=== PATIENT | female | born 1925 | race Asian ===

== ENCOUNTER 2016-08-01 09:33 | Inpatient (IN) | payer MEDICARE, MEDICAID ==
[~2016-08-01] VITALS: Ht 152.4 cm; Wt 54.4 kg
[~2016-08-01 09:33] MED LIST: ACETAMINOPHEN325 M1 ORAL; ASPIRIN-LOW81 MG ORAL; ATORVASTATIN CA10 MG ORAL; DITROPAN10 MG ORAL; DOXYCYCLINE HY100 M2 ORAL; KEFLEX500 M1 ORAL; MULTIVITAMINS1 EA13 ORAL; NAMENDA10 MG ORAL; NORVASC2.5 MG ORAL; SYNTHROID100 MCG ORAL; VASOTEC10 MG ORAL
[2016-08-01 09:35] VITALS: BP 146/75
[2016-08-01] MEDS ORDERED: DOCUSATE SODIU100 MG ORAL (09:42)
[2016-08-01] MEDS ORDERED: DITROPAN XL5 MG ORAL (09:43)
[2016-08-01] MEDS ORDERED: MILK OF MA2400 MG/10 ORAL (09:51)
--- NOTE | 2016-08-01 10:06 | Emergency Room Report ---
History of Present Illness General Chief Complaint: Generalized Weakness Source: Patient, Medical Record, EMS Present Illness HPI Patient is an 89-year-old female brought in by BLS for increased generalized weakness. Patient had prior history of dementia. History is markedly limited by patient's mental status. The patient denies any current pain. The patient appears to be markedly confused. Allergies: Coded Allergies: No Known Allergies (Unverified , 08/20/15) Patient History Past Medical History: see triage record Reviewed Nursing Documentation: PMH: Agreed, PSxH: Agreed Nursing Documentation-PMH Hx Hypertension: Yes Hx Diabetes: No - hypothyroidism Hx Cancer: No Hx Gastrointestinal Problems: Yes - Dysphagia History Of Psychiatric Problem: Yes - Demential with behavioral disturbance; Encephalopathy Hx Neurological Problems: Yes Hx Alzheimer's Disease: Yes Hx Seizures: Yes Review of Systems All Other Systems: limited - by mental status Physical Exam Vital Signs Date Time Temp Pulse Resp B/P Pulse Ox O2 Delivery O2 Flow Rate FiO2 08/01/16 09:26 97.5 110 18 154/105 99 Room Air General Appearance: no apparent distress, alert Eyes: bilateral eye other - right side facial droop ENT: normal pharynx Neck: full range of motion, supple Respiratory: lungs clear, normal breath sounds, no rhonchi Cardiovascular #1: normal peripheral pulses, regular rate, rhythm, no edema Gastrointestinal: normal bowel sounds, non tender, soft, no mass Musculoskeletal: normal inspection, other - right side foot plantar contraction Neurologic: alert, oriented x3, responsive, sensory intact Psychiatric: normal inspection Skin: no rash Medical Decision Making Diagnostic Impression: Primary Impression: UTI (urinary tract infection) Additional Impression: Altered level of consciousness ER Course Patient presented for altered level of consciousness and generalized weakness.Patient presented for generalized weakness. Differential diagnosis included was not limited to anemia, urinary tract infection, electrolyte abnormality, hypothyroidism, myocardial infarction, myasthenia gravis, dehydration, subdural hematoma , CVA among others. Because of complexity of patient's case laboratory testing and imaging studies were ordered.Laboratory testing was notable for elevated white blood count. The patient was noted to be moderately confused. A urinalysis showed evidence of urinary tract infection. Patient started on IV antibiotics. The patient will be admitted to the hospital for further management and treatment of urinary tract infection altered level consciousness. Labs Test 08/01/16 09:40 08/01/16 10:00 White Blood Count 13.1 K/UL (4.8-10.8) Red Blood Count 4.48 M/UL (4.20-5.40) Hemoglobin 13.4 G/DL (12.0-16.0) Hematocrit 42.6 % (37.0-47.0) Mean Corpuscular Volume 95 FL (80-99) Mean Corpuscular Hemoglobin 29.9 PG (27.0-31.0) Mean Corpuscular Hemoglobin Concent 31.4 G/DL (32.0-36.0) Red Cell Distribution Width 12.8 % (11.6-14.8) Platelet Count 371 K/UL (150-450) Mean Platelet Volume 5.8 FL (6.5-10.1) Neutrophils (%) (Auto) 81.9 % (45.0-75.0) Lymphocytes (%) (Auto) 13.4 % (20.0-45.0) Monocytes (%) (Auto) 3.8 % (1.0-10.0) Eosinophils (%) (Auto) 0.5 % (0.0-3.0) Basophils (%) (Auto) 0.5 % (0.0-2.0) Sodium Level 141 mEQ/L (135-145) Potassium Level 3.9 mEQ/L (3.4-4.9) Chloride Level 100 mEQ/L (98-107) Carbon Dioxide Level 23 mEQ/L (20-30) Anion Gap 18 (5-15) Blood Urea Nitrogen 20 mg/dL (7-23) Creatinine 1.3 mg/dL (0.5-0.9) Estimat Glomerular Filtration Rate mL/min (>60) Glucose Level 107 mg/dL (74-106) Lactic Acid Level 1.90 mmol/L (0.66-2.22) Calcium Level 9.2 mg/dL (8.6-10.2) Total Bilirubin 0.5 mg/dL (0.0-1.2) Aspartate Amino Transf (AST/SGOT) 20 U/L (5-40) Alanine Aminotransferase (ALT/SGPT) 20 U/L (3-33) Alkaline Phosphatase 66 U/L (35-104) Total Creatine Kinase 49 U/L (26-140) Creatine Kinase MB 2.8 ng/mL (< 3.8) Creatine Kinase MB Relative Index 5.7 Troponin I < 0.30 ng/mL (<=0.30) Pro-B-Type Natriuretic Peptide 1197 pg/mL (0-450) Total Protein 7.6 g/dL (6.6-8.7) Albumin 3.6 g/dL (3.5-5.2) Globulin 4.0 g/dL Albumin/Globulin Ratio 0.9 (1.0-2.7) Lipase 136 U/L (< 60) Urine Color Pale yellow Urine Appearance Turbid Urine pH 8 (4.5-8.0) Urine Specific [place] 1.015 (1.005-1.035) Urine Protein 3+ (NEGATIVE) Urine Glucose (UA) Negative (NEGATIVE) Urine Ketones 1+ (NEGATIVE) Urine Occult Blood 5+ (NEGATIVE) Urine Nitrite Positive (NEGATIVE) Urine Bilirubin Negative (NEGATIVE) Urine Urobilinogen Normal MG/DL (0.0-1.0) Urine Leukocyte Esterase 3+ (NEGATIVE) Urine RBC 10-15 /HPF (0 - 2) Urine WBC Tntc /HPF (0 - 2) Urine Squamous Epithelial Cells Few /LPF (NONE/OCC) Urine Bacteria Moderate /HPF (NONE) EKG Diagnostic Results Rate: normal - 97 Rhythm: NSR ST Segments: no acute changes Rhythm Strip Diag. Results EP Interpretation: yes Rhythm: NSR, no PVC's, no ectopy Last Vital Signs Date Time Temp Pulse Resp B/P Pulse Ox O2 Delivery O2 Flow Rate FiO2 08/01/16 09:26 97.5 110 18 154/105 99 Room Air Status: unchanged Disposition: ADMITTED INPATIENT Condition: Serious Terence Allison Aug 01, 2016 10:06
[2016-08-01 10:14] LABS: BASOPHILS % (AUTO) 0.5 % (0.0-2.0); EOSINOPHILS % (AUTO) 0.5 % (0.0-3.0); LYMPHOCYTES % (AUTO) 13.4 % (20.0-45.0); MEAN CORPUSCULAR HEMOGLOBIN 29.9 PG (27.0-31.0); MEAN CORPUSCULAR HGB CONC 31.4 G/DL (32.0-36.0); MEAN CORPUSCULAR VOLUME 95 FL (80-99); MEAN PLATELET VOLUME 5.8 FL (6.5-10.1); MONOCYTES % (AUTO) 3.8 % (1.0-10.0); NEUTROPHILS % (AUTO) 81.9 % (45.0-75.0); PLATELET COUNT 371 K/UL (150-450); RED BLOOD COUNT 4.48 M/UL (4.20-5.40); RED CELL DISTRIBUTION WIDTH 12.8 % (11.6-14.8); WHITE BLOOD COUNT 13.1 K/UL (4.8-10.8)
[2016-08-01 10:21] LABS: APPEARANCE,URINE TURBID; KETONES,URINE 1+ (NEGATIVE); LEUKOCYTE ESTERASE ,URINE 3+ (NEGATIVE); NITRITE,URINE POSITIVE (NEGATIVE); PH,URINE 8 (4.5-8.0); PROTEIN,URINE 3+ (NEGATIVE); UROBILINOGEN,URINE NORMAL MG/DL (0.0-1.0)
[2016-08-01 10:25] LABS: SQUAMOUS EPITHELIAL CELL,UR FEW /LPF (NONE/OCC); WBC,URINE TNTC /HPF (0 - 2)
[2016-08-01 10:26] LABS: BACTERIA,URINE MODERATE /HPF
[2016-08-01 10:28] LABS: ALANINE AMINOTRANSFERASE 20 U/L (3-33); ALBUMIN/GLOBULIN RATIO 0.9 (1.0-2.7); ANION GAP 18 (5-15); ASPARTATE AMINO TRANSFERASE 20 U/L (5-40); CALCIUM 9.2 mg/dL (8.6-10.2); CARBON DIOXIDE 23 mEQ/L (20-30); CHLORIDE 100 mEQ/L (98-107); CREATININE 1.3 mg/dL (0.5-0.9); HEMOLYSIS 7; LIPASE 136 U/L (< 60); POTASSIUM 3.9 mEQ/L (3.4-4.9); SODIUM 141 mEQ/L (135-145); TOTAL PROTEIN 7.6 g/dL (6.6-8.7); TROPONIN I < 0.30 ng/mL (<=0.30)
[2016-08-01] MEDS ORDERED: Tubing IV Cassette IV ONE (10:35)
[2016-08-01] MEDS ORDERED: NS 50 ML IV ONE (10:35)
[2016-08-01 10:38] LABS: CKMB 2.8 ng/mL (< 3.8)
--- NOTE | 2016-08-01 10:47 | Diagnostic Imaging Report ---
Indications: Altered mental status, right-sided weakness Technique: Continuous helical CT imaging of the brain was performed with nonionic exposure control on a Siemens sensation [address] scanner. Axial and coronal images were reconstructed at 5 mm slice thickness and interval. CTDI volume(s): 70 mGy Total DLP: 1425 mGy-cm Findings: Comparison: None Confluent low attenuation is present in the bilateral periventricular and deep cerebral white matter. Circumscribed foci of low attenuation/parenchymal loss in bilateral dowell radiata. Ventricles, cisterns, and sulci are diffusely prominent. No evidence of mass or hemorrhage, mass effect, midline shift, hydrocephalus, or increased intracranial pressure. Bone window images are unremarkable. Visualized paranasal sinuses and mastoid air cells are clear. IMPRESSION: No evidence of acute intracranial pathology . Early/subtle acute abnormalities may be missed, however. If clinically indicated, MRI of the brain without and with gadolinium may be of benefit in further evaluation. 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 Atrophy The CT scanner at [facility] is accredited by the [employer] and the scans are performed using protocols designed to limit radiation exposure to as low as reasonably achievable to attain images of sufficient resolution adequate for diagnostic evaluation.
[2016-08-01 12:00] VITALS: BP 139/71
[2016-08-01 13:17] VITALS: BP 153/103
--- NOTE | 2016-08-01 13:48 | Infectious Diseases Prog Note ---
Assessment/Plan Problems: (1) UTI (urinary tract infection) Assessment & Plan: will send urine culture and start cefepime (2) Altered level of consciousness Assessment & Plan: head CT is negative, recommend neurology consult (3) Weakness Assessment & Plan: multifactorial, consult PT/OT Subjective Allergies: Coded Allergies: No Known Allergies (Unverified , 08/20/15) Objective Vital Signs Last 24 Hour Vital Signs Date Time Temp Pulse Resp B/P Pulse Ox O2 Delivery O2 Flow Rate FiO2 08/01/16 13:09 96 16 139/90 98 Room Air 08/01/16 12:00 99 18 139/71 96 Room Air 08/01/16 09:35 109 18 146/75 99 Room Air 08/01/16 09:26 97.5 110 18 154/105 99 Room Air Height (Feet): 5 Weight (Pounds): 120 Laboratory Tests Test 08/01/16 09:40 08/01/16 10:00 White Blood Count 13.1 K/UL (4.8-10.8) H Red Blood Count 4.48 M/UL (4.20-5.40) Hemoglobin 13.4 G/DL (12.0-16.0) Hematocrit 42.6 % (37.0-47.0) Mean Corpuscular Volume 95 FL (80-99) Mean Corpuscular Hemoglobin 29.9 PG (27.0-31.0) Mean Corpuscular Hemoglobin Concent 31.4 G/DL (32.0-36.0) L Red Cell Distribution Width 12.8 % (11.6-14.8) Platelet Count 371 K/UL (150-450) Mean Platelet Volume 5.8 FL (6.5-10.1) L Neutrophils (%) (Auto) 81.9 % (45.0-75.0) H Lymphocytes (%) (Auto) 13.4 % (20.0-45.0) L Monocytes (%) (Auto) 3.8 % (1.0-10.0) Eosinophils (%) (Auto) 0.5 % (0.0-3.0) Basophils (%) (Auto) 0.5 % (0.0-2.0) Sodium Level 141 mEQ/L (135-145) Potassium Level 3.9 mEQ/L (3.4-4.9) Chloride Level 100 mEQ/L (98-107) Carbon Dioxide Level 23 mEQ/L (20-30) Anion Gap 18 (5-15) H Blood Urea Nitrogen 20 mg/dL (7-23) Creatinine 1.3 mg/dL (0.5-0.9) H Estimat Glomerular Filtration Rate mL/min (>60) Glucose Level 107 mg/dL (74-106) H Lactic Acid Level 1.90 mmol/L (0.66-2.22) Calcium Level 9.2 mg/dL (8.6-10.2) Total Bilirubin 0.5 mg/dL (0.0-1.2) Aspartate Amino Transf (AST/SGOT) 20 U/L (5-40) Alanine Aminotransferase (ALT/SGPT) 20 U/L (3-33) Alkaline Phosphatase 66 U/L (35-104) Total Creatine Kinase 49 U/L (26-140) Creatine Kinase MB 2.8 ng/mL (< 3.8) Creatine Kinase MB Relative Index 5.7 Troponin I < 0.30 ng/mL (<=0.30) Pro-B-Type Natriuretic Peptide 1197 pg/mL (0-450) H Total Protein 7.6 g/dL (6.6-8.7) Albumin 3.6 g/dL (3.5-5.2) Globulin 4.0 g/dL Albumin/Globulin Ratio 0.9 (1.0-2.7) L Lipase 136 U/L (< 60) H Urine Color Pale yellow Urine Appearance Turbid Urine pH 8 (4.5-8.0) Urine Specific [place] 1.015 (1.005-1.035) Urine Protein 3+ (NEGATIVE) H Urine Glucose (UA) Negative (NEGATIVE) Urine Ketones 1+ (NEGATIVE) H Urine Occult Blood 5+ (NEGATIVE) H Urine Nitrite Positive (NEGATIVE) H Urine Bilirubin Negative (NEGATIVE) Urine Urobilinogen Normal MG/DL (0.0-1.0) Urine Leukocyte Esterase 3+ (NEGATIVE) H Urine RBC 10-15 /HPF (0 - 2) H Urine WBC Tntc /HPF (0 - 2) H Urine Squamous Epithelial Cells Few /LPF (NONE/OCC) Urine Bacteria Moderate /HPF (NONE) H Chai Monte M.D. Aug 01, 2016 13:48
--- NOTE | 2016-08-01 14:57 | Consultation ---
History of Present Illness General Date patient seen: Aug 01, 2016 Chief Complaint: Generalized Weakness Referring physician: dr Ponce Reason for Consultation: + PPD Present Illness HPI 89-year-old female with hx of dementia brought in by BLS for increased generalized weakness. The patient appeared to be markedly confused. She was diagnosed to have sepsis and UTI, and admitted for further work up. She had positive ppd, and i was asked to evaluate her. she is confused and can't give any history. Allergies: Coded Allergies: No Known Allergies (Unverified , 08/20/15) Medication History Scheduled Acetaminophen* (Acetaminophen*), 650 MG ORAL Q4H, (Reported) Aspirin (Aspirin EC), 81 MG ORAL DAILY, (Reported) Atorvastatin Calcium* (Lipitor*), 5 MG ORAL BEDTIME, (Reported) Cephalexin (Cephalexin), 500 MG ORAL FOUR TIMES A DAY Docusate Sodium* (Docusate Sodium*), 100 MG ORAL TWICE A DAY, (Reported) Doxycycline Hyclate (Doxycycline Hyclate), 100 MG ORAL EVERY 12 HOURS Enalapril Maleate* (Vasotec*), 10 MG ORAL DAILY, (Reported) Levothyroxine Sodium* (Synthroid*), 100 MCG ORAL DAILY, (Reported) Memantine Hcl* (Namenda*), 28 MG ORAL DAILY, (Reported) Multivitamin with Minerals (Multivitamins with Minerals), 1 TAB ORAL DAILY, ( Reported) Oxybutynin Chloride (Oxybutynin Chloride), 5 MG ORAL DAILY, (Reported) Oxybutynin Chloride (Ditropan Xl), 5 MG ORAL DAILY, (Reported) Scheduled PRN Magnesium Hydroxide* (Milk Of Magnesia*), 30 ML ORAL DAILY PRN for Constipation, (Reported) Patient History Limited by: medical condition Healthcare decision maker Resuscitation status Advanced Directive on File Past Medical/Surgical History Past Medical/Surgical History: (1) Alzheimer's dementia (2) Encephalopathy Review of Systems All Other Systems: negative except mentioned in HPI Physical Exam General Appearance: WD/WN Lines, tubes and drains: peripheral, central line HEENT: normocephalic Neck: non-tender, normal alignment Respiratory/Chest: chest wall non-tender, lungs clear Cardiovascular/Chest: normal peripheral pulses, normal rate Abdomen: normal bowel sounds Genitourinary/Rectal: normal genital exam Extremities: normal range of motion Last 24 Hour Vital Signs Date Time Temp Pulse Resp B/P Pulse Ox O2 Delivery O2 Flow Rate FiO2 08/01/16 13:17 97.6 125 18 153/103 99 Nasal Cannula 2.0 126 08/01/16 13:09 96 16 139/90 98 Room Air 08/01/16 12:00 99 18 139/71 96 Room Air 08/01/16 09:35 109 18 146/75 99 Room Air 08/01/16 09:26 97.5 110 18 154/105 99 Room Air Laboratory Tests Test 08/01/16 09:40 08/01/16 10:00 White Blood Count 13.1 K/UL (4.8-10.8) H Red Blood Count 4.48 M/UL (4.20-5.40) Hemoglobin 13.4 G/DL (12.0-16.0) Hematocrit 42.6 % (37.0-47.0) Mean Corpuscular Volume 95 FL (80-99) Mean Corpuscular Hemoglobin 29.9 PG (27.0-31.0) Mean Corpuscular Hemoglobin Concent 31.4 G/DL (32.0-36.0) L Red Cell Distribution Width 12.8 % (11.6-14.8) Platelet Count 371 K/UL (150-450) Mean Platelet Volume 5.8 FL (6.5-10.1) L Neutrophils (%) (Auto) 81.9 % (45.0-75.0) H Lymphocytes (%) (Auto) 13.4 % (20.0-45.0) L Monocytes (%) (Auto) 3.8 % (1.0-10.0) Eosinophils (%) (Auto) 0.5 % (0.0-3.0) Basophils (%) (Auto) 0.5 % (0.0-2.0) Sodium Level 141 mEQ/L (135-145) Potassium Level 3.9 mEQ/L (3.4-4.9) Chloride Level 100 mEQ/L (98-107) Carbon Dioxide Level 23 mEQ/L (20-30) Anion Gap 18 (5-15) H Blood Urea Nitrogen 20 mg/dL (7-23) Creatinine 1.3 mg/dL (0.5-0.9) H Estimat Glomerular Filtration Rate mL/min (>60) Glucose Level 107 mg/dL (74-106) H Lactic Acid Level 1.90 mmol/L (0.66-2.22) Calcium Level 9.2 mg/dL (8.6-10.2) Total Bilirubin 0.5 mg/dL (0.0-1.2) Aspartate Amino Transf (AST/SGOT) 20 U/L (5-40) Alanine Aminotransferase (ALT/SGPT) 20 U/L (3-33) Alkaline Phosphatase 66 U/L (35-104) Total Creatine Kinase 49 U/L (26-140) Creatine Kinase MB 2.8 ng/mL (< 3.8) Creatine Kinase MB Relative Index 5.7 Troponin I < 0.30 ng/mL (<=0.30) Pro-B-Type Natriuretic Peptide 1197 pg/mL (0-450) H Total Protein 7.6 g/dL (6.6-8.7) Albumin 3.6 g/dL (3.5-5.2) Globulin 4.0 g/dL Albumin/Globulin Ratio 0.9 (1.0-2.7) L Lipase 136 U/L (< 60) H Urine Color Pale yellow Urine Appearance Turbid Urine pH 8 (4.5-8.0) Urine Specific [place] 1.015 (1.005-1.035) Urine Protein 3+ (NEGATIVE) H Urine Glucose (UA) Negative (NEGATIVE) Urine Ketones 1+ (NEGATIVE) H Urine Occult Blood 5+ (NEGATIVE) H Urine Nitrite Positive (NEGATIVE) H Urine Bilirubin Negative (NEGATIVE) Urine Urobilinogen Normal MG/DL (0.0-1.0) Urine Leukocyte Esterase 3+ (NEGATIVE) H Urine RBC 10-15 /HPF (0 - 2) H Urine WBC Tntc /HPF (0 - 2) H Urine Squamous Epithelial Cells Few /LPF (NONE/OCC) Urine Bacteria Moderate /HPF (NONE) H Height (Feet): 5 Weight (Pounds): 120 Medications Current Medications Medications (Trade) Dose Ordered Sig/Odalis Route PRN Reason Start Time Stop Time Status Last Admin Dose Admin Cefepime HCl/ Dextrose (Maxipime/D5W 50ml) 50 ml @ 100 mls/hr Q12H IVPB 08/01/16 15:00 08/08/16 14:59 Assessment/Plan Problem List: (1) UTI (urinary tract infection) ICD Codes: N39.0 - Urinary tract infection, site not specified SNOMED: 47334572 (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 SNOMED: 124591554 (3) Encephalopathy ICD Codes: G93.40 - Encephalopathy, unspecified SNOMED: 96582720, 411926321 (4) Weakness ICD Codes: R53.1 - Weakness SNOMED: 80911785 (5) Altered level of consciousness ICD Codes: R40.4 - Transient alteration of awareness SNOMED: 6883200 (6) Dementia ICD Codes: F03.90 - Unspecified dementia without behavioral disturbance SNOMED: 54318196 (7) Alzheimer's dementia ICD Codes: G30.9 - Alzheimer's disease, unspecified SNOMED: 07448416 Assessment/Plan IV antibiotics check cultures CT chest to rule out active TB check electrolytes OCTAVIA GORMAN Aug 01, 2016 14:57
[2016-08-01] MEDS ORDERED: Morphine Sulfate 2mg/ml Inj IVP PRN (15:00)
[2016-08-01] MEDS ORDERED: Zolpidem 5mg tab ORAL PRN (15:00)
[2016-08-01] MEDS ORDERED: LORazepam Inj 2mg/ml 1ml IV PRN (15:00)
[2016-08-01] MEDS ORDERED: Mylanta II UD 30ml ORAL PRN (15:00)
[2016-08-01] MEDS ORDERED: Miralax 17gm pkt ORAL PRN (15:00)
[2016-08-01 16:00] VITALS: BP 154/90
[2016-08-01 19:00] VITALS: BP 147/88
[2016-08-01] MEDS: NovoLOG Insulin Flexpen SUBQ SCH (20:28)
--- NOTE | 2016-08-01 20:58 | History and Physical Report ---
DATE OF ADMISSION: 08/01/2016 TIME SEEN: At 2 p.m. CONSULTANTS: 1. Chai Monte M.D. 2. Cira Dorado M.D. 3. Dilma Seay M.D. CHIEF COMPLAINT: Increased confusion, weakness, and UTI. HISTORY OF PRESENT ILLNESS: This is an 89-year-old female from [facility] with the above-mentioned diagnosis. Currently, confused in bed and not talking much. PAST MEDICAL HISTORY: Includes hypertension, encephalopathy, and hypercholesterolemia. PAST SURGICAL HISTORY: Unknown. MEDICATIONS: Includes cefepime for now and IV fluids. ALLERGIES: Denies. SOCIAL HISTORY: No smoking, no alcohol, and no intravenous drug abuse. FAMILY HISTORY: Noncontributory. REVIEW OF SYSTEMS: Not available. PHYSICAL EXAMINATION: GENERAL: Calm in bed, oriented x1, and in no acute distress. VITAL SIGNS: Show temperature 97 degrees, pulse 125, respirations 18, and blood pressure 153/103. CARDIOVASCULAR: No murmur. LUNGS: Distant and clear. ABDOMEN: Bowel sounds are positive. Nontender and nondistended. EXTREMITIES: No cyanosis, clubbing, or edema. NEUROLOGICAL: The patient moves all extremities. She does not want to follow commands. LABORATORY DATA: Laboratory exam show white count 30, hemoglobin and hematocrit are 13 and 42, and platelets are 371,000. BMP shows BUN 20, creatinine 1.3, and glucose 107. BNP is 1197. Lipase 136. ASSESSMENT: 1. Weakness. 2. Tachycardia. 3. Urinary tract infection. 4. Hypertension. 5. Encephalopathy. 6. Hypercholesterolemia. PLAN: Continue premedications. OT, PT, and dietary evaluation. CBC and BMP in the morning. Antibiotics per Infectious Disease. Check labs. Resume home medications. Dr. Monte, Dr. Dorado, Dr. Seay, and Dr. Trujillo to consult. Daniel Ponce D.O. DR: SHANKAR JOB#: [id number] CC:
--- NOTE | 2016-08-01 23:07 | Consultation ---
DATE OF CONSULTATION: INFECTIOUS DISEASE CONSULTATION CONSULTING PHYSICIAN: Chai Monte M.D. REQUESTING PHYSICIAN: Daniel Ponce D.O. REASON FOR CONSULTATION: Urinary tract infection and generalized weakness. Recommendation for antibiotics therapy. HISTORY OF PRESENT ILLNESS: The patient is an 89-year-old female with past medical history of dementia with behavioral disturbance and encephalopathy, who was brought in to [facility] for increased generalized weakness. The patient had history of dementia with poor cognition. Denied any current symptom, but she is a poor historian. History was mainly obtained from the medical record and the nursing staff. The patient seems to be confused and unable to provide good history. In the ED, the patient had temperature of 97.5 degrees with pulse of 110 and O2 saturation of 99% on room air. The white count was found to be elevated around 15.1 with urinalysis showed evidence of urinary tract infection. So, I was asked by the primary provider for antibiotics recommendation and management. PAST MEDICAL HISTORY: Significant for hypertension, dysphagia, dementia with behavioral disturbances, encephalopathy, Alzheimer, and seizure disorder. PAST SURGICAL HISTORY: Negative. MEDICATIONS: She is on enalapril, Namenda, Ditropan, Synthroid, Lipitor, Tylenol, morphine, MiraLAX, Zofran, Ambien, Ativan, Mylanta, and dextrose. ALLERGIES: She has no known drug allergy. SOCIAL HISTORY: She is a [facility] resident. No recent drugs, tobacco, or alcohol. FAMILY HISTORY: Unable to obtain. REVIEW OF SYSTEMS: Unable to obtain. The patient is a poor historian. PHYSICAL EXAMINATION: GENERAL: An elderly female, demented, confused, lying in bed, alert, nonverbal, and not in distress. VITAL SIGNS: Temperature 97.6 degrees, pulse 125, respirations 18, blood pressure 153/103, and pulse oximetry 99% on two liters nasal cannula. HEENT: Normocephalic and atraumatic. Pupils reactive to light. Pale sclera. Dry oral mucosa. No exudate. NECK: Supple. No lymphadenopathy. CARDIOVASCULAR: She is tachycardic. S1 and S2 positive. LUNGS: Clear bilaterally. No wheezing or rhonchi. ABDOMEN: Soft, nontender, and nondistended. Positive bowel sounds. No hepatosplenomegaly or ascites. EXTREMITIES: No edema or cyanosis. LABORATORY DATA: Labs showed white count of 13.1, hemoglobin of 13.4, and platelet count of 371,000. BUN of 20 and creatinine of 1.3. AST of 20 and ALT of 20. Lipase of 136. Urinalysis showed positive nitrates, +3 leukocyte esterase, white cell count too numerous to count, and moderate bacteria. MICROBIOLOGY: Pending. IMAGING: She had a head CT scan, showed no evidence of acute intracranial pathology. ASSESSMENT AND PLAN: 1. Urinary tract infection. The patient will be started empirically on cefepime. We will send for urine culture. Adjust antibiotics as per culture results. 2. Altered mental status, could be partially due to urinary tract infection, but recommend Neurology consultation for further evaluation and management. 3. Weakness, multifactorial. Continue PT, OT, and hydration. 4. Dementia, Alzheimer. Continue supportive care and dementia medicine. 5. Hypertension. Continue blood pressure medicine to keep systolic less than 140. 6. Seizure disorder. Continue seizure medications and neuro check. Chai Monte M.D. DR: ASHA JOB#: [id number] CC: JOSELUIS
[2016-08-02] VITALS (7 sets, daily range): BP systolic 115–168; BP diastolic 55–84
[2016-08-02] MEDS: NovoLOG Insulin Flexpen SUBQ SCH ×4 (05:51→22:25)
[2016-08-02 07:14] LABS: BASOPHILS % (AUTO) 0.5 % (0.0-2.0); EOSINOPHILS % (AUTO) 1.8 % (0.0-3.0); LYMPHOCYTES % (AUTO) 27.1 % (20.0-45.0); MEAN CORPUSCULAR HEMOGLOBIN 30.3 PG (27.0-31.0); MEAN CORPUSCULAR VOLUME 98 FL (80-99); MEAN PLATELET VOLUME 5.6 FL (6.5-10.1); MONOCYTES % (AUTO) 5.6 % (1.0-10.0); NEUTROPHILS % (AUTO) 64.9 % (45.0-75.0); PLATELET COUNT 331 K/UL (150-450); RED BLOOD COUNT 3.87 M/UL (4.20-5.40); RED CELL DISTRIBUTION WIDTH 12.4 % (11.6-14.8); WHITE BLOOD COUNT 10.7 K/UL (4.8-10.8)
[2016-08-02 08:16] LABS: ALANINE AMINOTRANSFERASE 16 U/L (3-33); ANION GAP 16 (5-15); ASPARTATE AMINO TRANSFERASE 19 U/L (5-40); CARBON DIOXIDE 22 mEQ/L (20-30); CHLORIDE 109 mEQ/L (98-107); CHOLESTEROL 129 mg/dL (< 200); CHOLESTEROL/HDL RATIO 5.9 (3.3-4.4); CREATININE 1.4 mg/dL (0.5-0.9); HEMOLYSIS 3; LDL CHOLESTEROL (CALC.) 82 mg/dL (60-99); POTASSIUM 4.4 mEQ/L (3.4-4.9); SODIUM 147 mEQ/L (135-145); TOTAL PROTEIN 6.4 g/dL (6.6-8.7)
[2016-08-02] MEDS: Memantine 10mg tab ORAL SCH ×2 (09:00→22:24)
--- NOTE | 2016-08-02 10:49 | Diagnostic Imaging Report ---
Indication: Chest pain Technique: Continuous helical transaxial imaging of the chest was obtained from the thoracic inlet to the upper abdomen after intravenous nonionic contrast administration. Coronal 2-D reformats were also obtained. Total Dose length Product (DLP): [address] Dose Index Volume (CTDIvol): 8, 33, 18 mGy Comparison: none Findings: There is a slight shift of the heart to the left side. There is mild thickening of the pleura at the left lung base. Minimal linear reticular densities are present at the left lung base likely scarring with resultant mild volume loss. There is no consolidation/airspace disease. Some breathing motion artifact noted at the lung bases. Extensive calcifications are present over the breasts bilaterally. No adenopathy seen. Aorta shows mural calcification and is mildly ectatic. The heart is enlarged. High density foci noted centrally within the kidneys, which are only partially visualized on this examination. The phase of enhancement on this exam is arterial. Therefore the high density foci probably represent stones, rather than excreted contrast. Findings may be confirmed on CT without contrast material or ultrasound. There are multiple hypodense masses bilaterally, incompletely assessed involving the kidneys. These are probably cysts. Impression: No mass identified within the chest. Pleural and parenchymal scarring at the left lung base with some volume loss noted. Arterial vascular disease Suspicion of renal calculi bilaterally, incompletely and inadequately assessed. Additional imaging suggested for confirmation. Suggestion of bilateral renal cysts, incompletely assessed.
[2016-08-02] MEDS ORDERED: Enalapril 5mg tab ONE (11:04)
[2016-08-02] MEDS: Oxybutynin 5mg tab ORAL SCH (11:12)
--- NOTE | 2016-08-02 15:18 | General Progress Note ---
Assessment/Plan Problem List: (1) UTI (urinary tract infection) ICD Codes: N39.0 - Urinary tract infection, site not specified SNOMED: 69199502 (2) Encephalopathy ICD Codes: G93.40 - Encephalopathy, unspecified SNOMED: 35509844, 295150553 (3) Altered level of consciousness ICD Codes: R40.4 - Transient alteration of awareness SNOMED: 2513291 (4) Weakness ICD Codes: R53.1 - Weakness SNOMED: 87942913 (5) Hypertensive urgency ICD Codes: I10 - Essential (primary) hypertension SNOMED: 190768358 (6) Tachycardia ICD Codes: R00.0 - Tachycardia, unspecified SNOMED: 1571321 Status: stable, progressing, tolerating diet Assessment/Plan ot pt diet abx cardio f/u cbc bmp am psyc transfer Subjective Constitutional: Reports: weakness Allergies: Coded Allergies: No Known Allergies (Unverified , 08/20/15) All Systems: reviewed and negative except above Subjective sleepy calm Objective Last 24 Hour Vital Signs Date Time Temp Pulse Resp B/P Pulse Ox O2 Delivery O2 Flow Rate FiO2 08/02/16 12:00 97.0 75 18 139/80 98 Room Air 08/02/16 09:00 140/77 08/02/16 08:00 97.5 71 20 135/55 100 Room Air 08/02/16 04:00 96.8 100 20 115/69 96 Room Air 08/02/16 02:22 89 116/71 08/02/16 00:00 97.7 115 20 168/84 95 Room Air 08/01/16 19:00 97.1 98 18 147/88 Room Air 18 08/01/16 16:00 96.6 120 20 154/90 98 Room Air Intake and Output 08/01/16 08/02/16 19:00 07:00 Intake Total 50 ml 360 ml Output Total 650 ml Balance 50 ml -290 ml Intake Oral 0 ml 360 ml IV Total 50 ml Output Urine Total 650 ml Laboratory Tests 08/02/16 05:45: White Blood Count 10.7, Red Blood Count 3.87L, Hemoglobin 11.7L, Hematocrit 37.8 , Mean Corpuscular Volume 98, Mean Corpuscular Hemoglobin 30.3, Mean Corpuscular Hemoglobin Concent 31.0L, Red Cell Distribution Width 12.4, Platelet Count 331, Mean Platelet Volume 5.6L, Neutrophils (%) (Auto) 64.9, Lymphocytes (%) (Auto) 27.1, Monocytes (%) (Auto) 5.6, Eosinophils (%) (Auto) 1.8, Basophils (%) (Auto) 0.5, Sodium Level 147H, Potassium Level 4.4, Chloride Level 109H, Carbon Dioxide Level 22, Anion Gap 16H, Blood Urea Nitrogen 23, Creatinine 1.4H, Estimat Glomerular Filtration Rate , Glucose Level 82, Calcium Level 9.0, Total Bilirubin 0.4, Aspartate Amino Transf (AST/SGOT) 19, Alanine Aminotransferase (ALT/SGPT) 16, Alkaline Phosphatase 55, Total Protein 6.4L, Albumin 3.3L, Globulin 3.1, Albumin/Globulin Ratio 1.0, Triglycerides Level 125 , Cholesterol Level 129, LDL Cholesterol 82, HDL Cholesterol 22, Cholesterol/ HDL Ratio 5.9H, Thyroid Stimulating Hormone (TSH) 2.010 Height (Feet): 5 Weight (Pounds): 120 General Appearance: lethargic EENT: normal ENT inspection Neck: normal alignment Cardiovascular: normal peripheral pulses, normal rate, regular rhythm Respiratory/Chest: chest wall non-tender, lungs clear, normal breath sounds Abdomen: normal bowel sounds, non tender, soft Extremities: normal inspection Edema: no edema noted Arm (L), no edema noted Arm (R), no edema noted Leg (L), no edema noted Leg (R), no edema noted Pedal (L), no edema noted Pedal (R), no edema noted Generalized Neurologic: motor weakness Skin: normal pigmentation, warm/dry SOURAV WEBB Aug 02, 2016 15:18
--- NOTE | 2016-08-02 18:13 | Pulmonology Progress Note ---
Assessment/Plan Problems: (1) UTI (urinary tract infection) (2) PPD positive (3) Encephalopathy (4) Weakness (5) Altered level of consciousness (6) Dementia (7) Alzheimer's dementia Assessment/Plan ct reviewed, no pulmonary finding should be treated with INh for 6 month check cultures continue antibiotic tolerating diet. Subjective ROS Limited/Unobtainable: Yes Interval Events: confused Allergies: Coded Allergies: No Known Allergies (Unverified , 08/20/15) Objective Last 24 Hour Vital Signs Date Time Temp Pulse Resp B/P Pulse Ox O2 Delivery O2 Flow Rate FiO2 08/02/16 15:55 97.0 88 20 153/74 96 Room Air 08/02/16 12:00 97.0 75 18 139/80 98 Room Air 08/02/16 09:00 140/77 08/02/16 08:00 97.5 71 20 135/55 100 Room Air 08/02/16 04:00 96.8 100 20 115/69 96 Room Air 08/02/16 02:22 89 116/71 08/02/16 00:00 97.7 115 20 168/84 95 Room Air 08/01/16 19:00 97.1 98 18 147/88 Room Air 18 Intake and Output 08/01/16 08/02/16 19:00 07:00 Intake Total 50 ml 360 ml Output Total 650 ml Balance 50 ml -290 ml Intake Oral 0 ml 360 ml IV Total 50 ml Output Urine Total 650 ml General Appearance: WD/WN HEENT: normocephalic, atraumatic Respiratory/Chest: chest wall non-tender, lungs clear Cardiovascular: normal peripheral pulses, regular rhythm Abdomen: normal bowel sounds, soft, non tender Extremities: no cyanosis Microbiology Date/Time Source Procedure Growth Status 08/01/16 10:00 Urine,Clean Catch Urine Culture - Preliminary Gram Negative Bacillus 1 Resulted Laboratory Tests 08/02/16 05:45: White Blood Count 10.7, Red Blood Count 3.87L, Hemoglobin 11.7L, Hematocrit 37.8 , Mean Corpuscular Volume 98, Mean Corpuscular Hemoglobin 30.3, Mean Corpuscular Hemoglobin Concent 31.0L, Red Cell Distribution Width 12.4, Platelet Count 331, Mean Platelet Volume 5.6L, Neutrophils (%) (Auto) 64.9, Lymphocytes (%) (Auto) 27.1, Monocytes (%) (Auto) 5.6, Eosinophils (%) (Auto) 1.8, Basophils (%) (Auto) 0.5, Sodium Level 147H, Potassium Level 4.4, Chloride Level 109H, Carbon Dioxide Level 22, Anion Gap 16H, Blood Urea Nitrogen 23, Creatinine 1.4H, Estimat Glomerular Filtration Rate , Glucose Level 82, Calcium Level 9.0, Total Bilirubin 0.4, Aspartate Amino Transf (AST/SGOT) 19, Alanine Aminotransferase (ALT/SGPT) 16, Alkaline Phosphatase 55, Total Protein 6.4L, Albumin 3.3L, Globulin 3.1, Albumin/Globulin Ratio 1.0, Triglycerides Level 125 , Cholesterol Level 129, LDL Cholesterol 82, HDL Cholesterol 22, Cholesterol/ HDL Ratio 5.9H, Thyroid Stimulating Hormone (TSH) 2.010 Current Medications Medications (Trade) Dose Ordered Sig/Odalis Route PRN Reason Start Time Stop Time Status Last Admin Dose Admin Acetaminophen (Tylenol) 650 mg Q4H PRN ORAL fever 08/01/16 15:00 08/31/16 14:59 Al Hydroxide/Mg Hydroxide (Mylanta II) 30 ml Q6H PRN ORAL dyspepsia 08/01/16 15:00 08/31/16 14:59 Atorvastatin Calcium (Lipitor) 5 mg BEDTIME ORAL 08/01/16 21:00 08/31/16 20:59 08/01/16 20:26 Cefepime HCl/ Dextrose (Maxipime/D5W 50ml) 50 ml @ 100 mls/hr Q12H IVPB 08/01/16 15:00 08/08/16 14:59 08/02/16 11:14 Dextrose (Dextrose 50%) STAT PRN IV Hypoglycemia 08/01/16 15:00 08/31/16 14:59 Enalapril Maleate (Vasotec) 10 mg DAILY ORAL 08/02/16 09:00 09/01/16 08:59 Insulin Aspart (NovoLOG) BEFORE MEALS AND HS SUBQ 08/01/16 21:00 08/31/16 20:59 08/02/16 16:30 Levothyroxine Sodium (Synthroid) 100 mcg DAILY@0630 ORAL 08/02/16 06:30 09/01/16 06:29 08/02/16 05:53 Lorazepam (Ativan 2mg/ml 1ml) 0.5 mg Q4H PRN IV For Anxiety 08/01/16 15:00 08/08/16 14:59 08/01/16 16:51 Memantine (Namenda) 10 mg Q12HR ORAL 08/02/16 09:00 09/01/16 08:59 Morphine Sulfate (Morphine Sulfate) 1 mg EVERY 4 HOURS PRN IVP For Pain 08/01/16 15:00 08/08/16 14:59 08/02/16 01:03 Ondansetron HCl (Zofran) 4 mg Q6H PRN IVP Nausea & Vomiting 08/01/16 15:00 08/31/16 14:59 Oxybutynin Chloride (Ditropan) 5 mg DAILY ORAL 08/02/16 09:00 09/01/16 08:59 08/02/16 11:12 Polyethylene Glycol (Miralax) 17 gm HSPRN PRN ORAL Constipation 08/01/16 15:00 08/31/16 14:59 Zolpidem Tartrate (Ambien) 5 mg HSPRN PRN ORAL Insomnia 08/01/16 15:00 08/31/16 14:59 OCTAVIA GORMAN Aug 02, 2016 18:13
--- NOTE | 2016-08-02 18:26 | Infectious Diseases Prog Note ---
Assessment/Plan Problems: (1) UTI (urinary tract infection) Assessment & Plan: await urine culture, continue cefepime (2) Altered level of consciousness Assessment & Plan: head CT is negative, recommend neurology consult (3) Weakness Assessment & Plan: multifactorial, consult PT/OT Subjective ROS Limited/Unobtainable: Yes Allergies: Coded Allergies: No Known Allergies (Unverified , 08/20/15) Subjective she was doing ok, up in bed, demented, not in distress. Objective Vital Signs Last 24 Hour Vital Signs Date Time Temp Pulse Resp B/P Pulse Ox O2 Delivery O2 Flow Rate FiO2 08/02/16 15:55 97.0 88 20 153/74 96 Room Air 08/02/16 12:00 97.0 75 18 139/80 98 Room Air 08/02/16 09:00 140/77 08/02/16 08:00 97.5 71 20 135/55 100 Room Air 08/02/16 04:00 96.8 100 20 115/69 96 Room Air 08/02/16 02:22 89 116/71 08/02/16 00:00 97.7 115 20 168/84 95 Room Air 08/01/16 19:00 97.1 98 18 147/88 Room Air 18 Height (Feet): 5 Weight (Pounds): 120 General Appearance: WD/WN, no acute distress HEENT: normocephalic, atraumatic, anicteric, mucous membranes moist Respiratory/Chest: chest wall non-tender, lungs clear, normal breath sounds, no respiratory distress, no accessory muscle use Cardiovascular: normal peripheral pulses, normal rate, regular rhythm, no gallop/murmur Abdomen: normal bowel sounds, soft, non tender, no organomegaly, non distended , no mass, no scars Extremities: no cyanosis, no clubbing Skin: no rash, no lesions, no ulcers Microbiology Date/Time Source Procedure Growth Status 08/01/16 10:00 Urine,Clean Catch Urine Culture - Preliminary Gram Negative Bacillus 1 Resulted Laboratory Tests Test 08/02/16 05:45 White Blood Count 10.7 K/UL (4.8-10.8) Red Blood Count 3.87 M/UL (4.20-5.40) L Hemoglobin 11.7 G/DL (12.0-16.0) L Hematocrit 37.8 % (37.0-47.0) Mean Corpuscular Volume 98 FL (80-99) Mean Corpuscular Hemoglobin 30.3 PG (27.0-31.0) Mean Corpuscular Hemoglobin Concent 31.0 G/DL (32.0-36.0) L Red Cell Distribution Width 12.4 % (11.6-14.8) Platelet Count 331 K/UL (150-450) Mean Platelet Volume 5.6 FL (6.5-10.1) L Neutrophils (%) (Auto) 64.9 % (45.0-75.0) Lymphocytes (%) (Auto) 27.1 % (20.0-45.0) Monocytes (%) (Auto) 5.6 % (1.0-10.0) Eosinophils (%) (Auto) 1.8 % (0.0-3.0) Basophils (%) (Auto) 0.5 % (0.0-2.0) Sodium Level 147 mEQ/L (135-145) H Potassium Level 4.4 mEQ/L (3.4-4.9) Chloride Level 109 mEQ/L (98-107) H Carbon Dioxide Level 22 mEQ/L (20-30) Anion Gap 16 (5-15) H Blood Urea Nitrogen 23 mg/dL (7-23) Creatinine 1.4 mg/dL (0.5-0.9) H Estimat Glomerular Filtration Rate mL/min (>60) Glucose Level 82 mg/dL (74-106) Calcium Level 9.0 mg/dL (8.6-10.2) Total Bilirubin 0.4 mg/dL (0.0-1.2) Aspartate Amino Transf (AST/SGOT) 19 U/L (5-40) Alanine Aminotransferase (ALT/SGPT) 16 U/L (3-33) Alkaline Phosphatase 55 U/L (35-104) Total Protein 6.4 g/dL (6.6-8.7) L Albumin 3.3 g/dL (3.5-5.2) L Globulin 3.1 g/dL Albumin/Globulin Ratio 1.0 (1.0-2.7) Triglycerides Level 125 mg/dL (< 150) Cholesterol Level 129 mg/dL (< 200) LDL Cholesterol 82 mg/dL (60-99) HDL Cholesterol 22 mg/dL (> 60) Cholesterol/HDL Ratio 5.9 (3.3-4.4) H Thyroid Stimulating Hormone (TSH) 2.010 uIU/mL (0.300-4.500) Current Medications Medications (Trade) Dose Ordered Sig/Odalis Route PRN Reason Start Time Stop Time Status Last Admin Dose Admin Acetaminophen (Tylenol) 650 mg Q4H PRN ORAL fever 08/01/16 15:00 08/31/16 14:59 Al Hydroxide/Mg Hydroxide (Mylanta II) 30 ml Q6H PRN ORAL dyspepsia 08/01/16 15:00 08/31/16 14:59 Atorvastatin Calcium (Lipitor) 5 mg BEDTIME ORAL 08/01/16 21:00 08/31/16 20:59 08/01/16 20:26 Cefepime HCl/ Dextrose (Maxipime/D5W 50ml) 50 ml @ 100 mls/hr Q12H IVPB 08/01/16 15:00 08/08/16 14:59 08/02/16 11:14 Dextrose (Dextrose 50%) STAT PRN IV Hypoglycemia 08/01/16 15:00 08/31/16 14:59 Enalapril Maleate (Vasotec) 10 mg DAILY ORAL 08/02/16 09:00 09/01/16 08:59 Insulin Aspart (NovoLOG) BEFORE MEALS AND HS SUBQ 08/01/16 21:00 08/31/16 20:59 08/02/16 16:30 Levothyroxine Sodium (Synthroid) 100 mcg DAILY@0630 ORAL 08/02/16 06:30 09/01/16 06:29 08/02/16 05:53 Lorazepam (Ativan 2mg/ml 1ml) 0.5 mg Q4H PRN IV For Anxiety 08/01/16 15:00 08/08/16 14:59 08/01/16 16:51 Memantine (Namenda) 10 mg Q12HR ORAL 08/02/16 09:00 09/01/16 08:59 Morphine Sulfate (Morphine Sulfate) 1 mg EVERY 4 HOURS PRN IVP For Pain 08/01/16 15:00 08/08/16 14:59 08/02/16 01:03 Ondansetron HCl (Zofran) 4 mg Q6H PRN IVP Nausea & Vomiting 08/01/16 15:00 08/31/16 14:59 Oxybutynin Chloride (Ditropan) 5 mg DAILY ORAL 08/02/16 09:00 09/01/16 08:59 08/02/16 11:12 Polyethylene Glycol (Miralax) 17 gm HSPRN PRN ORAL Constipation 08/01/16 15:00 08/31/16 14:59 Zolpidem Tartrate (Ambien) 5 mg HSPRN PRN ORAL Insomnia 08/01/16 15:00 08/31/16 14:59 Chai Monte M.D. Aug 02, 2016 18:26
[2016-08-03] VITALS: BP 128/73
[2016-08-03 04:00] VITALS: BP 122/52
[2016-08-03] MEDS: NovoLOG Insulin Flexpen SUBQ SCH ×4 (05:57→21:30)
[2016-08-03 07:31] LABS: ANION GAP 17 (5-15); CALCIUM 8.7 mg/dL (8.6-10.2); CARBON DIOXIDE 21 mEQ/L (20-30); CHLORIDE 109 mEQ/L (98-107); CREATININE 1.2 mg/dL (0.5-0.9); HEMOLYSIS 1; POTASSIUM 3.7 mEQ/L (3.4-4.9); SODIUM 147 mEQ/L (135-145)
[2016-08-03 07:36] LABS: BASOPHILS % (AUTO) 0.7 % (0.0-2.0); EOSINOPHILS % (AUTO) 2.8 % (0.0-3.0); LYMPHOCYTES % (AUTO) 27.1 % (20.0-45.0); MEAN CORPUSCULAR HEMOGLOBIN 30.6 PG (27.0-31.0); MEAN CORPUSCULAR HGB CONC 32.2 G/DL (32.0-36.0); MEAN CORPUSCULAR VOLUME 95 FL (80-99); MEAN PLATELET VOLUME 5.7 FL (6.5-10.1); MONOCYTES % (AUTO) 5.4 % (1.0-10.0); PLATELET COUNT 361 K/UL (150-450); RED BLOOD COUNT 3.99 M/UL (4.20-5.40); RED CELL DISTRIBUTION WIDTH 12.7 % (11.6-14.8); WHITE BLOOD COUNT 7.8 K/UL (4.8-10.8)
[2016-08-03 08:00] VITALS: BP 119/57
[2016-08-03] MEDS: Oxybutynin 5mg tab ORAL SCH (10:29)
[2016-08-03] MEDS: Memantine 10mg tab ORAL SCH ×2 (10:29→21:43)
[2016-08-03] MEDS ORDERED: cefTRIAXone 1 GM in D5W 55 ML IVPB SCH (12:30)
--- NOTE | 2016-08-03 14:51 | General Progress Note ---
Assessment/Plan Problem List: (1) UTI (urinary tract infection) ICD Codes: N39.0 - Urinary tract infection, site not specified SNOMED: 84537059 (2) Encephalopathy ICD Codes: G93.40 - Encephalopathy, unspecified SNOMED: 41504643, 348082026 (3) Altered level of consciousness ICD Codes: R40.4 - Transient alteration of awareness SNOMED: 8367122 (4) Weakness ICD Codes: R53.1 - Weakness SNOMED: 68633960 (5) Hypertensive urgency ICD Codes: I10 - Essential (primary) hypertension SNOMED: 886541558 (6) Tachycardia ICD Codes: R00.0 - Tachycardia, unspecified SNOMED: 0471659 Status: stable, progressing, tolerating diet Assessment/Plan ot pt diet abx cardio f/u cbc bmp am psyc transfer Subjective Constitutional: Reports: weakness Allergies: Coded Allergies: No Known Allergies (Unverified , 08/20/15) All Systems: reviewed and negative except above Subjective sleepy calm Objective Last 24 Hour Vital Signs Date Time Temp Pulse Resp B/P Pulse Ox O2 Delivery O2 Flow Rate FiO2 08/03/16 12:00 97.0 67 20 96 08/03/16 10:29 119/57 08/03/16 08:00 97.0 72 20 119/57 99 Room Air 08/03/16 04:00 96.4 67 20 122/52 98 Room Air 08/03/16 00:00 96.1 70 20 128/73 97 Room Air 08/02/16 19:00 97.3 79 20 128/82 96 Room Air 08/02/16 15:55 97.0 88 20 153/74 96 Room Air Intake and Output 08/02/16 08/03/16 18:59 06:59 Intake Total 220 ml Output Total 350 ml 550 ml Balance -350 ml -330 ml Intake Oral 170 ml IV Total 50 ml Output Urine Total 350 ml 550 ml Laboratory Tests 08/03/16 05:55: White Blood Count 7.8, Red Blood Count 3.99L, Hemoglobin 12.2, Hematocrit 38.1, Mean Corpuscular Volume 95, Mean Corpuscular Hemoglobin 30.6, Mean Corpuscular Hemoglobin Concent 32.2, Red Cell Distribution Width 12.7, Platelet Count 361, Mean Platelet Volume 5.7L, Neutrophils (%) (Auto) 64.0, Lymphocytes (%) (Auto) 27.1, Monocytes (%) (Auto) 5.4, Eosinophils (%) (Auto) 2.8, Basophils (%) (Auto ) 0.7, Sodium Level 147H, Potassium Level 3.7, Chloride Level 109H, Carbon Dioxide Level 21, Anion Gap 17H, Blood Urea Nitrogen 21, Creatinine 1.2H, Estimat Glomerular Filtration Rate , Glucose Level 103, Calcium Level 8.7 Height (Feet): 5 Weight (Pounds): 120 General Appearance: lethargic EENT: normal ENT inspection Neck: normal alignment Cardiovascular: normal peripheral pulses, normal rate, regular rhythm Respiratory/Chest: chest wall non-tender, lungs clear, normal breath sounds Abdomen: normal bowel sounds, non tender, soft Extremities: normal inspection Edema: no edema noted Arm (L), no edema noted Arm (R), no edema noted Leg (L), no edema noted Leg (R), no edema noted Pedal (L), no edema noted Pedal (R), no edema noted Generalized Neurologic: motor weakness Skin: normal pigmentation, warm/dry SOURAV WEBB Aug 03, 2016 14:50
[2016-08-03 16:15] VITALS: BP 136/74
--- NOTE | 2016-08-03 17:14 | Infectious Diseases Prog Note ---
Assessment/Plan Problems: (1) UTI (urinary tract infection) Assessment & Plan: await urine culture, continue cefepime (2) Altered level of consciousness Assessment & Plan: head CT is negative, recommend neurology consult (3) Weakness Assessment & Plan: multifactorial, consult PT/OT Subjective ROS Limited/Unobtainable: Yes Allergies: Coded Allergies: No Known Allergies (Unverified , 08/20/15) Subjective she was doing ok, up in bed, demented, not in distress. Objective Vital Signs Last 24 Hour Vital Signs Date Time Temp Pulse Resp B/P Pulse Ox O2 Delivery O2 Flow Rate FiO2 08/03/16 12:00 97.0 67 20 96 08/03/16 10:29 119/57 08/03/16 08:00 97.0 72 20 119/57 99 Room Air 08/03/16 04:00 96.4 67 20 122/52 98 Room Air 08/03/16 00:00 96.1 70 20 128/73 97 Room Air 08/02/16 19:00 97.3 79 20 128/82 96 Room Air Height (Feet): 5 Weight (Pounds): 120 General Appearance: WD/WN, no acute distress HEENT: normocephalic, atraumatic, anicteric, mucous membranes moist, PERRL Respiratory/Chest: chest wall non-tender, lungs clear, normal breath sounds, no respiratory distress Cardiovascular: normal peripheral pulses, normal rate, regular rhythm, no gallop/murmur, no JVD Abdomen: normal bowel sounds, soft, non tender, no organomegaly, non distended , no mass, no scars Extremities: no cyanosis, no clubbing Skin: no rash, no lesions, no ulcers Microbiology Date/Time Source Procedure Growth Status 08/01/16 09:50 Blood Blood Culture - Preliminary NO GROWTH AFTER 24 HOURS Resulted 08/01/16 09:40 Blood Blood Culture - Preliminary NO GROWTH AFTER 24 HOURS Resulted 08/01/16 10:00 Urine,Clean Catch Urine Culture - Final Proteus Mirabilis Complete Laboratory Tests Test 08/03/16 05:55 White Blood Count 7.8 K/UL (4.8-10.8) Red Blood Count 3.99 M/UL (4.20-5.40) L Hemoglobin 12.2 G/DL (12.0-16.0) Hematocrit 38.1 % (37.0-47.0) Mean Corpuscular Volume 95 FL (80-99) Mean Corpuscular Hemoglobin 30.6 PG (27.0-31.0) Mean Corpuscular Hemoglobin Concent 32.2 G/DL (32.0-36.0) Red Cell Distribution Width 12.7 % (11.6-14.8) Platelet Count 361 K/UL (150-450) Mean Platelet Volume 5.7 FL (6.5-10.1) L Neutrophils (%) (Auto) 64.0 % (45.0-75.0) Lymphocytes (%) (Auto) 27.1 % (20.0-45.0) Monocytes (%) (Auto) 5.4 % (1.0-10.0) Eosinophils (%) (Auto) 2.8 % (0.0-3.0) Basophils (%) (Auto) 0.7 % (0.0-2.0) Sodium Level 147 mEQ/L (135-145) H Potassium Level 3.7 mEQ/L (3.4-4.9) Chloride Level 109 mEQ/L (98-107) H Carbon Dioxide Level 21 mEQ/L (20-30) Anion Gap 17 (5-15) H Blood Urea Nitrogen 21 mg/dL (7-23) Creatinine 1.2 mg/dL (0.5-0.9) H Estimat Glomerular Filtration Rate mL/min (>60) Glucose Level 103 mg/dL (74-106) Calcium Level 8.7 mg/dL (8.6-10.2) Current Medications Medications (Trade) Dose Ordered Sig/Odalis Route PRN Reason Start Time Stop Time Status Last Admin Dose Admin Acetaminophen (Tylenol) 650 mg Q4H PRN ORAL fever 08/01/16 15:00 08/31/16 14:59 Al Hydroxide/Mg Hydroxide (Mylanta II) 30 ml Q6H PRN ORAL dyspepsia 08/01/16 15:00 08/31/16 14:59 Atorvastatin Calcium (Lipitor) 5 mg BEDTIME ORAL 08/01/16 21:00 08/31/16 20:59 08/02/16 22:24 Ceftriaxone Sodium/Dextrose (Rocephin/D5W 50ml) 55 ml @ 110 mls/hr Q24H IVPB 08/03/16 12:30 08/10/16 12:29 08/03/16 13:20 Dextrose (Dextrose 50%) STAT PRN IV Hypoglycemia 08/01/16 15:00 08/31/16 14:59 Enalapril Maleate (Vasotec) 10 mg DAILY ORAL 08/02/16 09:00 09/01/16 08:59 08/03/16 10:29 Insulin Aspart BEFORE MEALS AND HS SUBQ 08/01/16 21:00 08/31/16 20:59 08/03/16 17:10 Levothyroxine Sodium (Synthroid) 100 mcg DAILY@0630 ORAL 08/02/16 06:30 09/01/16 06:29 08/03/16 05:57 Lorazepam (Ativan 2mg/ml 1ml) 0.5 mg Q4H PRN IV For Anxiety 08/01/16 15:00 08/08/16 14:59 08/01/16 16:51 Memantine (Namenda) 10 mg Q12HR ORAL 08/02/16 09:00 09/01/16 08:59 08/03/16 10:29 Morphine Sulfate (Morphine Sulfate) 1 mg EVERY 4 HOURS PRN IVP For Pain 08/01/16 15:00 08/08/16 14:59 08/02/16 01:03 Ondansetron HCl (Zofran) 4 mg Q6H PRN IVP Nausea & Vomiting 08/01/16 15:00 08/31/16 14:59 Oxybutynin Chloride (Ditropan) 5 mg DAILY ORAL 08/02/16 09:00 09/01/16 08:59 08/03/16 10:29 Polyethylene Glycol (Miralax) 17 gm HSPRN PRN ORAL Constipation 08/01/16 15:00 08/31/16 14:59 Zolpidem Tartrate (Ambien) 5 mg HSPRN PRN ORAL Insomnia 08/01/16 15:00 08/31/16 14:59 Chai Monte M.D. Aug 03, 2016 17:14
--- NOTE | 2016-08-03 18:09 | Pulmonology Progress Note ---
Assessment/Plan Problems: (1) UTI (urinary tract infection) (2) PPD positive (3) Encephalopathy (4) Weakness (5) Altered level of consciousness (6) Dementia (7) Alzheimer's dementia Assessment/Plan ct reviewed, no pulmonary finding should be treated with INh for 6 month check cultures continue antibiotic tolerating diet. Subjective ROS Limited/Unobtainable: Yes Constitutional: Reports: fatigue Genitourinary: Reports: dysuria, hematuria Allergies: Coded Allergies: No Known Allergies (Unverified , 08/20/15) Objective Last 24 Hour Vital Signs Date Time Temp Pulse Resp B/P Pulse Ox O2 Delivery O2 Flow Rate FiO2 08/03/16 12:00 97.0 67 20 96 08/03/16 10:29 119/57 08/03/16 08:00 97.0 72 20 119/57 99 Room Air 08/03/16 04:00 96.4 67 20 122/52 98 Room Air 08/03/16 00:00 96.1 70 20 128/73 97 Room Air 08/02/16 19:00 97.3 79 20 128/82 96 Room Air Intake and Output 08/02/16 08/03/16 19:00 07:00 Intake Total 220 ml Output Total 350 ml 550 ml Balance -350 ml -330 ml Intake Oral 170 ml IV Total 50 ml Output Urine Total 350 ml 550 ml General Appearance: no acute distress HEENT: normocephalic, atraumatic, PERRL Respiratory/Chest: chest wall non-tender, lungs clear, normal breath sounds Breasts: no masses Cardiovascular: normal peripheral pulses, normal rate, regular rhythm, no JVD Abdomen: normal bowel sounds, soft, non tender, no organomegaly Genitourinary: normal external genitalia Extremities: no cyanosis Skin: no rash, no lesions Neurologic/Psychiatric: greens picker II-XII grossly normal, abnormal CN, motor weakness , disoriented, aphasia, depressed affect Microbiology Date/Time Source Procedure Growth Status 08/01/16 09:50 Blood Blood Culture - Preliminary NO GROWTH AFTER 24 HOURS Resulted 08/01/16 09:40 Blood Blood Culture - Preliminary NO GROWTH AFTER 24 HOURS Resulted 08/01/16 10:00 Urine,Clean Catch Urine Culture - Final Proteus Mirabilis Complete Laboratory Tests 08/03/16 05:55: White Blood Count 7.8, Red Blood Count 3.99L, Hemoglobin 12.2, Hematocrit 38.1, Mean Corpuscular Volume 95, Mean Corpuscular Hemoglobin 30.6, Mean Corpuscular Hemoglobin Concent 32.2, Red Cell Distribution Width 12.7, Platelet Count 361, Mean Platelet Volume 5.7L, Neutrophils (%) (Auto) 64.0, Lymphocytes (%) (Auto) 27.1, Monocytes (%) (Auto) 5.4, Eosinophils (%) (Auto) 2.8, Basophils (%) (Auto ) 0.7, Sodium Level 147H, Potassium Level 3.7, Chloride Level 109H, Carbon Dioxide Level 21, Anion Gap 17H, Blood Urea Nitrogen 21, Creatinine 1.2H, Estimat Glomerular Filtration Rate , Glucose Level 103, Calcium Level 8.7 Current Medications Medications (Trade) Dose Ordered Sig/Odalis Route PRN Reason Start Time Stop Time Status Last Admin Dose Admin Acetaminophen (Tylenol) 650 mg Q4H PRN ORAL fever 08/01/16 15:00 08/31/16 14:59 Al Hydroxide/Mg Hydroxide (Mylanta II) 30 ml Q6H PRN ORAL dyspepsia 08/01/16 15:00 08/31/16 14:59 Atorvastatin Calcium (Lipitor) 5 mg BEDTIME ORAL 08/01/16 21:00 08/31/16 20:59 08/02/16 22:24 Ceftriaxone Sodium/Dextrose (Rocephin/D5W 50ml) 55 ml @ 110 mls/hr Q24H IVPB 08/03/16 12:30 08/10/16 12:29 08/03/16 13:20 Dextrose (Dextrose 50%) STAT PRN IV Hypoglycemia 08/01/16 15:00 08/31/16 14:59 Enalapril Maleate (Vasotec) 10 mg DAILY ORAL 08/02/16 09:00 09/01/16 08:59 08/03/16 10:29 Insulin Aspart BEFORE MEALS AND HS SUBQ 08/01/16 21:00 08/31/16 20:59 08/03/16 17:10 Levothyroxine Sodium (Synthroid) 100 mcg DAILY@0630 ORAL 08/02/16 06:30 09/01/16 06:29 08/03/16 05:57 Lorazepam (Ativan 2mg/ml 1ml) 0.5 mg Q4H PRN IV For Anxiety 08/01/16 15:00 08/08/16 14:59 08/01/16 16:51 Memantine (Namenda) 10 mg Q12HR ORAL 08/02/16 09:00 09/01/16 08:59 08/03/16 10:29 Morphine Sulfate (Morphine Sulfate) 1 mg EVERY 4 HOURS PRN IVP For Pain 08/01/16 15:00 08/08/16 14:59 08/02/16 01:03 Ondansetron HCl (Zofran) 4 mg Q6H PRN IVP Nausea & Vomiting 08/01/16 15:00 08/31/16 14:59 Oxybutynin Chloride (Ditropan) 5 mg DAILY ORAL 08/02/16 09:00 09/01/16 08:59 08/03/16 10:29 Polyethylene Glycol (Miralax) 17 gm HSPRN PRN ORAL Constipation 08/01/16 15:00 08/31/16 14:59 Zolpidem Tartrate (Ambien) 5 mg HSPRN PRN ORAL Insomnia 08/01/16 15:00 08/31/16 14:59 OCTAVIA GORMAN Aug 03, 2016 18:09
[2016-08-03 20:01] VITALS: BP 129/94
--- NOTE | 2016-08-03 20:34 | Cardiology Report ---
APPROVED REPORT EKG Measurement Heart [id number] Sinus rhythm with premature atrial complexes Otherwise normal ECG
--- NOTE | 2016-08-03 21:00 | Cardiology Progress Note ---
Assessment/Plan Assessment/Plan The patient is seen and examined, full consult note will be dictated shortly. Objective Last 24 Hour Vital Signs Date Time Temp Pulse Resp B/P Pulse Ox O2 Delivery O2 Flow Rate FiO2 08/03/16 20:01 98.2 68 18 129/94 99 Room Air 08/03/16 16:15 96.4 67 20 136/74 97 Room Air 08/03/16 12:00 97.0 67 20 96 08/03/16 10:29 119/57 08/03/16 08:00 97.0 72 20 119/57 99 Room Air 08/03/16 04:00 96.4 67 20 122/52 98 Room Air 08/03/16 00:00 96.1 70 20 128/73 97 Room Air Intake and Output 08/02/16 08/03/16 19:00 07:00 Intake Total 220 ml Output Total 350 ml 550 ml Balance -350 ml -330 ml Intake Oral 170 ml IV Total 50 ml Output Urine Total 350 ml 550 ml Laboratory Tests Test 08/03/16 05:55 White Blood Count 7.8 K/UL (4.8-10.8) Red Blood Count 3.99 M/UL (4.20-5.40) L Hemoglobin 12.2 G/DL (12.0-16.0) Hematocrit 38.1 % (37.0-47.0) Mean Corpuscular Volume 95 FL (80-99) Mean Corpuscular Hemoglobin 30.6 PG (27.0-31.0) Mean Corpuscular Hemoglobin Concent 32.2 G/DL (32.0-36.0) Red Cell Distribution Width 12.7 % (11.6-14.8) Platelet Count 361 K/UL (150-450) Mean Platelet Volume 5.7 FL (6.5-10.1) L Neutrophils (%) (Auto) 64.0 % (45.0-75.0) Lymphocytes (%) (Auto) 27.1 % (20.0-45.0) Monocytes (%) (Auto) 5.4 % (1.0-10.0) Eosinophils (%) (Auto) 2.8 % (0.0-3.0) Basophils (%) (Auto) 0.7 % (0.0-2.0) Sodium Level 147 mEQ/L (135-145) H Potassium Level 3.7 mEQ/L (3.4-4.9) Chloride Level 109 mEQ/L (98-107) H Carbon Dioxide Level 21 mEQ/L (20-30) Anion Gap 17 (5-15) H Blood Urea Nitrogen 21 mg/dL (7-23) Creatinine 1.2 mg/dL (0.5-0.9) H Estimat Glomerular Filtration Rate mL/min (>60) Glucose Level 103 mg/dL (74-106) Calcium Level 8.7 mg/dL (8.6-10.2) Microbiology Date/Time Source Procedure Growth Status 08/01/16 09:50 Blood Blood Culture - Preliminary NO GROWTH AFTER 24 HOURS Resulted 08/01/16 09:40 Blood Blood Culture - Preliminary NO GROWTH AFTER 24 HOURS Resulted 08/01/16 10:00 Urine,Clean Catch Urine Culture - Final Proteus Mirabilis Complete ALON CLEVELAND Aug 03, 2016 20:59
[2016-08-04] VITALS: BP 132/61
[2016-08-04 04:00] VITALS: BP 143/85
[2016-08-04] MEDS: NovoLOG Insulin Flexpen SUBQ SCH ×2 (06:10→11:30)
[2016-08-04 08:02] VITALS: BP 133/71
[2016-08-04 08:28] LABS: BASOPHILS % (AUTO) 0.3 % (0.0-2.0); EOSINOPHILS % (AUTO) 1.3 % (0.0-3.0); LYMPHOCYTES % (AUTO) 18.6 % (20.0-45.0); MEAN CORPUSCULAR HEMOGLOBIN 29.9 PG (27.0-31.0); MEAN CORPUSCULAR VOLUME 93 FL (80-99); MEAN PLATELET VOLUME 5.8 FL (6.5-10.1); MONOCYTES % (AUTO) 4.2 % (1.0-10.0); NEUTROPHILS % (AUTO) 75.6 % (45.0-75.0); PLATELET COUNT 377 K/UL (150-450); RED BLOOD COUNT 3.97 M/UL (4.20-5.40); RED CELL DISTRIBUTION WIDTH 12.7 % (11.6-14.8); WHITE BLOOD COUNT 10.1 K/UL (4.8-10.8)
[2016-08-04 08:38] LABS: ANION GAP 15 (5-15); CALCIUM 8.5 mg/dL (8.6-10.2); CARBON DIOXIDE 23 mEQ/L (20-30); CHLORIDE 106 mEQ/L (98-107); HEMOLYSIS 1; POTASSIUM 3.9 mEQ/L (3.4-4.9); SODIUM 144 mEQ/L (135-145)
--- NOTE | 2016-08-04 08:41 | General Progress Note ---
Assessment/Plan Problem List: (1) UTI (urinary tract infection) ICD Codes: N39.0 - Urinary tract infection, site not specified SNOMED: 79110458 (2) Encephalopathy ICD Codes: G93.40 - Encephalopathy, unspecified SNOMED: 47144742, 288836721 (3) Altered level of consciousness ICD Codes: R40.4 - Transient alteration of awareness SNOMED: 6382424 (4) Weakness ICD Codes: R53.1 - Weakness SNOMED: 50293529 (5) Hypertensive urgency ICD Codes: I10 - Essential (primary) hypertension SNOMED: 495724793 (6) Tachycardia ICD Codes: R00.0 - Tachycardia, unspecified SNOMED: 4025915 Status: stable, progressing, tolerating diet Assessment/Plan ot pt diet abx cardio f/u dc to snf Subjective Constitutional: Reports: weakness Allergies: Coded Allergies: No Known Allergies (Unverified , 08/20/15) All Systems: reviewed and negative except above Subjective sleepy calm Objective Last 24 Hour Vital Signs Date Time Temp Pulse Resp B/P Pulse Ox O2 Delivery O2 Flow Rate FiO2 08/04/16 08:02 97.3 75 14 133/71 96 Room Air 08/04/16 04:00 96.4 70 20 143/85 99 Room Air 08/04/16 00:00 97.3 64 20 132/61 98 Room Air 08/03/16 20:01 98.2 68 18 129/94 99 Room Air 08/03/16 16:15 96.4 67 20 136/74 97 Room Air 08/03/16 12:00 97.0 67 20 96 08/03/16 10:29 119/57 Intake and Output 08/03/16 08/04/16 18:59 06:59 Intake Total 350 ml 240 ml Output Total 400 ml 800 ml Balance -50 ml -560 ml Intake Oral 350 ml 240 ml Output Urine Total 400 ml 800 ml # Bowel Movements 1 Laboratory Tests 08/04/16 08:05: White Blood Count 10.1, Red Blood Count 3.97L, Hemoglobin 11.9L, Hematocrit 37.0 , Mean Corpuscular Volume 93, Mean Corpuscular Hemoglobin 29.9, Mean Corpuscular Hemoglobin Concent 32.0, Red Cell Distribution Width 12.7, Platelet Count 377, Mean Platelet Volume 5.8L, Neutrophils (%) (Auto) 75.6H, Lymphocytes (%) (Auto) 18.6L, Monocytes (%) (Auto) 4.2, Eosinophils (%) (Auto) 1.3, Basophils (%) (Auto) 0.3, Sodium Level [Pending], Potassium Level [Pending], Chloride Level [Pending], Carbon Dioxide Level [Pending], Blood Urea Nitrogen [ Pending], Creatinine [Pending], Estimat Glomerular Filtration Rate [Pending], Glucose Level [Pending], Calcium Level [Pending] Height (Feet): 5 Weight (Pounds): 120 General Appearance: lethargic EENT: normal ENT inspection Neck: normal alignment Cardiovascular: normal peripheral pulses, normal rate, regular rhythm Respiratory/Chest: chest wall non-tender, lungs clear, normal breath sounds Abdomen: normal bowel sounds, non tender, soft Extremities: normal inspection Edema: no edema noted Arm (L), no edema noted Arm (R), no edema noted Leg (L), no edema noted Leg (R), no edema noted Pedal (L), no edema noted Pedal (R), no edema noted Generalized Neurologic: motor weakness Skin: normal pigmentation, warm/dry SOURAV WEBB Aug 04, 2016 08:41
[2016-08-04] MEDS: Memantine 10mg tab ORAL SCH (09:19)
[2016-08-04] MEDS: Oxybutynin 5mg tab ORAL SCH (09:19)
[2016-08-04 12:02] VITALS: BP 137/91
[2016-08-04] MEDS ORDERED: LEVAQUIN250 M1 ORAL (12:30)
[2016-08-04] MEDS ORDERED: Tubing IV Secondary IV ONE (14:27)
[2016-08-04] MEDS ORDERED: NS 275ml ONE (14:27)
--- NOTE | 2016-08-04 16:17 | Pulmonology Progress Note ---
Assessment/Plan Problems: (1) UTI (urinary tract infection) (2) PPD positive (3) Encephalopathy (4) Weakness (5) Altered level of consciousness (6) Dementia (7) Alzheimer's dementia Assessment/Plan ct reviewed, no pulmonary finding should be treated with INh for 6 month check cultures continue antibiotic tolerating diet. Subjective ROS Limited/Unobtainable: Yes Respiratory: Reports: dyspnea at rest, productive cough, shortness of breath, sputum Allergies: Coded Allergies: No Known Allergies (Unverified , 08/20/15) Objective Last 24 Hour Vital Signs Date Time Temp Pulse Resp B/P Pulse Ox O2 Delivery O2 Flow Rate FiO2 08/04/16 12:02 97.0 85 15 137/91 99 Room Air 08/04/16 09:20 133/71 08/04/16 08:02 97.3 75 14 133/71 96 Room Air 08/04/16 04:00 96.4 70 20 143/85 99 Room Air 08/04/16 00:00 97.3 64 20 132/61 98 Room Air 08/03/16 20:01 98.2 68 18 129/94 99 Room Air Intake and Output 08/03/16 08/04/16 19:00 07:00 Intake Total 350 ml 240 ml Output Total 400 ml 800 ml Balance -50 ml -560 ml Intake Oral 350 ml 240 ml Output Urine Total 400 ml 800 ml # Bowel Movements 1 General Appearance: no acute distress HEENT: normocephalic, atraumatic, PERRL Respiratory/Chest: chest wall non-tender, decreased breath sounds, accessory muscle use, rhonchi Breasts: no masses Cardiovascular: normal peripheral pulses, normal rate, regular rhythm Abdomen: normal bowel sounds, soft, non tender, no organomegaly, non distended Genitourinary: normal external genitalia Extremities: no cyanosis Skin: no rash, no lesions 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, no motor/sensory deficits Laboratory Tests 08/04/16 08:05: White Blood Count 10.1, Red Blood Count 3.97L, Hemoglobin 11.9L, Hematocrit 37.0 , Mean Corpuscular Volume 93, Mean Corpuscular Hemoglobin 29.9, Mean Corpuscular Hemoglobin Concent 32.0, Red Cell Distribution Width 12.7, Platelet Count 377, Mean Platelet Volume 5.8L, Neutrophils (%) (Auto) 75.6H, Lymphocytes (%) (Auto) 18.6L, Monocytes (%) (Auto) 4.2, Eosinophils (%) (Auto) 1.3, Basophils (%) (Auto) 0.3, Sodium Level 144, Potassium Level 3.9, Chloride Level 106, Carbon Dioxide Level 23, Anion Gap 15, Blood Urea Nitrogen 15, Creatinine 1.0H, Estimat Glomerular Filtration Rate , Glucose Level 110H, Calcium Level 8.5L OCTAVIA GORMAN Aug 04, 2016 16:17
--- NOTE | 2016-08-04 18:05 | Infectious Diseases Prog Note ---
Assessment/Plan Problems: (1) UTI (urinary tract infection) Assessment & Plan: urine culture grew pansensitive proteus mirabilis , will switch cefepime to levofloxacin for 5 more days (2) Altered level of consciousness Assessment & Plan: improved, head CT is negative for acute pathology (3) Weakness Assessment & Plan: multifactorial, improved , continue PT/OT Subjective ROS Limited/Unobtainable: Yes Allergies: Coded Allergies: No Known Allergies (Unverified , 08/20/15) Subjective she was doing ok, up in bed, demented, not in distress. Objective Vital Signs Last 24 Hour Vital Signs Date Time Temp Pulse Resp B/P Pulse Ox O2 Delivery O2 Flow Rate FiO2 08/04/16 12:02 97.0 85 15 137/91 99 Room Air 08/04/16 09:20 133/71 08/04/16 08:02 97.3 75 14 133/71 96 Room Air 08/04/16 04:00 96.4 70 20 143/85 99 Room Air 08/04/16 00:00 97.3 64 20 132/61 98 Room Air 08/03/16 20:01 98.2 68 18 129/94 99 Room Air Height (Feet): 5 Weight (Pounds): 120 General Appearance: WD/WN, no acute distress HEENT: normocephalic, atraumatic, anicteric, mucous membranes moist, PERRL Respiratory/Chest: chest wall non-tender, lungs clear, normal breath sounds, no respiratory distress, no accessory muscle use Cardiovascular: normal peripheral pulses, normal rate, regular rhythm, no gallop/murmur, no JVD Abdomen: normal bowel sounds, soft, non tender, no organomegaly, non distended , no mass, no scars Extremities: no cyanosis, no clubbing Skin: no rash, no lesions Laboratory Tests Test 08/04/16 08:05 White Blood Count 10.1 K/UL (4.8-10.8) Red Blood Count 3.97 M/UL (4.20-5.40) L Hemoglobin 11.9 G/DL (12.0-16.0) L Hematocrit 37.0 % (37.0-47.0) Mean Corpuscular Volume 93 FL (80-99) Mean Corpuscular Hemoglobin 29.9 PG (27.0-31.0) Mean Corpuscular Hemoglobin Concent 32.0 G/DL (32.0-36.0) Red Cell Distribution Width 12.7 % (11.6-14.8) Platelet Count 377 K/UL (150-450) Mean Platelet Volume 5.8 FL (6.5-10.1) L Neutrophils (%) (Auto) 75.6 % (45.0-75.0) H Lymphocytes (%) (Auto) 18.6 % (20.0-45.0) L Monocytes (%) (Auto) 4.2 % (1.0-10.0) Eosinophils (%) (Auto) 1.3 % (0.0-3.0) Basophils (%) (Auto) 0.3 % (0.0-2.0) Sodium Level 144 mEQ/L (135-145) Potassium Level 3.9 mEQ/L (3.4-4.9) Chloride Level 106 mEQ/L (98-107) Carbon Dioxide Level 23 mEQ/L (20-30) Anion Gap 15 (5-15) Blood Urea Nitrogen 15 mg/dL (7-23) Creatinine 1.0 mg/dL (0.5-0.9) H Estimat Glomerular Filtration Rate mL/min (>60) Glucose Level 110 mg/dL (74-106) H Calcium Level 8.5 mg/dL (8.6-10.2) L Chai Monte M.D. Aug 04, 2016 18:05
--- NOTE | 2016-08-04 20:40 | Discharge Summary ---
Discharge Summary Hospital Course Date of Admission Aug 01, 2016 at 10:51 Date of Discharge Aug 04, 2016 at 14:28 Admitting Diagnosis generalized weakness, urinary tract infection HPI Ayleen Em is a 89 year old female who was admitted on Aug 01, 2016 at 10: 51 for Generalized Weakness, Urinary Tract Infection Hospital Course [id number] Discharge Discharge Disposition Patient was discharged to SNF/Subacute Facility(03) Discharge Diagnoses: Haley Wright NP Aug 04, 2016 20:40
--- NOTE | 2016-08-05 11:07 | Discharge Summary 2 SIG ---
DATE OF ADMISSION: 08/01/2016 DATE OF DISCHARGE: 08/04/2016 CONSULTANTS: 1. Dilma Seay M.D. 2. Chai Monte M.D. BRIEF HOSPITAL COURSE: The patient is an 89-year-old female, brought to ED for increased weakness. On evaluation, was found to have urinary tract infection, urine WBC too many to count with 3+ leukocyte esterase. Urine culture grew pansensitive Proteus mirabilis. Initially, was given cefepime and was switched to levofloxacin. Altered level of consciousness improved. CT of the head was negative for acute pathology. She was given physical therapy and occupational therapy. Dr. Seay was consulted. The patient had a positive PPD. CT of the chest showed no mass and should be treated with isoniazid for six months. She had a swallow evaluation and was recommended to continue with moist pureed with nectar thick liquids and strict aspiration precaution one-to-one feed. The patient was eventually discharged to [facility]. FINAL DIAGNOSES: 1. Urinary tract infection. 2. Acute metabolic encephalopathy secondary to infection. 3. Hypertensive urgency. 4. Tachycardia. 5. Alzheimer dementia. 6. PPD positive. Recommended treatment with INH. 7. Superficial skin tear on the finger, present on admission. Daniel Ponce D.O. I have been assigned to dictate discharge summary on this account and I was not involved in the patient's management. Haley Wright N.P. DR: RALPH JOB#: [id number] CC:
--- NOTE | 2016-08-06 08:08 | Consultation ---
DATE OF CONSULTATION: 08/03/2016 CARDIOLOGY CONSULTATION: REFERRING PHYSICIAN: Daniel Ponce D.O. REASON FOR CONSULTATION: Management of tachycardia in the patient with altered level of consciousness. HISTORY OF PRESENT ILLNESS: The patient is a very unfortunate 89-year-old female, who was brought in by BLS for increased generalized weakness and altered level of consciousness. It is not quite clear whether the patient has underlying dementia and is not quite clear whether this is worsening of altered level of consciousness. The patient is a very poor historian and this report is prepared by using medical records requesting from the nursing staff. The patient seem to be very confused does not provide any history. In the emergency department, the patient was evaluated and showed tachyarrhythmias. Her blood pressure was also elevated at 154/105 mmHg. Cardiology consultation at request Dr. Daniel Ponce for management of tachycardia. PAST MEDICAL HISTORY: Includes history of hypertension, history of dysphagia, history of dementia and behavioral disturbance, history of encephalopathy, history of seizures, and history of hypothyroidism. MEDICATIONS: List of medication in nursing facility, acetaminophen 650 mg p.o. q.4 hours, aspirin 81 mg oral daily, Lipitor 5 mg oral at nightly, cephalexin 500 mg oral four times a day, Colace 100 mg oral twice daily, Doxycycline 100 mg oral q.12 hours, Vasotec 10 mg oral daily, levaquin 250 mg oral for five days, Synthroid 100 mg oral daily, magnesium hydroxide 30 mL oral p.r.n. for constipation, Namenda 28 mg oral daily, multivitamin one tablet oral daily, and oxybutynin 5 mg oral daily. ALLERGIES: No known drug allergies. SOCIAL HISTORY: Resident of nursing facility. There is no current use of tobacco, alcohol, or illicit drug use. FAMILY HISTORY: No report of premature coronary artery disease in first-degree relatives in the chart. REVIEW OF SYSTEMS: I cannot obtain the 12-system review due to advanced dementia. PHYSICAL EXAMINATION: VITAL SIGNS: Blood pressure on arrival to the emergency department was 164/105, respiration 18, pulse of 110, temperature 97.5 degrees Fahrenheit, and O2 saturation 99% on room air. GENERAL: The patient is a very unfortunate 89-year-old female. HEENT: Atraumatic and normocephalic. Anicteric. Pupils are equal, round, and reactive to light and accommodation. Extraocular muscles intact. NECK: JVP less than 5 cm. No carotid bruits. Carotid upstrokes 2+ bilaterally. CVS: Normal S1, S2. Regular rate and rhythm. No murmurs, gallops, or rubs. Tachycardic. PMI is at fourth intercostal space in the midclavicular line. LUNGS: Clear to auscultation bilaterally. ABDOMEN: Soft, nontender, and nondistended. No hepatosplenomegaly. Positive bowel sounds. EXTREMITIES: There is a right foot plantar contraction. No edema, clubbing, or cyanosis. LABORATORY FINDINGS: WBC 13.1, hemoglobin of 13.4, hematocrit of 40.6, and platelet count 371,000. Sodium was 141, potassium 3.9, chloride 100, bicarbonate 23, BUN 20, creatinine 1.3, and glucose is 107. Calcium is 9.2. Troponin I was less than 0.3. ProBNP was 1197. Lipase 136. Triglyceride 125. Total cholesterol 129, LDL 82, HDL 22, and TSH . CT of chest showed no mass chest pleural parenchymal scarring in the left base of the lungs and some volume loss. Arterial vascular disease in association of renal calculi bilaterally . The 12-lead electrocardiogram shows sinus rhythm at a rate of 97, premature atrial complexes, otherwise no acute cardiopulmonary disease. ASSESSMENT AND PLAN: The patient is a very unfortunate 89-year-old female, seen in Cardiology consultation at request of Dr. Ponce. 1. Sinus tachycardia most likely from urinary tract infection. She is on antibiotic cefepime recommended by Infectious Disease. Continue recommendation of Infectious Disease specialist. I would consider hydration in this patient. altered level of consciousness also due to this condition. 2. Hypertension. on it in view of this acute event. Once the patient's infection is stable, we can resume blood pressure medications in the facility as the patient was on Vasotec. 3. Dementia. 4. Hypothyroidism. Continue with thyroid medication. I would like to thank, Dr. Ponce for allowing me to participate in care of this patient. Ubaldo Trujillo M.D. DR: Dottie JOB#: [id number] CC:
--- NOTE | 2016-08-08 14:56 | Diagnostic Imaging Report ---
Indications: Chest pain Technique: Portable AP chest Findings: Comparison: 08/20 16 Left lung volume loss and basal parenchymal versus pleural opacity persist unchanged. Cardiac silhouette remains partially obscured. Vasculature remains within normal limits. Right lung and pleura remain clear. Aortic arch calcification again noted. IMPRESSION: No evidence of acute disease, unchanged Stable chronic changes as described
--- NOTE | 2016-08-10 21:17 | Progress Note ---
DATE: 08/04/2016 SUBJECTIVE: This is an 89-year-old female patient. She is confused and disorganized. Poor cognition secondary to the progression of medical illness. PLAN: Continue treatment with Namenda 10 mg daily to prevent any further decline in her cognition. Chart reviewed and discussed with staff. Seen and assessed at bedside. Cira Dorado M.D. DR: JESSE JOB#: [id number] CC:
--- NOTE | 2016-08-10 22:18 | Consultation ---
DATE OF CONSULTATION: 08/03/2016 INITIAL PSYCHIATRIC CONSULTATION HISTORY OF PRESENT ILLNESS: The patient is a female patient, who is admitted to [facility]. She had a urinary tract infection, but admitting that her cognition has declined below baseline and she had some altered mental status and confusion, so there was a psychiatric consultation. The staff worked with this patient to improve her cognition closer to her baseline or at least to prevent any further decline in her cognition. MEDICAL HISTORY: She has urinary tract infection, hypertensive urgency, generalized weakness, and tachycardia. She also is PPD positive. She also has hypothyroidism. PAST PSYCHIATRIC HISTORY: Paranoid schizophrenia, rule out dementia with psychosis. SOCIAL HISTORY: She lives in a long term. Financially supported by [employer] and [employer]. ALLERGIES: No known drug allergies. SUBSTANCE ABUSE HISTORY: Denies drug or alcohol use. MENTAL STATUS EXAMINATION: This is an 89-year-old female with psychomotor retardation. Mood is depressed. Affect guarded and restricted. Thought process is disorganized and illogical. No signs of any suicidal or homicidal thoughts. Insight and judgment is poor. PLAN: I am going to continue to treat this patient with a psychiatric medication regimen consisting of Namenda 20 mg daily to prevent any further decline in her cognition. Chart was reviewed and discussed with staff. She was seen and assessed in the room. I would like to thank, Dr. Daniel Ponce, for this interesting consultation. Cira Dorado M.D. DR: TL JOB#: [id number] CC:
--- NOTE | 2016-08-12 17:28 | Diagnostic Imaging Report ---
APPROVED REPORT CPT Code: 34468 Present Symptoms Comments: HTN Pain BILATERAL: Imaging reveals a patent deep venous system bilaterally. There is no evidence of thrombus within the femoral, popliteal or tibial segments. The greater saphenous veins are also within normal limits. Doppler indicates normal spontaneous flow within these segments.
== END 2016-08-04 14:28 | DRG 689 ==
LOC: EDBD 09:33 → EMR 10:23 → EDBEDREQ 10:48 → 4E 10:51 → EDBEDREQ 12:37 → 4E 14:58
DX: N39.0 Urinary tract infection, site not specified (principal); G93.41 Metabolic encephalopathy; B96.4 Proteus (mirabilis) (morganii) as the cause of diseases classified elsewhere; G30.9 Alzheimer's disease, unspecified; F02.80 Dementia in other diseases classified elsewhere, unspecified severity, without behavioral disturbance, psychotic disturbance, mood disturbance, and anxiety; G40.909 Epilepsy, unspecified, not intractable, without status epilepticus; E78.00 Pure hypercholesterolemia, unspecified; I16.0 Hypertensive urgency; R00.0 Tachycardia, unspecified; R76.11 Nonspecific reaction to tuberculin skin test without active tuberculosis; E03.9 Hypothyroidism, unspecified; R13.10 Dysphagia, unspecified
CPT/HCPCS: 36415; 70450; 71010; 71260; 80048; 80053; 80061; 81003; 82550; 82553; 82962; 83605; 83690; 83880; 84443; 84484; 85025; 87040; 87081; 87086; 87181; 93005; 93970; 97803; J1815

== ENCOUNTER 2016-11-29 22:02 | Emergency (ER) | payer MEDICARE, MEDICAID ==
[~2016-11-29] VITALS: Ht 160 cm; Wt 49.9 kg
[~2016-11-29 22:02] MED LIST changes: +DITROPAN XL5 MG ORAL; +DOCUSATE SODIU100 MG ORAL; +LEVAQUIN250 M1 ORAL; +MILK OF MA2400 MG/10 ORAL
--- NOTE | 2016-11-30 00:06 | Emergency Room Report ---
History of Present Illness General Chief Complaint: Multiple Trauma/Fall Source: Patient, Medical Record Present Illness HPI 89 YO F sent from SNF for alleged fall "on pad" accidentally at SNF. Patient's "face was all red" initially. Patient on ASA per review of EMR from [facility]. SNF deny any other injuries. Patient states "I'm fine!" Has no complaints of pain. Allergies: Coded Allergies: No Known Allergies (Unverified , 08/20/15) Patient History Past Medical History: see triage record, old chart reviewed Past Surgical History: none Pertinent Family History: none Social History: Denies: alcohol use, drug use, smoking Last Menstrual Period: n/a Now: No Immunizations: UTD Reviewed Nursing Documentation: PMH: Agreed, PSxH: Agreed Nursing Documentation-PMH Past Medical History: No History, Except For Hx Cardiac Problems: Yes Hx Hypertension: Yes Hx Diabetes: Yes Hx Cancer: No History Of Psychiatric Problem: Yes - Dementia, Schizophrenia Hx Neurological Problems: Yes Hx Dementia: Yes Hx Alzheimer's Disease: Yes Hx Seizures: Yes Hx Dysphasia: Yes Hx Weakness: Yes Review of Systems All Other Systems: negative except mentioned in HPI Physical Exam Vital Signs Date Time Temp Pulse Resp B/P Pulse Ox O2 Delivery O2 Flow Rate FiO2 11/29/16 21:56 97.7 63 16 139/58 99 Sp02 EP Interpretation: reviewed, normal General Appearance: normal inspection, well appearing, no apparent distress, alert, GCS 15, non-toxic Head: normocephalic, atraumatic Eyes: bilateral eye EOMI, bilateral eye PERRL ENT: normal ENT inspection, hearing grossly normal, normal voice Neck: normal inspection, full range of motion, supple, no bony tend Respiratory: normal inspection, lungs clear, normal breath sounds, no respiratory distress, no retraction, no wheezing Cardiovascular #1: regular rate, rhythm, no edema Gastrointestinal: normal inspection, normal bowel sounds, non tender, soft, no guarding, no hernia Genitourinary: no CVA tenderness Musculoskeletal: normal inspection, back normal, normal range of motion, Erica' s Sign negative Neurologic: normal inspection, alert, oriented x3, responsive, a auxiliary III-XII nml as tested, speech normal Psychiatric: normal inspection, judgement/insight normal, mood/affect normal Skin: normal inspection, normal color, no rash Lymphatic: normal inspection Medical Decision Making Diagnostic Impression: Primary Impression: Fall Qualified Codes: W19.XXXA - Unspecified fall, initial encounter ER Course Accidental fall at SNF. ?Alleged head injury. No obvious signs of trauma here No focal neuro deficits No distracting injury CT head negative for acute trauma Patient reamins asymptomatic in ED DC back to [facility] Last Vital Signs Date Time Temp Pulse Resp B/P Pulse Ox O2 Delivery O2 Flow Rate FiO2 11/29/16 21:56 97.7 63 16 139/58 99 Status: improved Disposition: [facility] JIGNA BRUNSON M.D. November 30, 2016 00:05
[2016-11-30 00:47] VITALS: BP 119/89
[2016-11-30 02:00] VITALS: BP 106/69
--- NOTE | 2016-11-30 12:18 | Diagnostic Imaging Report ---
Indication: Headache Technique: Contiguous 5 mm thick transaxial imaging of the head obtained in a Siemens Sensation [address] scanner. Soft tissue and bone windows generated. Total Dose length Product (DLP): [address] Dose Index Volume (CTDIvol): 70.38 mGy Comparison: 08/01/16 Findings: There is moderate prominence of the ventricles, basal cisterns, and cerebral sulci consistent with atrophy. Moderate, nonspecific, white matter hypoattenuation is noted throughout the brain consistent with chronic small vessel disease. There is no midline shift, edema, acute hemorrhage, mass effect, or abnormal extra-axial fluid collections. Bones and extra osseous soft tissues are unremarkable. Impression: No acute intracranial bleed, mass effect or edema. Moderate atrophy of the brain. Evidence of chronic small vessel disease involving white matter tracts. The CT scanner at [facility] is accredited by the [employer] and the scans are performed using dose optimization techniques as appropriate to a performed exam including Automatic Exposure control.
== END 2016-11-30 02:30 ==
LOC: EDBD 22:02 → EMR 22:18
DX: S09.93XA Unspecified injury of face, initial encounter (principal); W19.XXXA Unspecified fall, initial encounter; Y93.9 Activity, unspecified; Y92.129 Unspecified place in nursing home as the place of occurrence of the external cause; Y99.9 Unspecified external cause status; Z79.01 Long term (current) use of anticoagulants; Z86.79 Personal history of other diseases of the circulatory system; I10 Essential (primary) hypertension; E11.9 Type 2 diabetes mellitus without complications; F20.9 Schizophrenia, unspecified; G30.9 Alzheimer's disease, unspecified; F02.80 Dementia in other diseases classified elsewhere, unspecified severity, without behavioral disturbance, psychotic disturbance, mood disturbance, and anxiety; R47.02 Dysphasia; R53.1 Weakness; Z86.69 Personal history of other diseases of the nervous system and sense organs
CPT/HCPCS: 70450; 99284

== ENCOUNTER 2017-01-26 12:49 | Inpatient (IN) | payer MEDICARE, MEDICAID ==
[~2017-01-26] VITALS: Ht 162.6 cm; Wt 63.5 kg
[2017-01-26 13:22] LABS: ABG PCO2 27.9 mmHg (35.0-45.0)
[2017-01-26 13:23] LABS: ABG ALLEN TEST POSITIVE; ABG BASE EXCESS -4.2
[2017-01-26] MEDS ORDERED: Acetaminophen 650 MG SUPP RECTAL ONE ×2 (13:32→13:45)
[2017-01-26 13:35] LABS: MEAN CORPUSCULAR HEMOGLOBIN 30.4 PG (27.0-31.0); MEAN CORPUSCULAR HGB CONC 31.3 G/DL (32.0-36.0); MEAN CORPUSCULAR VOLUME 97 FL (80-99); PLATELET COUNT 255 K/UL (150-450); RED BLOOD COUNT 4.13 M/UL (4.20-5.40); RED CELL DISTRIBUTION WIDTH 12.5 % (11.6-14.8); WHITE BLOOD COUNT 10.2 K/UL (4.8-10.8)
[2017-01-26 13:36] LABS: MEAN PLATELET VOLUME 5.7 FL (6.5-10.1)
[2017-01-26 13:48] LABS: TROPONIN I < 0.30 ng/mL (<=0.30)
[2017-01-26 13:51] LABS: REFLEX LACTIC ACID YES OR NO YES
[2017-01-26 13:52] LABS: ALANINE AMINOTRANSFERASE 25 U/L (3-33); ALBUMIN/GLOBULIN RATIO 0.7 (1.0-2.7); ANION GAP 18 (5-15); ASPARTATE AMINO TRANSFERASE 30 U/L (5-40); BAND NEUTROPHILS % (MANUAL) 2 % (0-8); BASOPHILS % (MANUAL) 0 % (0-2); CALCIUM 8.9 mg/dL (8.6-10.2); CARBON DIOXIDE 19 mEQ/L (20-30); CHLORIDE 98 mEQ/L (98-107); CREATININE 2.2 mg/dL (0.5-0.9); EOSINOPHILS % (MANUAL) 0 % (0-3); HEMOLYSIS 75; HYPOCHROMASIA 1+; LYMPHOCYTES % (MANUAL) 4 % (20-45); NEUTROPHILS % (MANUAL) 90 % (45-75); PLATELET ESTIMATE ADEQUATE; PLATELET MORPHOLOGY NORMAL; SODIUM 135 mEQ/L (135-145); TOTAL CELLS COUNTED 100; TOTAL PROTEIN 7.3 g/dL (6.6-8.7)
[2017-01-26 14:03] LABS: CKMB < 1.5 ng/mL (< 3.8)
[2017-01-26 14:05] LABS: APPEARANCE,URINE CLOUDY; KETONES,URINE NEGATIVE (NEGATIVE); LEUKOCYTE ESTERASE ,URINE 3+ (NEGATIVE); NITRITE,URINE NEGATIVE (NEGATIVE); PH,URINE 8 (4.5-8.0); PROTEIN,URINE 4+ (NEGATIVE); UROBILINOGEN,URINE NORMAL MG/DL (0.0-1.0)
[2017-01-26 14:06] LABS: RBC,URINE 15-20 /HPF (0 - 2); SQUAMOUS EPITHELIAL CELL,UR FEW /LPF (NONE/OCC); WBC,URINE 60-80 /HPF (0 - 2)
[2017-01-26 14:07] LABS: BACTERIA,URINE MODERATE /HPF
[2017-01-26] MEDS ORDERED: NS 1000ml 1,900 ML IVLG ONE (14:15)
[2017-01-26] MEDS ORDERED: LORazepam Inj 2mg/ml 1ml IM ONE (14:30)
[2017-01-26] MEDS ORDERED: Promethazine/Codeine 5ml UD ORAL PRN (14:45)
[2017-01-26] MEDS ORDERED: DuoNeb 0.5-3(2.5)mg/3ml neb HHN PRN (14:45)
[2017-01-26] MEDS ORDERED: Miralax 17gm pkt ORAL PRN (14:45)
[2017-01-26] MEDS ORDERED: Nitroglycerin Subl 0.4mg tab (Bottle Of 25) SL PRN (14:45)
[2017-01-26] MEDS ORDERED: Mylanta II UD 30ml ORAL PRN (14:45)
[2017-01-26 15:04] VITALS: BP 100/53
[2017-01-26] MEDS ORDERED: NAMENDA10 MG ORAL (15:05)
[2017-01-26] MEDS ORDERED: ATORVASTATIN CA20 MG ORAL (15:05)
--- NOTE | 2017-01-26 15:08 | Emergency Room Report ---
History of Present Illness General Chief Complaint: Generalized Weakness Source: Medical Record, EMS Present Illness HPI 89-year-old female presents to ED for evaluation. Per EMS patient is here for evaluation of shortness of breath. Started today at the longterm. O2 saturations were low. Upon arrival patient O2 saturations are improved. Patient showing no signs of distress. Patient has dementia and is unable to provide any history at this time. No chest pain. No other aggravating or relieving factors. Denies any other associated symptoms Allergies: Coded Allergies: No Known Allergies (Unverified , 08/20/15) Patient History Past Medical History: DM, HTN, dementia Pertinent Family History: none Social History: Denies: alcohol use, drug use, smoking Now: No Immunizations: UTD Reviewed Nursing Documentation: PMH: Agreed, PSxH: Agreed Nursing Documentation-PMH Hx Cardiac Problems: Yes Hx Hypertension: Yes Hx Diabetes: Yes Hx Cancer: No Hx Neurological Problems: Yes Hx Dementia: Yes Hx Alzheimer's Disease: Yes Hx Seizures: Yes Hx Dysphasia: Yes Hx Weakness: Yes Review of Systems All Other Systems: negative except mentioned in HPI Physical Exam Vital Signs Date Time Temp Pulse Resp B/P Pulse Ox O2 Delivery O2 Flow Rate FiO2 01/26/17 12:47 98.2 62 16 129/90 93 Room Air Sp02 EP Interpretation: reviewed, normal General Appearance: no apparent distress, alert, GCS 15, non-toxic Head: normocephalic, atraumatic Eyes: bilateral eye PERRL, bilateral eye normal inspection ENT: hearing grossly normal, normal pharynx, no angioedema, normal voice Neck: full range of motion, supple/symm/no masses Respiratory: chest non-tender, lungs clear, normal breath sounds, speaking full sentences Cardiovascular #1: regular rate, rhythm, no edema Cardiovascular #2: 2+ carotid (R), 2+ carotid (L), 2+ radial (R), 2+ radial (L) , 2+ dorsalis pedis (R), 2+ dorsalis pedis (L) Gastrointestinal: normal bowel sounds, non tender, soft, non-distended, no guarding, no rebound Rectal: deferred Genitourinary: normal inspection, no CVA tenderness Musculoskeletal: back normal, gait/station normal, normal range of motion, non- tender Neurologic: alert, motor strength/tone normal, sensory intact, other - dementia Psychiatric: other - dementia Reflexes: 3+ bicep (R), 3+ bicep (L), 3+ tricep (R), 3+ tricep (L), 3+ knee (R) , 3+ knee (L) Skin: normal color, no rash, warm/dry, well hydrated Lymphatic: no adenopathy Medical Decision Making Diagnostic Impression: Primary Impression: UTI (urinary tract infection) Qualified Codes: N39.0 - Urinary tract infection, site not specified Additional Impressions: Hypoxia Severe sepsis Renal insufficiency ER Course Hospital Course 89-year-old female presenting to ED with SOB, hypoxia Differential diagnoses include: Pneumonia, UTI, sepsis, dehydration, TN/ unstable angina Clinical course Patient placed on stretcher. On manager monitoring. After initial history and physical, I ordered labs, IV fluids, EKG, chest x-ray, blood cultures, UA. Labs - BUN/Cr elevated, noted leukocytosis, troponins negative, lactate elevated , UA grossly positive for UTI ABG shows no significant hypoxia EKG - sinus tachycardia, no ischemic changes interpreted by me CXR - no acute process Given rectal Tylenol for fever Abx given. Given 30 mL per KG fluid bolus. Case discussed with Dr Webb and they agreed to admit patient to their service for further care and support I feel this is a highly complex case requiring extensive working including EKG/ Rhythm strip, Xray/CT/US, Blood/urine lab work, repeat exams while in ED, and administration of strong opiates/narcotics for pain control, admission to hospital or close patient follow up. Diagnosis - UTI, hypoxia, severe sepsis, renal insufficency Patient admitted to telemetry in serious condition Labs Test 01/26/17 13:15 01/26/17 13:20 01/26/17 13:40 01/26/17 14:25 Arterial Blood pH 7.440 (7.350-7.450) Arterial Blood Partial Pressure CO2 27.9 mmHg (35.0-45.0) Arterial Blood Partial Pressure O2 78.3 mmHg (75.0-100.0) Arterial Blood HCO3 18.6 mmol/L (22.0-26.0) Arterial Blood Oxygen Saturation 96.0 % (92.0-98.0) Arterial Blood Base Excess -4.2 Trell Test Positive White Blood Count 10.2 K/UL (4.8-10.8) Red Blood Count 4.13 M/UL (4.20-5.40) Hemoglobin 12.6 G/DL (12.0-16.0) Hematocrit 40.1 % (37.0-47.0) Mean Corpuscular Volume 97 FL (80-99) Mean Corpuscular Hemoglobin 30.4 PG (27.0-31.0) Mean Corpuscular Hemoglobin Concent 31.3 G/DL (32.0-36.0) Red Cell Distribution Width 12.5 % (11.6-14.8) Platelet Count 255 K/UL (150-450) Mean Platelet Volume 5.7 FL (6.5-10.1) Neutrophils (%) (Auto) % (45.0-75.0) Lymphocytes (%) (Auto) % (20.0-45.0) Monocytes (%) (Auto) % (1.0-10.0) Eosinophils (%) (Auto) % (0.0-3.0) Basophils (%) (Auto) % (0.0-2.0) Differential Total Cells Counted 100 Neutrophils % (Manual) 90 % (45-75) Lymphocytes % (Manual) 4 % (20-45) Monocytes % (Manual) 4 % (1-10) Eosinophils % (Manual) 0 % (0-3) Basophils % (Manual) 0 % (0-2) Band Neutrophils 2 % (0-8) Platelet Estimate Adequate Platelet Morphology Normal Hypochromasia 1+ Sodium Level 135 mEQ/L (135-145) Potassium Level 5.0 mEQ/L (3.4-4.9) Chloride Level 98 mEQ/L (98-107) Carbon Dioxide Level 19 mEQ/L (20-30) Anion Gap 18 (5-15) Blood Urea Nitrogen 42 mg/dL (7-23) Creatinine 2.2 mg/dL (0.5-0.9) Estimat Glomerular Filtration Rate mL/min (>60) Glucose Level 202 mg/dL (74-106) Lactic Acid Level 4.10 mmol/L (0.66-2.22) Calcium Level 8.9 mg/dL (8.6-10.2) Total Bilirubin 0.4 mg/dL (0.0-1.2) Aspartate Amino Transf (AST/SGOT) 30 U/L (5-40) Alanine Aminotransferase (ALT/SGPT) 25 U/L (3-33) Alkaline Phosphatase 66 U/L (35-104) Total Creatine Kinase 73 U/L (26-140) Creatine Kinase MB < 1.5 ng/mL (< 3.8) Creatine Kinase MB Relative Index Troponin I < 0.30 ng/mL (<=0.30) Pro-B-Type Natriuretic Peptide 608 pg/mL (0-450) Total Protein 7.3 g/dL (6.6-8.7) Albumin 3.2 g/dL (3.5-5.2) Globulin 4.1 g/dL Albumin/Globulin Ratio 0.7 (1.0-2.7) Urine Color Pale yellow Urine Appearance Cloudy Urine pH 8 (4.5-8.0) Urine Specific [place] 1.010 (1.005-1.035) Urine Protein 4+ (NEGATIVE) Urine Glucose (UA) Negative (NEGATIVE) Urine Ketones Negative (NEGATIVE) Urine Occult Blood 5+ (NEGATIVE) Urine Nitrite Negative (NEGATIVE) Urine Bilirubin Negative (NEGATIVE) Urine Urobilinogen Normal MG/DL (0.0-1.0) Urine Leukocyte Esterase 3+ (NEGATIVE) Urine RBC 15-20 /HPF (0 - 2) Urine WBC 60-80 /HPF (0 - 2) Urine Squamous Epithelial Cells Few /LPF (NONE/OCC) Urine Bacteria Moderate /HPF (NONE) EKG Diagnostic Results Rate: tachycardiac Rhythm: NSR ST Segments: other - PVCs ASA given to the pt in ED: No Rhythm Strip Diag. Results EP Interpretation: yes Rhythm: NSR, no ectopy Chest X-Ray Diagnostic Results Chest X-Ray Diagnostic Results : Chest X-Ray Ordered: Yes # of Views/Limited/Complete: 1 View Indication: Shortness of Breath EP Interpretation: Yes Interpretation: no consolidation, no effusion, no pneumothorax, no acute cardiopulmonary disease Impression: No acute disease Interpreting ER Provider: Waylon Larson MD Last Vital Signs Date Time Temp Pulse Resp B/P Pulse Ox O2 Delivery O2 Flow Rate FiO2 01/26/17 12:47 98.2 62 16 129/90 93 Room Air Status: improved Disposition: ADMITTED INPATIENT Condition: Serious Referrals: SOURAV WEBB (PCP) WAYLON LARSON M.D. Jan 26, 2017 15:08
--- NOTE | 2017-01-26 15:09 | Diagnostic Imaging Report ---
Indication: Dyspnea Comparison: 08/01/16 A single view chest radiograph was obtained. Findings: Aorta is moderately calcified. Heart size is normal. The bones are osteopenic. The lungs are clear. Impression: No acute disease
--- NOTE | 2017-01-26 15:30 | Consultation ---
Consult Note Consult Note asked to evaluate for renal failure- 89-year-old female presents to ED for evaluation. Per EMS patient is here for evaluation of shortness of breath. Started today at the retirement. O2 saturations were low. Upon arrival patient O2 saturations are improved. Patient showing no signs of distress. Patient has dementia and is unable to provide any history at this time. No chest pain. No other aggravating or relieving factors. Denies any other associated symptoms Past Medical History: DM, HTN, dementia Hx Cardiac Problems: Yes Hx Hypertension: Yes Hx Diabetes: Yes Hx Neurological Problems: Yes Hx Dementia: Yes Hx Alzheimer's Disease: Yes Hx Seizures: Yes Hx Dysphasia: Yes Hx Weakness: Yes patient examined in Er room 1 non historian data reviewed Assessment/Plan Renal failure- Appears pre renal and dehydration - UTI (urinary tract infection) - h/o PPD positive - Encephalopathy - Weakness -Dementia -HypoThyroidism -HTN and DM Plan: Hydrate- Cortés- Antibiotics- Monitor renal parameters BS and BP Avoid Nephrotoxics KODI CAMARA Jan 26, 2017 15:30
[2017-01-26 16:09] VITALS: BP 100/60
--- NOTE | 2017-01-26 16:10 | Infectious Diseases Prog Note ---
Assessment/Plan Problems: (1) Sepsis Assessment & Plan: suspect due to UTI, will start cefepime empirically , pending urine culture (2) UTI (urinary tract infection) Assessment & Plan: on cefepime, will send urine culture (3) SOB (shortness of breath) Assessment & Plan: rule out PE, recommend V/Q scan, and venous doppler (4) Renal insufficiency Assessment & Plan: suspect dehydration, continue IVF, avoid nephrotoxic meds, renal is consulted (5) Hypoxia Assessment & Plan: continue oxygen, recommend CT angio of the lungs (6) Diabetes mellitus Assessment & Plan: recommend tight glycemic control to keep blood glucose between 80-120 Subjective Allergies: Coded Allergies: No Known Allergies (Unverified , 08/20/15) Objective Vital Signs Last 24 Hour Vital Signs Date Time Temp Pulse Resp B/P Pulse Ox O2 Delivery O2 Flow Rate FiO2 01/26/17 15:04 99.2 100 19 100/53 98 Room Air 01/26/17 12:47 98.2 62 16 129/90 93 Room Air Height (Feet): 5 Height (Inches): 4.00 Weight (Pounds): 140 Laboratory Tests Test 01/26/17 13:15 01/26/17 13:20 01/26/17 13:40 01/26/17 14:25 Arterial Blood pH 7.440 (7.350-7.450) Arterial Blood Partial Pressure CO2 27.9 mmHg (35.0-45.0) L Arterial Blood Partial Pressure O2 78.3 mmHg (75.0-100.0) Arterial Blood HCO3 18.6 mmol/L (22.0-26.0) L Arterial Blood Oxygen Saturation 96.0 % (92.0-98.0) Arterial Blood Base Excess -4.2 Trell Test Positive White Blood Count 10.2 K/UL (4.8-10.8) Red Blood Count 4.13 M/UL (4.20-5.40) L Hemoglobin 12.6 G/DL (12.0-16.0) Hematocrit 40.1 % (37.0-47.0) Mean Corpuscular Volume 97 FL (80-99) Mean Corpuscular Hemoglobin 30.4 PG (27.0-31.0) Mean Corpuscular Hemoglobin Concent 31.3 G/DL (32.0-36.0) L Red Cell Distribution Width 12.5 % (11.6-14.8) Platelet Count 255 K/UL (150-450) Mean Platelet Volume 5.7 FL (6.5-10.1) L Neutrophils (%) (Auto) % (45.0-75.0) Lymphocytes (%) (Auto) % (20.0-45.0) Monocytes (%) (Auto) % (1.0-10.0) Eosinophils (%) (Auto) % (0.0-3.0) Basophils (%) (Auto) % (0.0-2.0) Differential Total Cells Counted 100 Neutrophils % (Manual) 90 % (45-75) H Lymphocytes % (Manual) 4 % (20-45) L Monocytes % (Manual) 4 % (1-10) Eosinophils % (Manual) 0 % (0-3) Basophils % (Manual) 0 % (0-2) Band Neutrophils 2 % (0-8) Platelet Estimate Adequate Platelet Morphology Normal Hypochromasia 1+ Sodium Level 135 mEQ/L (135-145) Potassium Level 5.0 mEQ/L (3.4-4.9) H Chloride Level 98 mEQ/L (98-107) Carbon Dioxide Level 19 mEQ/L (20-30) L Anion Gap 18 (5-15) H Blood Urea Nitrogen 42 mg/dL (7-23) H Creatinine 2.2 mg/dL (0.5-0.9) H Estimat Glomerular Filtration Rate mL/min (>60) Glucose Level 202 mg/dL (74-106) H Lactic Acid Level 4.10 mmol/L (0.66-2.22) H 3.10 mmol/L (0.66-2.22) H Calcium Level 8.9 mg/dL (8.6-10.2) Total Bilirubin 0.4 mg/dL (0.0-1.2) Aspartate Amino Transf (AST/SGOT) 30 U/L (5-40) Alanine Aminotransferase (ALT/SGPT) 25 U/L (3-33) Alkaline Phosphatase 66 U/L (35-104) Total Creatine Kinase 73 U/L (26-140) Creatine Kinase MB < 1.5 ng/mL (< 3.8) Creatine Kinase MB Relative Index Troponin I < 0.30 ng/mL (<=0.30) Pro-B-Type Natriuretic Peptide 608 pg/mL (0-450) H Total Protein 7.3 g/dL (6.6-8.7) Albumin 3.2 g/dL (3.5-5.2) L Globulin 4.1 g/dL Albumin/Globulin Ratio 0.7 (1.0-2.7) L Urine Color Pale yellow Urine Appearance Cloudy Urine pH 8 (4.5-8.0) Urine Specific [place] 1.010 (1.005-1.035) Urine Protein 4+ (NEGATIVE) H Urine Glucose (UA) Negative (NEGATIVE) Urine Ketones Negative (NEGATIVE) Urine Occult Blood 5+ (NEGATIVE) H Urine Nitrite Negative (NEGATIVE) Urine Bilirubin Negative (NEGATIVE) Urine Urobilinogen Normal MG/DL (0.0-1.0) Urine Leukocyte Esterase 3+ (NEGATIVE) H Urine RBC 15-20 /HPF (0 - 2) H Urine WBC 60-80 /HPF (0 - 2) H Urine Squamous Epithelial Cells Few /LPF (NONE/OCC) Urine Bacteria Moderate /HPF (NONE) H Current Medications Medications (Trade) Dose Ordered Sig/Odalis Route PRN Reason Start Time Stop Time Status Last Admin Dose Admin Acetaminophen (Tylenol) 650 mg Q4H PRN ORAL T>100.5 01/26/17 14:45 02/25/17 14:44 Albuterol/ Ipratropium 3 ml 3 ml Q4H PRN HHN Shortness of Breath 01/26/17 14:45 01/31/17 14:44 Cefepime HCl/ Dextrose (Maxipime/D5W) 55 ml @ 110 mls/hr EVERY 12 HOURS IV 01/26/17 21:00 02/02/17 20:59 UNV Heparin Sodium (Porcine) (Heparin 5000 units/ml) 5,000 units EVERY 12 HOURS SUBQ 01/26/17 21:00 02/25/17 20:59 Levothyroxine Sodium (Synthroid) 100 mcg ACBREAKFAST ORAL 01/27/17 06:30 02/26/17 06:29 Memantine (Namenda) 10 mg Q12HR ORAL 01/27/17 09:00 02/26/17 08:59 Nitroglycerin (Ntg) 0.4 mg Q5M PRN SL Prn Chest Pain 01/26/17 14:45 02/25/17 14:44 Ondansetron HCl (Zofran) 4 mg Q6H PRN IVP Nausea & Vomiting 01/26/17 14:45 02/25/17 14:44 Polyethylene Glycol (Miralax) 17 gm DAILYPRN PRN ORAL Constipation 01/26/17 14:45 02/25/17 14:44 Promethazine HCl/ Codeine (Phenergan with Codeine) 5 ml Q4H PRN ORAL For Cough 01/26/17 14:45 02/25/17 14:44 Sodium Chloride (Sodium Chloride 1000ml bag) 1,000 ml @ 75 mls/hr [id number] IV 01/26/17 16:00 02/25/17 15:59 Temazepam (Restoril) 15 mg HSPRN PRN ORAL Insomnia 01/26/17 21:00 02/02/17 20:59 Vancomycin HCl 1 ea 1 ea DAILY PRN MISC Per rx protocol 01/26/17 14:45 02/25/17 14:44 Chai Matos M.D. Jan 26, 2017 16:10
[2017-01-26 16:20] VITALS: BP 112/46
[2017-01-26 17:11] VITALS: BP 95/56
[2017-01-26] MEDS ORDERED: Cefepime HCl 1 GM in D5W 55 ML IV ONE (18:30)
--- NOTE | 2017-01-26 18:44 | Consultation ---
History of Present Illness General Date patient seen: Jan 26, 2017 Chief Complaint: Generalized Weakness Referring physician: Kris Beard Reason for Consultation: Dyspnea Present Illness HPI 89-year-old female with hx of dementia, HTN, correction resident presents to ED for evaluation of shortness of breath. Started today at the correction. O2 saturations were low. Upon arrival patient O2 saturations are improved. Patient showing no signs of distress. She was diagnosed to have sepsis and ATN and admitted for further evaluation. Allergies: Coded Allergies: No Known Allergies (Unverified , 08/20/15) Medication History Scheduled Acetaminophen* (Acetaminophen 325MG Tablet*), 650 MG ORAL Q4H, (Reported) Aspirin (Aspirin EC), 81 MG ORAL DAILY, (Reported) Atorvastatin Calcium* (Lipitor*), 5 MG ORAL BEDTIME, (Reported) Enalapril Maleate* (Vasotec*), 10 MG ORAL DAILY, (Reported) Levothyroxine Sodium* (Synthroid*), 100 MCG ORAL DAILY, (Reported) Memantine Hcl* (Namenda*), 10 MG ORAL DAILY, (Reported) Multivitamin with Minerals (Multivitamins with Minerals), 1 TAB ORAL DAILY, ( Reported) Oxybutynin Chloride (Ditropan Xl), 5 MG ORAL DAILY, (Reported) Scheduled PRN Magnesium Hydroxide* (Milk Of Magnesia*), 30 ML ORAL DAILY PRN for Constipation, (Reported) Discontinued Medications Cephalexin (Cephalexin), 500 MG ORAL FOUR TIMES A DAY Discontinued Reason: Therapy completed Docusate Sodium* (Docusate Sodium*), 100 MG ORAL TWICE A DAY, (Reported) Discontinued Reason: Medication dose changed Doxycycline Hyclate (Doxycycline Hyclate), 100 MG ORAL EVERY 12 HOURS Discontinued Reason: Medication dose changed Levofloxacin* (Levaquin*), 250 MG ORAL DAILY, (Reported) Discontinued Reason: Therapy completed Patient History Healthcare decision maker N Resuscitation status Full Code Advanced Directive on File Past Medical/Surgical History Past Medical/Surgical History: (1) Dementia (2) Diabetes mellitus (3) Alzheimer's dementia Review of Systems All Other Systems: negative except mentioned in HPI Physical Exam General Appearance: cachetic Lines, tubes and drains: peripheral HEENT: normocephalic, atraumatic Neck: non-tender, normal alignment Respiratory/Chest: chest wall non-tender, lungs clear Cardiovascular/Chest: normal peripheral pulses Abdomen: normal bowel sounds Last 24 Hour Vital Signs Date Time Temp Pulse Resp B/P Pulse Ox O2 Delivery O2 Flow Rate FiO2 01/26/17 17:11 96.6 79 17 95/56 100 Room Air 01/26/17 16:09 99.2 85 19 100/60 98 Room Air 01/26/17 16:09 99.2 85 19 100/60 98 Room Air 01/26/17 15:04 99.2 100 19 100/53 98 Room Air 01/26/17 12:47 98.2 62 16 129/90 93 Room Air Laboratory Tests Test 01/26/17 13:15 01/26/17 13:20 01/26/17 13:40 01/26/17 14:25 Arterial Blood pH 7.440 (7.350-7.450) Arterial Blood Partial Pressure CO2 27.9 mmHg (35.0-45.0) L Arterial Blood Partial Pressure O2 78.3 mmHg (75.0-100.0) Arterial Blood HCO3 18.6 mmol/L (22.0-26.0) L Arterial Blood Oxygen Saturation 96.0 % (92.0-98.0) Arterial Blood Base Excess -4.2 Trell Test Positive White Blood Count 10.2 K/UL (4.8-10.8) Red Blood Count 4.13 M/UL (4.20-5.40) L Hemoglobin 12.6 G/DL (12.0-16.0) Hematocrit 40.1 % (37.0-47.0) Mean Corpuscular Volume 97 FL (80-99) Mean Corpuscular Hemoglobin 30.4 PG (27.0-31.0) Mean Corpuscular Hemoglobin Concent 31.3 G/DL (32.0-36.0) L Red Cell Distribution Width 12.5 % (11.6-14.8) Platelet Count 255 K/UL (150-450) Mean Platelet Volume 5.7 FL (6.5-10.1) L Neutrophils (%) (Auto) % (45.0-75.0) Lymphocytes (%) (Auto) % (20.0-45.0) Monocytes (%) (Auto) % (1.0-10.0) Eosinophils (%) (Auto) % (0.0-3.0) Basophils (%) (Auto) % (0.0-2.0) Differential Total Cells Counted 100 Neutrophils % (Manual) 90 % (45-75) H Lymphocytes % (Manual) 4 % (20-45) L Monocytes % (Manual) 4 % (1-10) Eosinophils % (Manual) 0 % (0-3) Basophils % (Manual) 0 % (0-2) Band Neutrophils 2 % (0-8) Platelet Estimate Adequate Platelet Morphology Normal Hypochromasia 1+ Sodium Level 135 mEQ/L (135-145) Potassium Level 5.0 mEQ/L (3.4-4.9) H Chloride Level 98 mEQ/L (98-107) Carbon Dioxide Level 19 mEQ/L (20-30) L Anion Gap 18 (5-15) H Blood Urea Nitrogen 42 mg/dL (7-23) H Creatinine 2.2 mg/dL (0.5-0.9) H Estimat Glomerular Filtration Rate mL/min (>60) Glucose Level 202 mg/dL (74-106) H Lactic Acid Level 4.10 mmol/L (0.66-2.22) H 3.10 mmol/L (0.66-2.22) H Calcium Level 8.9 mg/dL (8.6-10.2) Total Bilirubin 0.4 mg/dL (0.0-1.2) Aspartate Amino Transf (AST/SGOT) 30 U/L (5-40) Alanine Aminotransferase (ALT/SGPT) 25 U/L (3-33) Alkaline Phosphatase 66 U/L (35-104) Total Creatine Kinase 73 U/L (26-140) Creatine Kinase MB < 1.5 ng/mL (< 3.8) Creatine Kinase MB Relative Index Troponin I < 0.30 ng/mL (<=0.30) Pro-B-Type Natriuretic Peptide 608 pg/mL (0-450) H Total Protein 7.3 g/dL (6.6-8.7) Albumin 3.2 g/dL (3.5-5.2) L Globulin 4.1 g/dL Albumin/Globulin Ratio 0.7 (1.0-2.7) L Urine Color Pale yellow Urine Appearance Cloudy Urine pH 8 (4.5-8.0) Urine Specific [place] 1.010 (1.005-1.035) Urine Protein 4+ (NEGATIVE) H Urine Glucose (UA) Negative (NEGATIVE) Urine Ketones Negative (NEGATIVE) Urine Occult Blood 5+ (NEGATIVE) H Urine Nitrite Negative (NEGATIVE) Urine Bilirubin Negative (NEGATIVE) Urine Urobilinogen Normal MG/DL (0.0-1.0) Urine Leukocyte Esterase 3+ (NEGATIVE) H Urine RBC 15-20 /HPF (0 - 2) H Urine WBC 60-80 /HPF (0 - 2) H Urine Squamous Epithelial Cells Few /LPF (NONE/OCC) Urine Bacteria Moderate /HPF (NONE) H Height (Feet): 5 Height (Inches): 4.00 Weight (Pounds): 140 Medications Current Medications Medications (Trade) Dose Ordered Sig/Odalis Route PRN Reason Start Time Stop Time Status Last Admin Dose Admin Acetaminophen (Tylenol) 650 mg Q4H PRN ORAL T>100.5 01/26/17 14:45 02/25/17 14:44 Albuterol/ Ipratropium 3 ml 3 ml Q4H PRN HHN Shortness of Breath 01/26/17 14:45 01/31/17 14:44 Cefepime HCl/ Dextrose (Maxipime/D5W) 55 ml @ 110 mls/hr ONCE ONCE IV 01/26/17 18:30 01/26/17 18:59 Cefepime HCl/ Dextrose (Maxipime/D5W) 55 ml @ 110 mls/hr Q24H IVPB 01/27/17 18:00 02/03/17 17:59 Heparin Sodium (Porcine) (Heparin 5000 units/ml) 5,000 units EVERY 12 HOURS SUBQ 01/26/17 21:00 02/25/17 20:59 Levothyroxine Sodium (Synthroid) 100 mcg ACBREAKFAST ORAL 01/27/17 06:30 02/26/17 06:29 Memantine (Namenda) 10 mg Q12HR ORAL 01/27/17 09:00 02/26/17 08:59 Nitroglycerin (Ntg) 0.4 mg Q5M PRN SL Prn Chest Pain 01/26/17 14:45 02/25/17 14:44 Ondansetron HCl (Zofran) 4 mg Q6H PRN IVP Nausea & Vomiting 01/26/17 14:45 02/25/17 14:44 Polyethylene Glycol (Miralax) 17 gm DAILYPRN PRN ORAL Constipation 01/26/17 14:45 02/25/17 14:44 Promethazine HCl/ Codeine (Phenergan with Codeine) 5 ml Q4H PRN ORAL For Cough 01/26/17 14:45 02/25/17 14:44 Sodium Chloride 1,000 ml @ 75 mls/hr [id number] IV 01/26/17 16:00 02/25/17 15:59 01/26/17 17:32 Temazepam (Restoril) 15 mg HSPRN PRN ORAL Insomnia 01/26/17 21:00 02/02/17 20:59 Vancomycin HCl 1 ea 1 ea DAILY PRN MISC Per rx protocol 01/26/17 14:45 02/25/17 14:44 Vancomycin HCl/ Dextrose (Vancomycin/D5W) 275 ml @ 183.708 mls/hr Q24H IVPB 01/26/17 19:00 01/31/17 18:59 Vitamin A/Vitamin D 1 applic 1 applic EVERY 12 HOURS TOPIC 01/26/17 21:00 02/25/17 20:59 Assessment/Plan Problem List: (1) SOB (shortness of breath) ICD Codes: R06.02 - Shortness of breath SNOMED: 681158224 (2) Severe sepsis ICD Codes: A41.9 - Sepsis, unspecified organism; R65.20 - Severe sepsis without septic shock SNOMED: 64803321 (3) ATN (acute tubular necrosis) ICD Codes: N17.0 - Acute kidney failure with tubular necrosis SNOMED: 22807218 (4) UTI (urinary tract infection) ICD Codes: N39.0 - Urinary tract infection, site not specified SNOMED: 42569132 Qualifiers: Qualified Codes: N39.0 - Urinary tract infection, site not specified (5) Diabetes mellitus ICD Codes: E11.9 - Type 2 diabetes mellitus without complications SNOMED: 48801605 (6) Alzheimer's dementia ICD Codes: G30.9 - Alzheimer's disease, unspecified SNOMED: 40310527 (7) Dementia ICD Codes: F03.90 - Unspecified dementia without behavioral disturbance SNOMED: 09556092 Assessment/Plan ramirez culture IV antibiotics iv fluids check electrolytes dvt prophylaxis renal work up OCTAVIA GORMAN Jan 26, 2017 18:44
[2017-01-26] MEDS ORDERED: Vancomycin 1gm in D5W 275ml IVPB SCH (19:00)
[2017-01-26 20:00] VITALS: BP 98/53
[2017-01-26] MEDS: Heparin 5000 units/ml inj SUBQ SCH (20:19)
[2017-01-26] MEDS: Vitamin A&D Oint 2oz Tube TOPIC SCH (21:42)
[2017-01-27] VITALS: BP 114/51
--- NOTE | 2017-01-27 00:21 | Wound Care Consultation ---
Wound Assessment Wound Assessment : Wound Present on Admission: Yes New Wound: No Status Change of Wound: No Wound Location Body Site Modif: mid Wound Location Body Site: sacral Wound Type: pressure ulcer Meme Test: Does not Meme Pressure Ulcer Stage: I Wound Length: 4.5 Wound Width: 6.5 Percent of Wound [place]/Red: 100 Wound Drainage Amount: None Wound Drainage Odor: None/Absent Tissue Surrounding Wound: Intact Wound General Appearance: Reddened Wound Comment #1 Sacral stage I pressure ulcer Recommendation -Keep clean and dry -Turn and reposition -Local wound care per protocol for stage I -Offload both heels -Heel protector on both heels -Optimize nutrition -Assess and f/u accordingly for any changes STIVEN PERAZA RN Jan 27, 2017 00:21
--- NOTE | 2017-01-27 00:30 | Consultation ---
DATE OF CONSULTATION: INFECTIOUS DISEASE CONSULTATION CONSULTING PHYSICIAN: Chai Monte M.D. REQUESTING PHYSICIAN: Daniel Ponce D.O. REASON FOR CONSULTATION: Sepsis, urinary tract infection, and recommendation for antibiotics therapy. HISTORY OF PRESENT ILLNESS: The patient is a an 89-year-old female with past medical history of dementia, hypertension, and diabetes, who was sent from care home to [facility] emergency room for shortness of breath and hypoxemia. The patient was having low oxygen saturation at care home. She had no fever or chills. No cough, but she was tachypneic. Upon arrival to the emergency room, her oxygenation improved to 93% on room air and had a temperature of 98.2 degrees. Chest x-ray was negative for acute infiltrate, but her urinalysis showed evidence of infection with renal failure. So, I was consulted by the primary provider for antibiotics treatment and further management for sepsis. As of note, the patient is a poor historian, demented, and cannot provide any history. History was mainly obtained from the medical record. PAST MEDICAL HISTORY: Significant for diabetes, hypertension, and dementia. PAST SURGICAL HISTORY: Unknown. MEDICATIONS: The patient received levofloxacin in the emergency room and she was started on vancomycin and cefepime by the admitting physician. For the rest of her medications, please refer to MAR. ALLERGIES: She has no known drug allergy. SOCIAL HISTORY: She is care home resident. Denied using any drugs, tobacco, or alcohol. FAMILY HISTORY: Unable to obtain. REVIEW OF SYSTEMS: Unable to obtain at this point. The patient is poor historian, cannot provide any history. PHYSICAL EXAMINATION: VITAL SIGNS: Temperature 99.2 degrees, pulse 100, respirations 19, blood pressure 100/53, and saturation 98% on room air. GENERAL: Elderly female, lying in bed, demented, nonverbal, not in acute distress. HEENT: Normocephalic and atraumatic. Pupils reactive to light. Pale sclera. Dry oral mucosa. No exudate. NECK: Supple. No lymphadenopathy. CARDIOVASCULAR: Regular rate and rhythm. No murmur or gallop. LUNGS: Clear bilaterally. Diminished breathing sounds at the bases. No wheezing or rhonchi. ABDOMEN: Soft, nontender, and nondistended. Normal bowel sounds. No hepatosplenomegaly. EXTREMITIES: No edema or cyanosis. SKIN: No rash. No hives. LABORATORY DATA: Labs showed white count of 10.2, hemoglobin of 12.6, and platelet count of 255,000. BUN of 42 and creatinine of 2.2. Urinalysis showed +3 leukocyte esterase, WBC 60 to 80, and moderate amount of urine bacteria. IMAGING: Chest x-ray showed no acute process. ASSESSMENT AND RECOMMENDATIONS: 1. Urinary tract infection. We will start cefepime and send urine culture. 2. Sepsis due to urinary tract infection. We will continue cefepime empiric treatment pending blood culture and urine culture results. 3. Shortness of breath with hypoxemia, rule out pulmonary edema. Recommended ventilation/perfusion scan and venous Doppler. Further management as per oral and maxillofacial surgery resident. 4. Renal insufficiency, suspect dehydration. Continue intravenous fluids. Avoid nephrotoxic medicines. Consult Renal. 5. Diabetes. Recommend tight glycemic control to keep blood glucose between 80 to 120. Chai Monte M.D. DR: ASHA JOB#: [id number] CC:
--- NOTE | 2017-01-27 01:45 | History and Physical Report ---
DATE OF ADMISSION: 01/26/2017 TIME SEEN: 2 p.m. ATTENDING PHYSICIAN: Daniel Ponce D.O. CONSULTANTS: 1. Dilma Seay M.D. 2. Cira Dorado M.D. 3. Dr. Rich. CHIEF COMPLAINT: Hypoxia, encephalopathy, and weakness. BRIEF HISTORY: This is an 89-year-old female from [facility], presented with above-mentioned diagnosis, currently confused, , and not talking. PAST MEDICAL HISTORY: Includes hypoxia, encephalopathy, weakness, and Alzheimer's. PAST SURGICAL HISTORY: Unknown. MEDICATIONS: Include Tylenol and IV fluids. ALLERGIES: Denies. SOCIAL HISTORY: No smoking. No alcohol. No intravenous drug abuse. FAMILY HISTORY: Noncontributory. REVIEW OF SYSTEMS: No chest pain or shortness of breath. No nausea, vomiting or diarrhea. PHYSICAL EXAMINATION: GENERAL: Calm in bed, oriented x1, in no acute distress. VITAL SIGNS: Temperature is 98 degrees, pulse 62, respirations 16, and blood pressure 120/90. CARDIOVASCULAR: No murmurs. LUNGS: Distant and poor exchange. ABDOMEN: Positive bowel sounds. Soft, nontender, and nondistended. EXTREMITIES: No cyanosis, clubbing, or edema. NEUROLOGIC: The patient moves all extremities. She does not want to follow commands. LABORATORY AND DIAGNOSTIC DATA: Labs at this time show CBC is normal. CMP is pending. ASSESSMENT: 1. Hypoxia. 2. Encephalopathy. 3. Weakness. 4. Alzheimer's. PLAN: 1. Continue premedications. 2. O2 and pulmonary treatment as needed. 3. Check labs . 4. Dr. Seay and Dr. Dorado to consult. 5. We will continue to follow this patient medically. 6. OT, PT and dietary evaluation. 7. CBC and CMP in the morning. Daniel Ponce D.O. DR: CINDA JOB#: [id number] CC:
[2017-01-27 08:01] VITALS: BP 106/57
[2017-01-27] MEDS: Vitamin A&D Oint 2oz Tube TOPIC SCH ×2 (08:37→20:28)
[2017-01-27] MEDS: Heparin 5000 units/ml inj SUBQ SCH ×2 (08:37→20:19)
--- NOTE | 2017-01-27 08:44 | General Progress Note ---
Assessment/Plan Problem List: (1) Altered level of consciousness ICD Codes: R40.4 - Transient alteration of awareness SNOMED: 8213774 (2) Weakness ICD Codes: R53.1 - Weakness SNOMED: 53732994 (3) Encephalopathy ICD Codes: G93.40 - Encephalopathy, unspecified SNOMED: 62114953, 679140675 (4) Alzheimer's dementia ICD Codes: G30.9 - Alzheimer's disease, unspecified SNOMED: 84675486 (5) Renal insufficiency ICD Codes: N28.9 - Disorder of kidney and ureter, unspecified; R65.20 - Severe sepsis without septic shock SNOMED: 478303719, 530717684 (6) UTI (urinary tract infection) ICD Codes: N39.0 - Urinary tract infection, site not specified SNOMED: 88064256 Qualifiers: Qualified Codes: N39.0 - Urinary tract infection, site not specified (7) Sepsis ICD Codes: A41.9 - Sepsis, unspecified organism SNOMED: 78063476 (8) Hypoxia ICD Codes: R09.02 - Hypoxemia SNOMED: 52444443, 359566598 Status: stable, progressing, tolerating diet Assessment/Plan ot pt diet abx cbc bmp am Subjective Constitutional: Reports: weakness Allergies: Coded Allergies: No Known Allergies (Unverified , 08/20/15) All Systems: reviewed and negative except above Subjective sleepy calm Objective Last 24 Hour Vital Signs Date Time Temp Pulse Resp B/P Pulse Ox O2 Delivery O2 Flow Rate FiO2 01/27/17 08:01 97.5 85 17 106/57 95 Room Air 01/27/17 04:00 85 01/27/17 00:00 61 01/27/17 00:00 97.0 66 18 114/51 96 Room Air 01/26/17 20:00 70 01/26/17 20:00 97.0 69 18 98/53 96 Room Air 01/26/17 19:07 68 01/26/17 19:03 89 16 Room Air 01/26/17 17:11 96.6 79 17 95/56 100 Room Air 01/26/17 16:20 78 21 112/46 98 Room Air 01/26/17 16:09 99.2 85 19 100/60 98 Room Air 01/26/17 16:09 99.2 85 19 100/60 98 Room Air 01/26/17 15:04 99.2 100 19 100/53 98 Room Air 01/26/17 12:47 98.2 62 16 129/90 93 Room Air Intake and Output 01/26/17 01/27/17 19:00 07:00 Intake Total 2500 ml 950.000 ml Output Total 675 ml Balance 2500 ml 275.000 ml Intake Oral 0 ml IV Total 2500 ml 950.000 ml Output Urine Total 675 ml Laboratory Tests 01/26/17 13:15: Arterial Blood pH 7.440, Arterial Blood Partial Pressure CO2 27.9L, Arterial Blood Partial Pressure O2 78.3, Arterial Blood HCO3 18.6L, Arterial Blood Oxygen Saturation 96.0, Arterial Blood Base Excess -4.2, Trell Test Positive 01/26/17 13:20: White Blood Count 10.2, Red Blood Count 4.13L, Hemoglobin 12.6, Hematocrit 40.1 , Mean Corpuscular Volume 97, Mean Corpuscular Hemoglobin 30.4, Mean Corpuscular Hemoglobin Concent 31.3L, Red Cell Distribution Width 12.5, Platelet Count 255, Mean Platelet Volume 5.7L, Neutrophils (%) (Auto) , Lymphocytes (%) (Auto) , Monocytes (%) (Auto) , Eosinophils (%) (Auto) , Basophils (%) (Auto) , Differential Total Cells Counted 100, Neutrophils % ( Manual) 90H, Lymphocytes % (Manual) 4L, Monocytes % (Manual) 4, Eosinophils % ( Manual) 0, Basophils % (Manual) 0, Band Neutrophils 2, Platelet Estimate Adequate, Platelet Morphology Normal, Hypochromasia 1+, Sodium Level 135, Potassium Level 5.0H, Chloride Level 98, Carbon Dioxide Level 19L, Anion Gap 18H , Blood Urea Nitrogen 42H, Creatinine 2.2H, Estimat Glomerular Filtration Rate , Glucose Level 202H, Lactic Acid Level 4.10H, Calcium Level 8.9, Total Bilirubin 0.4, Aspartate Amino Transf (AST/SGOT) 30, Alanine Aminotransferase ( ALT/SGPT) 25, Alkaline Phosphatase 66, Total Creatine Kinase 73, Creatine Kinase MB < 1.5, Creatine Kinase MB Relative Index , Troponin I < 0.30, Pro-B- Type Natriuretic Peptide 608H, Total Protein 7.3, Albumin 3.2L, Globulin 4.1, Albumin/Globulin Ratio 0.7L 01/26/17 13:40: Urine Color Pale yellow, Urine Appearance Cloudy, Urine pH 8, Urine Specific [place] 1.010, Urine Protein 4+H, Urine Glucose (UA) Negative, Urine Ketones Negative, Urine Occult Blood 5+H, Urine Nitrite Negative, Urine Bilirubin Negative, Urine Urobilinogen Normal, Urine Leukocyte Esterase 3+H, Urine RBC 15- 20H, Urine WBC 60-80H, Urine Squamous Epithelial Cells Few, Urine Bacteria ModerateH 01/26/17 14:25: Lactic Acid Level 3.10H 01/26/17 18:15: Urine Random Sodium 28 Height (Feet): 5 Height (Inches): 4.00 Weight (Pounds): 140 General Appearance: lethargic EENT: normal ENT inspection Neck: normal alignment Cardiovascular: normal peripheral pulses, normal rate, regular rhythm Respiratory/Chest: chest wall non-tender, lungs clear, normal breath sounds Abdomen: normal bowel sounds, non tender, soft Extremities: normal inspection Edema: no edema noted Arm (L), no edema noted Arm (R), no edema noted Leg (L), no edema noted Leg (R), no edema noted Pedal (L), no edema noted Pedal (R), no edema noted Generalized Neurologic: motor weakness Skin: normal pigmentation, warm/dry SOURAV WEBB Jan 27, 2017 08:44
[2017-01-27] MEDS ORDERED: Memantine 10mg tab ORAL SCH (09:00)
[2017-01-27] MEDS ORDERED: Oxybutynin 5mg tab ORAL SCH (09:00)
--- NOTE | 2017-01-27 09:00 | Pulmonology Progress Note ---
Assessment/Plan Problems: (1) SOB (shortness of breath) (2) Severe sepsis (3) ATN (acute tubular necrosis) (4) UTI (urinary tract infection) (5) Diabetes mellitus (6) Alzheimer's dementia (7) Dementia Assessment/Plan swallow study npo med/surg ramirez culture IV antibiotics iv fluids check electrolytes dvt prophylaxis renal work up Subjective ROS Limited/Unobtainable: No Constitutional: Reports: no symptoms HEENT: Repors: no symptoms Allergies: Coded Allergies: No Known Allergies (Unverified , 08/20/15) Objective Last 24 Hour Vital Signs Date Time Temp Pulse Resp B/P Pulse Ox O2 Delivery O2 Flow Rate FiO2 01/27/17 08:01 97.5 85 17 106/57 95 Room Air 01/27/17 04:00 85 01/27/17 00:00 61 01/27/17 00:00 97.0 66 18 114/51 96 Room Air 01/26/17 20:00 70 01/26/17 20:00 97.0 69 18 98/53 96 Room Air 01/26/17 19:07 68 01/26/17 19:03 89 16 Room Air 01/26/17 17:11 96.6 79 17 95/56 100 Room Air 01/26/17 16:20 78 21 112/46 98 Room Air 01/26/17 16:09 99.2 85 19 100/60 98 Room Air 01/26/17 16:09 99.2 85 19 100/60 98 Room Air 01/26/17 15:04 99.2 100 19 100/53 98 Room Air 01/26/17 12:47 98.2 62 16 129/90 93 Room Air Intake and Output 01/26/17 01/27/17 19:00 07:00 Intake Total 2500 ml 950.000 ml Output Total 675 ml Balance 2500 ml 275.000 ml Intake Oral 0 ml IV Total 2500 ml 950.000 ml Output Urine Total 675 ml General Appearance: cachetic HEENT: normocephalic, atraumatic Respiratory/Chest: chest wall non-tender, lungs clear Cardiovascular: normal peripheral pulses, normal rate Abdomen: normal bowel sounds, soft, non tender Genitourinary: normal external genitalia Extremities: no cyanosis Laboratory Tests 01/26/17 13:15: Arterial Blood pH 7.440, Arterial Blood Partial Pressure CO2 27.9L, Arterial Blood Partial Pressure O2 78.3, Arterial Blood HCO3 18.6L, Arterial Blood Oxygen Saturation 96.0, Arterial Blood Base Excess -4.2, Trell Test Positive 01/26/17 13:20: White Blood Count 10.2, Red Blood Count 4.13L, Hemoglobin 12.6, Hematocrit 40.1 , Mean Corpuscular Volume 97, Mean Corpuscular Hemoglobin 30.4, Mean Corpuscular Hemoglobin Concent 31.3L, Red Cell Distribution Width 12.5, Platelet Count 255, Mean Platelet Volume 5.7L, Neutrophils (%) (Auto) , Lymphocytes (%) (Auto) , Monocytes (%) (Auto) , Eosinophils (%) (Auto) , Basophils (%) (Auto) , Differential Total Cells Counted 100, Neutrophils % ( Manual) 90H, Lymphocytes % (Manual) 4L, Monocytes % (Manual) 4, Eosinophils % ( Manual) 0, Basophils % (Manual) 0, Band Neutrophils 2, Platelet Estimate Adequate, Platelet Morphology Normal, Hypochromasia 1+, Sodium Level 135, Potassium Level 5.0H, Chloride Level 98, Carbon Dioxide Level 19L, Anion Gap 18H , Blood Urea Nitrogen 42H, Creatinine 2.2H, Estimat Glomerular Filtration Rate , Glucose Level 202H, Lactic Acid Level 4.10H, Calcium Level 8.9, Total Bilirubin 0.4, Aspartate Amino Transf (AST/SGOT) 30, Alanine Aminotransferase ( ALT/SGPT) 25, Alkaline Phosphatase 66, Total Creatine Kinase 73, Creatine Kinase MB < 1.5, Creatine Kinase MB Relative Index , Troponin I < 0.30, Pro-B- Type Natriuretic Peptide 608H, Total Protein 7.3, Albumin 3.2L, Globulin 4.1, Albumin/Globulin Ratio 0.7L 01/26/17 13:40: Urine Color Pale yellow, Urine Appearance Cloudy, Urine pH 8, Urine Specific [place] 1.010, Urine Protein 4+H, Urine Glucose (UA) Negative, Urine Ketones Negative, Urine Occult Blood 5+H, Urine Nitrite Negative, Urine Bilirubin Negative, Urine Urobilinogen Normal, Urine Leukocyte Esterase 3+H, Urine RBC 15- 20H, Urine WBC 60-80H, Urine Squamous Epithelial Cells Few, Urine Bacteria ModerateH 01/26/17 14:25: Lactic Acid Level 3.10H 01/26/17 18:15: Urine Random Sodium 28 Current Medications Medications (Trade) Dose Ordered Sig/Odalis Route PRN Reason Start Time Stop Time Status Last Admin Dose Admin Acetaminophen (Tylenol) 650 mg Q4H PRN ORAL T>100.5 01/26/17 14:45 02/25/17 14:44 Albuterol/ Ipratropium (DuoNeb 0.5-3(2.5)mg/3ml) 3 ml Q4H PRN HHN Shortness of Breath 01/26/17 14:45 01/31/17 14:44 Cefepime HCl/ Dextrose (Maxipime/D5W) 55 ml @ 110 mls/hr Q24H IVPB 01/27/17 18:00 02/03/17 17:59 Heparin Sodium (Porcine) (Heparin 5000 units/ml) 5,000 units EVERY 12 HOURS SUBQ 01/26/17 21:00 02/25/17 20:59 01/26/17 20:19 Levothyroxine Sodium (Synthroid) 100 mcg ACBREAKFAST ORAL 01/27/17 06:30 02/26/17 06:29 01/27/17 05:55 Memantine (Namenda) 10 mg Q12HR ORAL 01/27/17 09:00 02/26/17 08:59 Nitroglycerin (Ntg) 0.4 mg Q5M PRN SL Prn Chest Pain 01/26/17 14:45 02/25/17 14:44 Ondansetron HCl (Zofran) 4 mg Q6H PRN IVP Nausea & Vomiting 01/26/17 14:45 02/25/17 14:44 Polyethylene Glycol (Miralax) 17 gm DAILYPRN PRN ORAL Constipation 01/26/17 14:45 02/25/17 14:44 Promethazine HCl/ Codeine (Phenergan with Codeine) 5 ml Q4H PRN ORAL For Cough 01/26/17 14:45 02/25/17 14:44 Sodium Chloride 1,000 ml @ 75 mls/hr [id number] IV 01/26/17 16:00 02/25/17 15:59 01/27/17 05:55 Temazepam (Restoril) 15 mg HSPRN PRN ORAL Insomnia 01/26/17 21:00 02/02/17 20:59 Vancomycin HCl 1 ea 1 ea DAILY PRN MISC Per rx protocol 01/26/17 14:45 02/25/17 14:44 Vancomycin HCl/ Dextrose (Vancomycin/D5W) 275 ml @ 183.708 mls/hr Q24H IVPB 01/26/17 19:00 01/31/17 18:59 01/26/17 20:17 Vitamin A/Vitamin D 1 applic 1 applic EVERY 12 HOURS TOPIC 01/26/17 21:00 02/25/17 20:59 01/27/17 08:37 OCTAVIA GORMAN Jan 27, 2017 09:00
[2017-01-27] MEDS ORDERED: Tubing IV Secondary IV ONE (09:05)
[2017-01-27 09:28] LABS: APPEARANCE,URINE SLIGHTLY CLOUDY; KETONES,URINE NEGATIVE (NEGATIVE); LEUKOCYTE ESTERASE ,URINE 3+ (NEGATIVE); NITRITE,URINE NEGATIVE (NEGATIVE); PH,URINE 8 (4.5-8.0); PROTEIN,URINE 2+ (NEGATIVE); UROBILINOGEN,URINE NORMAL MG/DL (0.0-1.0)
[2017-01-27 10:05] LABS: BACTERIA,URINE MANY /HPF; RBC,URINE 20-30 /HPF (0 - 2); SQUAMOUS EPITHELIAL CELL,UR FEW /LPF (NONE/OCC); WBC,URINE TNTC /HPF (0 - 2)
[2017-01-27 10:28] LABS: MEAN CORPUSCULAR HEMOGLOBIN 30.9 PG (27.0-31.0); MEAN CORPUSCULAR HGB CONC 31.8 G/DL (32.0-36.0); MEAN CORPUSCULAR VOLUME 97 FL (80-99); MEAN PLATELET VOLUME 6.3 FL (6.5-10.1); PLATELET COUNT 270 K/UL (150-450); RED BLOOD COUNT 4.31 M/UL (4.20-5.40); RED CELL DISTRIBUTION WIDTH 12.3 % (11.6-14.8); WHITE BLOOD COUNT 7.1 K/UL (4.8-10.8)
[2017-01-27 10:53] LABS: ALANINE AMINOTRANSFERASE 19 U/L (3-33); ALBUMIN/GLOBULIN RATIO 0.8 (1.0-2.7); ANION GAP 16 (5-15); ASPARTATE AMINO TRANSFERASE 19 U/L (5-40); BAND NEUTROPHILS % (MANUAL) 0 % (0-8); BASOPHILS % (MANUAL) 0 % (0-2); CALCIUM 8.2 mg/dL (8.6-10.2); CARBON DIOXIDE 18 mEQ/L (20-30); CHLORIDE 106 mEQ/L (98-107); CHOLESTEROL 158 mg/dL (< 200); CHOLESTEROL/HDL RATIO 9.9 (3.3-4.4); CREATININE 1.9 mg/dL (0.5-0.9); CRP QUANT 11.8 mg/dL (< 0.5); EOSINOPHILS % (MANUAL) 0 % (0-3); HEMOGLOBIN A1C 5.9 % (< 6.0); HEMOLYSIS 2; LDL CHOLESTEROL (CALC.) 88 mg/dL (60-99); LYMPHOCYTES % (MANUAL) 9 % (20-45); MAGNESIUM 1.9 mg/dL (1.7-2.5); NEUTROPHILS % (MANUAL) 89 % (45-75); PHOSPHORUS 2.7 mg/dL (2.5-4.8); PLATELET ESTIMATE ADEQUATE; PLATELET MORPHOLOGY NORMAL; POTASSIUM 3.9 mEQ/L (3.4-4.9); SODIUM 140 mEQ/L (135-145); TOTAL CELLS COUNTED 100; TOTAL PROTEIN 7.2 g/dL (6.6-8.7); URIC ACID 6.4 mg/dL (3.0-7.5)
[2017-01-27 10:55] LABS: URIC ACID 6.3 mg/dL (3.0-7.5)
[2017-01-27 12:00] VITALS: BP 115/84
--- NOTE | 2017-01-27 14:14 | Infectious Diseases Prog Note ---
Assessment/Plan Problems: (1) Sepsis Assessment & Plan: suspect due to UTI, on cefepime empirically , pending urine culture (2) UTI (urinary tract infection) Assessment & Plan: on cefepime, await urine culture (3) SOB (shortness of breath) Assessment & Plan: rule out PE, recommend V/Q scan, and venous doppler (4) Renal insufficiency Assessment & Plan: suspect dehydration, continue IVF, avoid nephrotoxic meds, renal is consulted (5) Hypoxia Assessment & Plan: continue oxygen, recommend CT angio of the lungs (6) Diabetes mellitus Assessment & Plan: recommend tight glycemic control to keep blood glucose between 80-120 Subjective ROS Limited/Unobtainable: Yes Allergies: Coded Allergies: No Known Allergies (Unverified , 08/20/15) Subjective she was up in bed, awake, nonverbal, not in distress Objective Vital Signs Last 24 Hour Vital Signs Date Time Temp Pulse Resp B/P Pulse Ox O2 Delivery O2 Flow Rate FiO2 01/27/17 12:00 109 01/27/17 12:00 97.9 109 17 115/84 98 Room Air 01/27/17 08:01 97.5 85 17 106/57 95 Room Air 01/27/17 08:00 61 01/27/17 07:54 76 18 Room Air 01/27/17 04:00 85 01/27/17 00:00 61 01/27/17 00:00 97.0 66 18 114/51 96 Room Air 01/26/17 20:00 70 01/26/17 20:00 97.0 69 18 98/53 96 Room Air 01/26/17 19:07 68 01/26/17 19:03 89 16 Room Air 01/26/17 17:11 96.6 79 17 95/56 100 Room Air 01/26/17 16:20 78 21 112/46 98 Room Air 01/26/17 16:09 99.2 85 19 100/60 98 Room Air 01/26/17 16:09 99.2 85 19 100/60 98 Room Air 01/26/17 15:04 99.2 100 19 100/53 98 Room Air Height (Feet): 5 Height (Inches): 4.00 Weight (Pounds): 140 General Appearance: WD/WN, no acute distress HEENT: normocephalic, atraumatic, anicteric, mucous membranes moist, PERRL, supple Respiratory/Chest: chest wall non-tender, lungs clear, normal breath sounds, no respiratory distress, no accessory muscle use Cardiovascular: normal peripheral pulses, normal rate, regular rhythm, no gallop/murmur, no JVD Abdomen: normal bowel sounds, soft, non tender, no organomegaly, non distended , no mass Extremities: no cyanosis, no clubbing Skin: no rash, no lesions, ulcers Lymphatic: no neck adenopathy, no groin adenopathy Microbiology Date/Time Source Procedure Growth Status 01/26/17 13:40 Urine,Clean Catch Urine Culture - Preliminary Gram Negative Max Resulted Laboratory Tests Test 01/26/17 14:25 01/26/17 18:15 01/27/17 08:58 01/27/17 10:10 Lactic Acid Level 3.10 mmol/L (0.66-2.22) H Urine Random Sodium 28 mmol/L 66 mmol/L Urine Color Pale yellow Urine Appearance Slightly cloudy Urine pH 8 (4.5-8.0) Urine Specific [place] 1.010 (1.005-1.035) Urine Protein 2+ (NEGATIVE) H Urine Glucose (UA) Negative (NEGATIVE) Urine Ketones Negative (NEGATIVE) Urine Occult Blood 5+ (NEGATIVE) H Urine Nitrite Negative (NEGATIVE) Urine Bilirubin Negative (NEGATIVE) Urine Urobilinogen Normal MG/DL (0.0-1.0) Urine Leukocyte Esterase 3+ (NEGATIVE) H Urine RBC 20-30 /HPF (0 - 2) H Urine WBC Tntc /HPF (0 - 2) H Urine Squamous Epithelial Cells Few /LPF (NONE/OCC) Urine Bacteria Many /HPF (NONE) H Urine Eosinophils None seen Urine Potassium Timed 22 mmol/L White Blood Count 7.1 K/UL (4.8-10.8) Red Blood Count 4.31 M/UL (4.20-5.40) Hemoglobin 13.3 G/DL (12.0-16.0) Hematocrit 41.8 % (37.0-47.0) Mean Corpuscular Volume 97 FL (80-99) Mean Corpuscular Hemoglobin 30.9 PG (27.0-31.0) Mean Corpuscular Hemoglobin Concent 31.8 G/DL (32.0-36.0) L Red Cell Distribution Width 12.3 % (11.6-14.8) Platelet Count 270 K/UL (150-450) Mean Platelet Volume 6.3 FL (6.5-10.1) L Neutrophils (%) (Auto) % (45.0-75.0) Lymphocytes (%) (Auto) % (20.0-45.0) Monocytes (%) (Auto) % (1.0-10.0) Eosinophils (%) (Auto) % (0.0-3.0) Basophils (%) (Auto) % (0.0-2.0) Differential Total Cells Counted 100 Neutrophils % (Manual) 89 % (45-75) H Lymphocytes % (Manual) 9 % (20-45) L Monocytes % (Manual) 2 % (1-10) Eosinophils % (Manual) 0 % (0-3) Basophils % (Manual) 0 % (0-2) Band Neutrophils 0 % (0-8) Platelet Estimate Adequate Platelet Morphology Normal Red Blood Cell Morphology Normal Sodium Level 140 mEQ/L (135-145) Potassium Level 3.9 mEQ/L (3.4-4.9) Chloride Level 106 mEQ/L (98-107) Carbon Dioxide Level 18 mEQ/L (20-30) L Anion Gap 16 (5-15) H Blood Urea Nitrogen 29 mg/dL (7-23) H Creatinine 1.9 mg/dL (0.5-0.9) H Estimat Glomerular Filtration Rate mL/min (>60) Glucose Level 99 mg/dL (74-106) # Hemoglobin A1c 5.9 % (< 6.0) Uric Acid 6.3 mg/dL (3.0-7.5) Calcium Level 8.2 mg/dL (8.6-10.2) L Phosphorus Level 2.7 mg/dL (2.5-4.8) Magnesium Level 1.9 mg/dL (1.7-2.5) Total Bilirubin 0.5 mg/dL (0.0-1.2) Gamma Glutamyl Transpeptidase 39 U/L (5-36) H Aspartate Amino Transf (AST/SGOT) 19 U/L (5-40) Alanine Aminotransferase (ALT/SGPT) 19 U/L (3-33) Alkaline Phosphatase 62 U/L (35-104) Total Creatine Kinase 91 U/L (26-140) C-Reactive Protein, Quantitative 11.8 mg/dL (< 0.5) H Pro-B-Type Natriuretic Peptide 2500 pg/mL (0-450) H Total Protein 7.2 g/dL (6.6-8.7) Albumin 3.2 g/dL (3.5-5.2) L Globulin 4.0 g/dL Albumin/Globulin Ratio 0.8 (1.0-2.7) L Triglycerides Level 268 mg/dL (< 150) H Cholesterol Level 158 mg/dL (< 200) LDL Cholesterol 88 mg/dL (60-99) HDL Cholesterol 16 mg/dL (> 60) Cholesterol/HDL Ratio 9.9 (3.3-4.4) H Thyroid Stimulating Hormone (TSH) 2.090 uIU/mL (0.300-4.500) Cortisol AM Sample 39.0 ug/dL (6.0-20.0) H Current Medications Medications (Trade) Dose Ordered Sig/Odalis Route PRN Reason Start Time Stop Time Status Last Admin Dose Admin Acetaminophen (Tylenol) 650 mg Q4H PRN ORAL T>100.5 01/26/17 14:45 02/25/17 14:44 Albuterol/ Ipratropium (DuoNeb 0.5-3(2.5)mg/3ml) 3 ml Q4H PRN HHN Shortness of Breath 01/26/17 14:45 01/31/17 14:44 Cefepime HCl/ Dextrose (Maxipime/D5W) 55 ml @ 110 mls/hr Q24H IVPB 01/27/17 18:00 02/03/17 17:59 Heparin Sodium (Porcine) (Heparin 5000 units/ml) 5,000 units EVERY 12 HOURS SUBQ 01/26/17 21:00 02/25/17 20:59 01/26/17 20:19 Levothyroxine Sodium (Synthroid) 100 mcg ACBREAKFAST ORAL 01/27/17 06:30 02/26/17 06:29 01/27/17 05:55 Memantine (Namenda) 10 mg Q12HR ORAL 01/27/17 09:00 02/26/17 08:59 Nitroglycerin (Ntg) 0.4 mg Q5M PRN SL Prn Chest Pain 01/26/17 14:45 02/25/17 14:44 Ondansetron HCl (Zofran) 4 mg Q6H PRN IVP Nausea & Vomiting 01/26/17 14:45 02/25/17 14:44 Polyethylene Glycol (Miralax) 17 gm DAILYPRN PRN ORAL Constipation 01/26/17 14:45 02/25/17 14:44 Promethazine HCl/ Codeine (Phenergan with Codeine) 5 ml Q4H PRN ORAL For Cough 01/26/17 14:45 02/25/17 14:44 Sodium Chloride 1,000 ml @ 75 mls/hr [id number] IV 01/26/17 16:00 02/25/17 15:59 01/27/17 05:55 Temazepam (Restoril) 15 mg HSPRN PRN ORAL Insomnia 01/26/17 21:00 02/02/17 20:59 Vancomycin HCl 1 ea 1 ea DAILY PRN MISC Per rx protocol 01/26/17 14:45 02/25/17 14:44 Vancomycin HCl/ Dextrose (Vancomycin/D5W) 275 ml @ 183.708 mls/hr Q24H IVPB 01/26/17 19:00 01/31/17 18:59 01/26/17 20:17 Vitamin A/Vitamin D 1 applic 1 applic EVERY 12 HOURS TOPIC 01/26/17 21:00 02/25/17 20:59 01/27/17 08:37 Chai Monte M.D. Jan 27, 2017 14:14
[2017-01-27 15:36] VITALS: BP_SYST 115; BP_SYST 127; BP_DIAS 79; BP_DIAS 84
[2017-01-27] MEDS ORDERED: DuoNeb 0.5-3(2.5)mg/3ml neb HHN PRN (16:00)
[2017-01-27] MEDS ORDERED: Promethazine/Codeine 5ml UD ORAL PRN (16:00)
[2017-01-27] MEDS ORDERED: Nitroglycerin Subl 0.4mg tab (Bottle Of 25) SL PRN (16:00)
[2017-01-27 17:49] LABS: ABG ALLEN TEST POSITIVE; ABG BASE EXCESS -8.4; ABG PCO2 23.5 mmHg (35.0-45.0)
[2017-01-27 18:00] VITALS: BP 141/53
[2017-01-27] MEDS ORDERED: Cefepime HCl 0.5 GM in D5W 55 ML IVPB SCH (18:00)
[2017-01-27] MEDS: Cefepime HCl 0.5 GM in D5W 55 ML IVPB SCH (18:14)
[2017-01-27] MEDS: Vancomycin 1 GM in D5W 275 ML IVPB SCH (18:28)
[2017-01-27] MEDS ORDERED: LORazepam Inj 2mg/ml 1ml IV PRN (18:45)
[2017-01-27 20:00] VITALS: BP 121/57
[2017-01-27] MEDS: Memantine 10mg tab ORAL SCH (20:17)
[2017-01-28] VITALS: BP 103/47
[2017-01-28 04:00] VITALS: BP 104/57
[2017-01-28 07:27] LABS: BASOPHILS % (AUTO) 0.6 % (0.0-2.0); EOSINOPHILS % (AUTO) 1.3 % (0.0-3.0); LYMPHOCYTES % (AUTO) 16.5 % (20.0-45.0); MEAN CORPUSCULAR HGB CONC 31.9 G/DL (32.0-36.0); MEAN CORPUSCULAR VOLUME 97 FL (80-99); MEAN PLATELET VOLUME 5.9 FL (6.5-10.1); MONOCYTES % (AUTO) 8.8 % (1.0-10.0); NEUTROPHILS % (AUTO) 72.8 % (45.0-75.0); PLATELET COUNT 240 K/UL (150-450); RED BLOOD COUNT 3.56 M/UL (4.20-5.40); RED CELL DISTRIBUTION WIDTH 12.3 % (11.6-14.8); WHITE BLOOD COUNT 12.6 K/UL (4.8-10.8)
--- NOTE | 2017-01-28 07:34 | General Progress Note ---
Assessment/Plan Problem List: (1) Altered level of consciousness ICD Codes: R40.4 - Transient alteration of awareness SNOMED: 7176954 (2) Weakness ICD Codes: R53.1 - Weakness SNOMED: 59920533 (3) Encephalopathy ICD Codes: G93.40 - Encephalopathy, unspecified SNOMED: 29542846, 182416561 (4) Alzheimer's dementia ICD Codes: G30.9 - Alzheimer's disease, unspecified SNOMED: 91756563 (5) Renal insufficiency ICD Codes: N28.9 - Disorder of kidney and ureter, unspecified; R65.20 - Severe sepsis without septic shock SNOMED: 805902308, 765642846 (6) UTI (urinary tract infection) ICD Codes: N39.0 - Urinary tract infection, site not specified SNOMED: 20587725 Qualifiers: Qualified Codes: N39.0 - Urinary tract infection, site not specified (7) Sepsis ICD Codes: A41.9 - Sepsis, unspecified organism SNOMED: 67165337 (8) Hypoxia ICD Codes: R09.02 - Hypoxemia SNOMED: 36372057, 008085214 Status: stable, progressing, tolerating diet Assessment/Plan ot pt diet abx cbc bmp am psyc transfer Subjective Constitutional: Reports: weakness Allergies: Coded Allergies: No Known Allergies (Unverified , 08/20/15) All Systems: reviewed and negative except above Subjective confused sl agitated Objective Last 24 Hour Vital Signs Date Time Temp Pulse Resp B/P Pulse Ox O2 Delivery O2 Flow Rate FiO2 01/28/17 04:00 97.5 93 20 104/57 99 Room Air 01/28/17 00:00 98.2 98 20 103/47 97 Room Air 01/27/17 21:15 99.1 01/27/17 20:21 72 16 Room Air 01/27/17 20:00 100.1 92 20 121/57 96 Nasal Cannula 2.0 01/27/17 18:00 99.5 121 18 141/53 98 Room Air 01/27/17 15:36 98.2 109 17 127/79 98 01/27/17 12:00 109 01/27/17 12:00 97.9 109 17 115/84 98 Room Air 01/27/17 08:01 97.5 85 17 106/57 95 Room Air 7/8/17 08:00 61 01/27/17 07:54 76 18 Room Air Intake and Output 01/27/17 01/28/17 19:00 07:00 Intake Total 750 ml 450 ml Output Total 650 ml 350 ml Balance 100 ml 100 ml IV Total 750 ml 450 ml Output Urine Total 650 ml 350 ml Laboratory Tests 01/27/17 08:58: Urine Color Pale yellow, Urine Appearance Slightly cloudy, Urine pH 8, Urine Specific [place] 1.010, Urine Protein 2+H, Urine Glucose (UA) Negative, Urine Ketones Negative, Urine Occult Blood 5+H, Urine Nitrite Negative, Urine Bilirubin Negative, Urine Urobilinogen Normal, Urine Leukocyte Esterase 3+H, Urine RBC 20-30H, Urine WBC TntcH, Urine Squamous Epithelial Cells Few, Urine Bacteria ManyH, Urine Eosinophils None seen, Urine Random Sodium 66, Urine Potassium Timed 22 01/27/17 10:10: White Blood Count 7.1, Red Blood Count 4.31, Hemoglobin 13.3, Hematocrit 41.8, Mean Corpuscular Volume 97, Mean Corpuscular Hemoglobin 30.9, Mean Corpuscular Hemoglobin Concent 31.8L, Red Cell Distribution Width 12.3, Platelet Count 270, Mean Platelet Volume 6.3L, Neutrophils (%) (Auto) , Lymphocytes (%) (Auto) , Monocytes (%) (Auto) , Eosinophils (%) (Auto) , Basophils (%) (Auto) , Differential Total Cells Counted 100, Neutrophils % (Manual) 89H, Lymphocytes % (Manual) 9L, Monocytes % (Manual) 2, Eosinophils % (Manual) 0, Basophils % ( Manual) 0, Band Neutrophils 0, Platelet Estimate Adequate, Platelet Morphology Normal, Red Blood Cell Morphology Normal, Sodium Level 140, Potassium Level 3.9 , Chloride Level 106, Carbon Dioxide Level 18L, Anion Gap 16H, Blood Urea Nitrogen 29H, Creatinine 1.9H, Estimat Glomerular Filtration Rate , Glucose Level 99#, Hemoglobin A1c 5.9, Uric Acid 6.3, Calcium Level 8.2L, Phosphorus Level 2.7, Magnesium Level 1.9, Total Bilirubin 0.5, Gamma Glutamyl Transpeptidase 39H, Aspartate Amino Transf (AST/SGOT) 19, Alanine Aminotransferase (ALT/SGPT) 19, Alkaline Phosphatase 62, Total Creatine Kinase 91, C-Reactive Protein, Quantitative 11.8H, Pro-B-Type Natriuretic Peptide 2500H , Total Protein 7.2, Albumin 3.2L, Globulin 4.0, Albumin/Globulin Ratio 0.8L, Triglycerides Level 268H, Cholesterol Level 158, LDL Cholesterol 88, HDL Cholesterol 16, Cholesterol/HDL Ratio 9.9H, Thyroid Stimulating Hormone (TSH) 2.090, Cortisol AM Sample 39.0H 01/27/17 17:38: Arterial Blood pH 7.400, Arterial Blood Partial Pressure CO2 23.5*L, Arterial Blood Partial Pressure O2 284.4H, Arterial Blood HCO3 14.5L, Arterial Blood Oxygen Saturation 99.0H, Arterial Blood Base Excess -8.4, Trell Test Positive 01/28/17 06:20: White Blood Count 12.6#H, Red Blood Count 3.56L, Hemoglobin 11.0L, Hematocrit 34.6L, Mean Corpuscular Volume 97, Mean Corpuscular Hemoglobin 31.0, Mean Corpuscular Hemoglobin Concent 31.9L, Red Cell Distribution Width 12.3, Platelet Count 240, Mean Platelet Volume 5.9L, Neutrophils (%) (Auto) 72.8, Lymphocytes (%) (Auto) 16.5L, Monocytes (%) (Auto) 8.8, Eosinophils (%) (Auto) 1.3, Basophils (%) (Auto) 0.6, Sodium Level [Pending], Potassium Level [Pending] , Chloride Level [Pending], Carbon Dioxide Level [Pending], Blood Urea Nitrogen [Pending], Creatinine [Pending], Estimat Glomerular Filtration Rate [Pending], Glucose Level [Pending], Calcium Level [Pending] Height (Feet): 5 Height (Inches): 4.00 Weight (Pounds): 140 General Appearance: confused EENT: normal ENT inspection Neck: normal alignment Cardiovascular: normal peripheral pulses, normal rate, regular rhythm Respiratory/Chest: chest wall non-tender, lungs clear, normal breath sounds Abdomen: normal bowel sounds, non tender, soft Extremities: normal inspection Edema: no edema noted Arm (L), no edema noted Arm (R), no edema noted Leg (L), no edema noted Leg (R), no edema noted Pedal (L), no edema noted Pedal (R), no edema noted Generalized Neurologic: motor weakness Skin: normal pigmentation, warm/dry SOURAV WEBB Jan 28, 2017 07:34
[2017-01-28 07:50] LABS: ANION GAP 13 (5-15); CALCIUM 7.7 mg/dL (8.6-10.2); CARBON DIOXIDE 17 mEQ/L (20-30); CHLORIDE 113 mEQ/L (98-107); CREATININE 1.9 mg/dL (0.5-0.9); HEMOLYSIS 0; POTASSIUM 3.8 mEQ/L (3.4-4.9); SODIUM 143 mEQ/L (135-145)
[2017-01-28 08:12] VITALS: BP 108/49
--- NOTE | 2017-01-28 09:31 | General Progress Note ---
Assessment/Plan Status: stable - from renal stand Status Narrative Cr lower Assessment/Plan Renal failure- Appears pre renal and dehydration- Cr down 1.9 - UTI (urinary tract infection) - h/o PPD positive - Encephalopathy - Weakness -Dementia -HypoThyroidism -HTN and DM Plan: Hydrate- Cortés- Antibiotics- Monitor renal parameters BS and BP Avoid Nephrotoxics ST eval Subjective ROS Limited/Unobtainable: No Constitutional: Reports: malaise, weakness Allergies: Coded Allergies: No Known Allergies (Unverified , 08/20/15) Objective Last 24 Hour Vital Signs Date Time Temp Pulse Resp B/P Pulse Ox O2 Delivery O2 Flow Rate FiO2 01/28/17 08:12 97.5 68 14 108/49 100 Room Air 01/28/17 07:20 87 18 Room Air 01/28/17 04:00 97.5 93 20 104/57 99 Room Air 01/28/17 00:00 98.2 98 20 103/47 97 Room Air 01/27/17 21:15 99.1 01/27/17 20:21 72 16 Room Air 01/27/17 20:00 100.1 92 20 121/57 96 Nasal Cannula 2.0 01/27/17 18:00 99.5 121 18 141/53 98 Room Air 01/27/17 15:36 98.2 109 17 127/79 98 01/27/17 12:00 109 01/27/17 12:00 97.9 109 17 115/84 98 Room Air Intake and Output 01/27/17 01/28/17 19:00 07:00 Intake Total 750 ml 750 ml Output Total 650 ml 350 ml Balance 100 ml 400 ml IV Total 750 ml 750 ml Output Urine Total 650 ml 350 ml Laboratory Tests 01/27/17 10:10: White Blood Count 7.1, Red Blood Count 4.31, Hemoglobin 13.3, Hematocrit 41.8, Mean Corpuscular Volume 97, Mean Corpuscular Hemoglobin 30.9, Mean Corpuscular Hemoglobin Concent 31.8L, Red Cell Distribution Width 12.3, Platelet Count 270, Mean Platelet Volume 6.3L, Neutrophils (%) (Auto) , Lymphocytes (%) (Auto) , Monocytes (%) (Auto) , Eosinophils (%) (Auto) , Basophils (%) (Auto) , Differential Total Cells Counted 100, Neutrophils % (Manual) 89H, Lymphocytes % (Manual) 9L, Monocytes % (Manual) 2, Eosinophils % (Manual) 0, Basophils % ( Manual) 0, Band Neutrophils 0, Platelet Estimate Adequate, Platelet Morphology Normal, Red Blood Cell Morphology Normal, Sodium Level 140, Potassium Level 3.9 , Chloride Level 106, Carbon Dioxide Level 18L, Anion Gap 16H, Blood Urea Nitrogen 29H, Creatinine 1.9H, Estimat Glomerular Filtration Rate , Glucose Level 99#, Hemoglobin A1c 5.9, Uric Acid 6.3, Calcium Level 8.2L, Phosphorus Level 2.7, Magnesium Level 1.9, Total Bilirubin 0.5, Gamma Glutamyl Transpeptidase 39H, Aspartate Amino Transf (AST/SGOT) 19, Alanine Aminotransferase (ALT/SGPT) 19, Alkaline Phosphatase 62, Total Creatine Kinase 91, C-Reactive Protein, Quantitative 11.8H, Pro-B-Type Natriuretic Peptide 2500H , Total Protein 7.2, Albumin 3.2L, Globulin 4.0, Albumin/Globulin Ratio 0.8L, Triglycerides Level 268H, Cholesterol Level 158, LDL Cholesterol 88, HDL Cholesterol 16, Cholesterol/HDL Ratio 9.9H, Thyroid Stimulating Hormone (TSH) 2.090, Cortisol AM Sample 39.0H 01/27/17 17:38: Arterial Blood pH 7.400, Arterial Blood Partial Pressure CO2 23.5*L, Arterial Blood Partial Pressure O2 284.4H, Arterial Blood HCO3 14.5L, Arterial Blood Oxygen Saturation 99.0H, Arterial Blood Base Excess -8.4, Trell Test Positive 01/28/17 06:20: White Blood Count 12.6#H, Red Blood Count 3.56L, Hemoglobin 11.0L, Hematocrit 34.6L, Mean Corpuscular Volume 97, Mean Corpuscular Hemoglobin 31.0, Mean Corpuscular Hemoglobin Concent 31.9L, Red Cell Distribution Width 12.3, Platelet Count 240, Mean Platelet Volume 5.9L, Neutrophils (%) (Auto) 72.8, Lymphocytes (%) (Auto) 16.5L, Monocytes (%) (Auto) 8.8, Eosinophils (%) (Auto) 1.3, Basophils (%) (Auto) 0.6, Sodium Level 143, Potassium Level 3.8, Chloride Level 113H, Carbon Dioxide Level 17L, Anion Gap 13, Blood Urea Nitrogen 25H, Creatinine 1.9H, Estimat Glomerular Filtration Rate , Glucose Level 79, Calcium Level 7.7L Height (Feet): 5 Height (Inches): 4.00 Weight (Pounds): 140 General Appearance: no apparent distress Cardiovascular: normal rate, other - variable Respiratory/Chest: decreased breath sounds Abdomen: soft KODI CAMARA Jan 28, 2017 09:30
[2017-01-28] MEDS: Memantine 10mg tab ORAL SCH ×2 (10:13→22:18)
[2017-01-28] MEDS: Vitamin A&D Oint 2oz Tube TOPIC SCH ×2 (10:14→22:19)
[2017-01-28] MEDS: Heparin 5000 units/ml inj SUBQ SCH ×2 (10:15→21:00)
--- NOTE | 2017-01-28 10:41 | Infectious Diseases Prog Note ---
Assessment/Plan Problems: (1) Sepsis Assessment & Plan: suspect due to UTI, with proteus morbillous, on cefepime empirically , will switch to ceftriaxon to finish total of 7 days (2) UTI (urinary tract infection) Assessment & Plan: on cefepime, await urine culture (3) SOB (shortness of breath) Assessment & Plan: rule out PE, recommend V/Q scan, and venous doppler (4) Renal insufficiency Assessment & Plan: suspect dehydration, continue IVF, avoid nephrotoxic meds, renal is consulted (5) Hypoxia Assessment & Plan: continue oxygen, recommend CT angio of the lungs (6) Diabetes mellitus Assessment & Plan: recommend tight glycemic control to keep blood glucose between 80-120 Subjective ROS Limited/Unobtainable: Yes Allergies: Coded Allergies: No Known Allergies (Unverified , 08/20/15) Subjective she was up in bed, awake, nonverbal, not in distress Objective Vital Signs Last 24 Hour Vital Signs Date Time Temp Pulse Resp B/P Pulse Ox O2 Delivery O2 Flow Rate FiO2 01/28/17 08:12 97.5 68 14 108/49 100 Room Air 01/28/17 07:20 87 18 Room Air 01/28/17 04:00 97.5 93 20 104/57 99 Room Air 01/28/17 00:00 98.2 98 20 103/47 97 Room Air 01/27/17 21:15 99.1 01/27/17 20:21 72 16 Room Air 01/27/17 20:00 100.1 92 20 121/57 96 Nasal Cannula 2.0 01/27/17 18:00 99.5 121 18 141/53 98 Room Air 01/27/17 15:36 98.2 109 17 127/79 98 01/27/17 12:00 109 01/27/17 12:00 97.9 109 17 115/84 98 Room Air Height (Feet): 5 Height (Inches): 4.00 Weight (Pounds): 140 General Appearance: WD/WN, no acute distress HEENT: normocephalic, atraumatic, anicteric, mucous membranes moist Respiratory/Chest: chest wall non-tender, lungs clear, normal breath sounds, no respiratory distress, no accessory muscle use Cardiovascular: normal peripheral pulses, normal rate, regular rhythm, no gallop/murmur, no JVD Abdomen: normal bowel sounds, soft, non tender, no organomegaly, non distended , no mass, hypoactive bowel sounds Extremities: no cyanosis, no clubbing Skin: no rash, no lesions, no ulcers Neurologic/Psychiatric: alert, oriented x 3 Lymphatic: no neck adenopathy, no groin adenopathy Microbiology Date/Time Source Procedure Growth Status 01/26/17 13:20 Blood Blood Culture - Preliminary NO GROWTH AFTER 24 HOURS Resulted 01/26/17 13:05 Blood Blood Culture - Preliminary NO GROWTH AFTER 24 HOURS Resulted 01/26/17 13:40 Urine,Clean Catch Urine Culture - Final Proteus Mirabilis Complete Laboratory Tests Test 01/27/17 17:38 01/28/17 06:20 Arterial Blood pH 7.400 (7.350-7.450) Arterial Blood Partial Pressure CO2 23.5 mmHg (35.0-45.0) *L Arterial Blood Partial Pressure O2 284.4 mmHg (75.0-100.0) H Arterial Blood HCO3 14.5 mmol/L (22.0-26.0) L Arterial Blood Oxygen Saturation 99.0 % (92.0-98.0) H Arterial Blood Base Excess -8.4 Trell Test Positive White Blood Count 12.6 K/UL (4.8-10.8) #H Red Blood Count 3.56 M/UL (4.20-5.40) L Hemoglobin 11.0 G/DL (12.0-16.0) L Hematocrit 34.6 % (37.0-47.0) L Mean Corpuscular Volume 97 FL (80-99) Mean Corpuscular Hemoglobin 31.0 PG (27.0-31.0) Mean Corpuscular Hemoglobin Concent 31.9 G/DL (32.0-36.0) L Red Cell Distribution Width 12.3 % (11.6-14.8) Platelet Count 240 K/UL (150-450) Mean Platelet Volume 5.9 FL (6.5-10.1) L Neutrophils (%) (Auto) 72.8 % (45.0-75.0) Lymphocytes (%) (Auto) 16.5 % (20.0-45.0) L Monocytes (%) (Auto) 8.8 % (1.0-10.0) Eosinophils (%) (Auto) 1.3 % (0.0-3.0) Basophils (%) (Auto) 0.6 % (0.0-2.0) Sodium Level 143 mEQ/L (135-145) Potassium Level 3.8 mEQ/L (3.4-4.9) Chloride Level 113 mEQ/L (98-107) H Carbon Dioxide Level 17 mEQ/L (20-30) L Anion Gap 13 (5-15) Blood Urea Nitrogen 25 mg/dL (7-23) H Creatinine 1.9 mg/dL (0.5-0.9) H Estimat Glomerular Filtration Rate mL/min (>60) Glucose Level 79 mg/dL (74-106) Calcium Level 7.7 mg/dL (8.6-10.2) L Current Medications Medications (Trade) Dose Ordered Sig/Odalis Route PRN Reason Start Time Stop Time Status Last Admin Dose Admin Acetaminophen (Tylenol) 650 mg Q4H PRN ORAL T>100.5 01/27/17 16:00 02/26/17 15:59 01/27/17 20:16 Albuterol/ Ipratropium (DuoNeb 0.5-3(2.5)mg/3ml) 3 ml Q4H PRN HHN Shortness of Breath 01/27/17 16:00 02/01/17 15:59 Cefepime HCl 0.5 gm/Dextrose 55 ml @ 110 mls/hr Q24H IVPB 01/27/17 18:00 02/03/17 17:59 01/27/17 18:14 Heparin Sodium (Porcine) (Heparin 5000 units/ml) 5,000 units EVERY 12 HOURS SUBQ 01/27/17 21:00 02/26/17 20:59 01/28/17 10:15 Levothyroxine Sodium (Synthroid) 100 mcg ACBREAKFAST ORAL 01/28/17 06:30 02/27/17 06:29 01/28/17 06:02 Lorazepam (Ativan 2mg/ml 1ml) 0.5 mg Q6H PRN IV For Anxiety 01/27/17 18:45 02/03/17 18:44 01/27/17 18:56 Memantine (Namenda) 10 mg Q12HR ORAL 01/27/17 21:00 02/26/17 20:59 01/28/17 10:13 Nitroglycerin (Ntg) 0.4 mg Q5M PRN SL Prn Chest Pain 01/27/17 16:00 02/26/17 15:59 Ondansetron HCl (Zofran) 4 mg Q6H PRN IVP Nausea & Vomiting 01/27/17 16:00 02/26/17 15:59 Polyethylene Glycol (Miralax) 17 gm DAILYPRN PRN ORAL Constipation 01/28/17 16:00 02/27/17 15:59 Promethazine HCl/ Codeine (Phenergan with Codeine) 5 ml Q4H PRN ORAL For Cough 01/27/17 16:00 02/26/17 15:59 Sodium Chloride 1,000 ml @ 75 mls/hr [id number] IV 01/27/17 16:00 02/26/17 15:59 01/28/17 05:28 Temazepam (Restoril) 15 mg HSPRN PRN ORAL Insomnia 01/27/17 21:00 02/03/17 20:59 Vancomycin HCl (Vanco rx to dose) 1 ea DAILY PRN MISC Per rx protocol 01/27/17 16:00 02/26/17 15:59 Vancomycin HCl/ Dextrose (Vancomycin/D5W) 275 ml @ 183.708 mls/hr Q24H IVPB 01/27/17 19:00 02/01/17 18:59 01/27/17 18:28 Vitamin A/Vitamin D (A & D Oint) 1 applic EVERY 12 HOURS TOPIC 01/27/17 21:00 02/26/17 20:59 01/28/17 10:14 Chai Monte M.D. Jan 28, 2017 10:41
[2017-01-28 11:25] VITALS: BP 135/62
--- NOTE | 2017-01-28 15:39 | Pulmonology Progress Note ---
Assessment/Plan Problems: (1) SOB (shortness of breath) (2) Severe sepsis (3) ATN (acute tubular necrosis) (4) UTI (urinary tract infection) (5) Diabetes mellitus (6) Alzheimer's dementia (7) Dementia Assessment/Plan med/surg ramirez culture IV antibiotics iv fluids check electrolytes dc planning soon all notes, meds reviewed Subjective ROS Limited/Unobtainable: No Constitutional: Reports: no symptoms Respiratory: Reports: no symptoms Cardiovascular: Reports: no symptoms Allergies: Coded Allergies: No Known Allergies (Unverified , 08/20/15) Objective Last 24 Hour Vital Signs Date Time Temp Pulse Resp B/P Pulse Ox O2 Delivery O2 Flow Rate FiO2 01/28/17 11:25 97.3 71 16 135/62 100 Room Air 01/28/17 08:12 97.5 68 14 108/49 100 Room Air 01/28/17 07:20 87 18 Room Air 01/28/17 04:00 97.5 93 20 104/57 99 Room Air 01/28/17 00:00 98.2 98 20 103/47 97 Room Air 01/27/17 21:15 99.1 01/27/17 20:21 72 16 Room Air 01/27/17 20:00 100.1 92 20 121/57 96 Nasal Cannula 2.0 01/27/17 18:00 99.5 121 18 141/53 98 Room Air Intake and Output 01/27/17 01/28/17 19:00 07:00 Intake Total 750 ml 750 ml Output Total 650 ml 350 ml Balance 100 ml 400 ml IV Total 750 ml 750 ml Output Urine Total 650 ml 350 ml General Appearance: cachetic HEENT: normocephalic, atraumatic Respiratory/Chest: chest wall non-tender, lungs clear Cardiovascular: normal peripheral pulses, normal rate Abdomen: normal bowel sounds, soft, non tender Extremities: no cyanosis, no clubbing Neurologic/Psychiatric: seed potato arranger II-XII grossly normal Lymphatic: no neck adenopathy Microbiology Date/Time Source Procedure Growth Status 01/26/17 13:20 Blood Blood Culture - Preliminary NO GROWTH AFTER 24 HOURS Resulted 01/26/17 13:05 Blood Blood Culture - Preliminary NO GROWTH AFTER 24 HOURS Resulted 01/27/17 08:58 Urine,Clean Catch Urine Culture - Preliminary NO GROWTH Resulted 01/26/17 13:40 Urine,Clean Catch Urine Culture - Final Proteus Mirabilis Complete Laboratory Tests 01/27/17 17:38: Arterial Blood pH 7.400, Arterial Blood Partial Pressure CO2 23.5*L, Arterial Blood Partial Pressure O2 284.4H, Arterial Blood HCO3 14.5L, Arterial Blood Oxygen Saturation 99.0H, Arterial Blood Base Excess -8.4, Trell Test Positive 01/28/17 06:20: White Blood Count 12.6#H, Red Blood Count 3.56L, Hemoglobin 11.0L, Hematocrit 34.6L, Mean Corpuscular Volume 97, Mean Corpuscular Hemoglobin 31.0, Mean Corpuscular Hemoglobin Concent 31.9L, Red Cell Distribution Width 12.3, Platelet Count 240, Mean Platelet Volume 5.9L, Neutrophils (%) (Auto) 72.8, Lymphocytes (%) (Auto) 16.5L, Monocytes (%) (Auto) 8.8, Eosinophils (%) (Auto) 1.3, Basophils (%) (Auto) 0.6, Sodium Level 143, Potassium Level 3.8, Chloride Level 113H, Carbon Dioxide Level 17L, Anion Gap 13, Blood Urea Nitrogen 25H, Creatinine 1.9H, Estimat Glomerular Filtration Rate , Glucose Level 79, Calcium Level 7.7L Current Medications Medications (Trade) Dose Ordered Sig/Odalis Route PRN Reason Start Time Stop Time Status Last Admin Dose Admin Acetaminophen (Tylenol) 650 mg Q4H PRN ORAL T>100.5 01/27/17 16:00 02/26/17 15:59 01/27/17 20:16 Albuterol/ Ipratropium (DuoNeb 0.5-3(2.5)mg/3ml) 3 ml Q4H PRN HHN Shortness of Breath 01/27/17 16:00 02/01/17 15:59 Cefepime HCl 0.5 gm/Dextrose 55 ml @ 110 mls/hr Q24H IVPB 01/27/17 18:00 02/03/17 17:59 01/27/17 18:14 Heparin Sodium (Porcine) (Heparin 5000 units/ml) 5,000 units EVERY 12 HOURS SUBQ 01/27/17 21:00 02/26/17 20:59 01/28/17 10:15 Levothyroxine Sodium (Synthroid) 100 mcg ACBREAKFAST ORAL 01/28/17 06:30 02/27/17 06:29 01/28/17 06:02 Lorazepam (Ativan 2mg/ml 1ml) 0.5 mg Q6H PRN IV For Anxiety 01/27/17 18:45 02/03/17 18:44 01/27/17 18:56 Memantine (Namenda) 10 mg Q12HR ORAL 01/27/17 21:00 02/26/17 20:59 01/28/17 10:13 Nitroglycerin (Ntg) 0.4 mg Q5M PRN SL Prn Chest Pain 01/27/17 16:00 02/26/17 15:59 Ondansetron HCl (Zofran) 4 mg Q6H PRN IVP Nausea & Vomiting 01/27/17 16:00 02/26/17 15:59 Polyethylene Glycol (Miralax) 17 gm DAILYPRN PRN ORAL Constipation 01/28/17 16:00 02/27/17 15:59 Promethazine HCl/ Codeine (Phenergan with Codeine) 5 ml Q4H PRN ORAL For Cough 01/27/17 16:00 02/26/17 15:59 Sodium Chloride 1,000 ml @ 75 mls/hr [id number] IV 01/27/17 16:00 02/26/17 15:59 01/28/17 05:28 Temazepam (Restoril) 15 mg HSPRN PRN ORAL Insomnia 01/27/17 21:00 02/03/17 20:59 Vancomycin HCl (Vanco rx to dose) 1 ea DAILY PRN MISC Per rx protocol 01/27/17 16:00 02/26/17 15:59 Vancomycin HCl/ Dextrose (Vancomycin/D5W) 275 ml @ 183.708 mls/hr Q24H IVPB 01/27/17 19:00 02/01/17 18:59 01/27/17 18:28 Vitamin A/Vitamin D (A & D Oint) 1 applic EVERY 12 HOURS TOPIC 01/27/17 21:00 02/26/17 20:59 01/28/17 10:14 OCTAVIA GORMAN Jan 28, 2017 15:39
[2017-01-28] MEDS ORDERED: Miralax 17gm pkt ORAL PRN (16:00)
[2017-01-28 16:13] VITALS: BP 140/71
[2017-01-28] MEDS: Cefepime HCl 0.5 GM in D5W 55 ML IVPB SCH (18:18)
[2017-01-28] MEDS: Vancomycin 1 GM in D5W 275 ML IVPB SCH (19:02)
[2017-01-28 20:00] VITALS: BP 146/86
[2017-01-29] VITALS: BP 137/79
[2017-01-29 04:00] VITALS: BP 144/72
[2017-01-29 08:00] VITALS: BP 146/81
--- NOTE | 2017-01-29 08:38 | Diagnostic Imaging Report ---
Indications: Flank pain, abnormal renal function tests Technique: Transabdominal real-time grayscale and duplex Doppler imaging of the kidneys, retroperitoneum, and urinary bladder was performed Findings: Comparison: None Right kidney measures 10.8 cm in length. Mild diffuse cortical thinning. Normal cortical echogenicity. Multiple cortical circumscribed anechoic foci. Multiple echogenic shadowing foci in sinus. Suggestion of associated mild collecting system dilation.. No additional focal lesions, or obvious perinephric abnormalities. Left kidney measures 11.6 cm in length. Mild diffuse cortical thinning. Normal cortical echogenicity. Multiple cortical circumscribed anechoic foci. Multiple echogenic shadowing foci in sinus... No additional focal lesions, hydronephrosis, or obvious perinephric abnormalities. The intrahepatic portion of inferior vena cava is patent and normal caliber. The urinary bladder is collapsed around a Cortés catheter. IMPRESSION: Mild renal cortical atrophy likely senescent Bilateral cortical cysts Bilateral nephrolithiasis Questionable mild right hydronephrosis-query obstruction
[2017-01-29 08:55] LABS: BASOPHILS % (AUTO) 0.8 % (0.0-2.0); EOSINOPHILS % (AUTO) 2.7 % (0.0-3.0); LYMPHOCYTES % (AUTO) 22.7 % (20.0-45.0); MEAN CORPUSCULAR HEMOGLOBIN 31.4 PG (27.0-31.0); MEAN CORPUSCULAR HGB CONC 32.7 G/DL (32.0-36.0); MEAN CORPUSCULAR VOLUME 96 FL (80-99); MEAN PLATELET VOLUME 5.7 FL (6.5-10.1); MONOCYTES % (AUTO) 7.1 % (1.0-10.0); NEUTROPHILS % (AUTO) 66.7 % (45.0-75.0); PLATELET COUNT 229 K/UL (150-450); RED CELL DISTRIBUTION WIDTH 12.6 % (11.6-14.8); WHITE BLOOD COUNT 10.1 K/UL (4.8-10.8)
[2017-01-29] MEDS: Heparin 5000 units/ml inj SUBQ SCH ×2 (09:13→21:00)
[2017-01-29] MEDS: Memantine 10mg tab ORAL SCH ×3 (09:13→21:43)
[2017-01-29] MEDS: Vitamin A&D Oint 2oz Tube TOPIC SCH ×2 (09:14→21:00)
[2017-01-29 09:17] LABS: ALANINE AMINOTRANSFERASE 11 U/L (3-33); ANION GAP 10 (5-15); ASPARTATE AMINO TRANSFERASE 17 U/L (5-40); BILIRUBIN,DIRECT 0.1 mg/dL (0.1-0.3); CALCIUM 7.2 mg/dL (8.6-10.2); CARBON DIOXIDE 16 mEQ/L (20-30); CHLORIDE 111 mEQ/L (98-107); CREATININE 1.6 mg/dL (0.5-0.9); CRP QUANT 9.7 mg/dL (< 0.5); HEMOLYSIS 28; MAGNESIUM 1.9 mg/dL (1.7-2.5); PHOSPHORUS 2.2 mg/dL (2.5-4.8); POTASSIUM 3.8 mEQ/L (3.4-4.9); SODIUM 137 mEQ/L (135-145); TOTAL PROTEIN 5.5 g/dL (6.6-8.7); URIC ACID 5.8 mg/dL (3.0-7.5)
[2017-01-29 09:22] LABS: ANION GAP 10 (5-15); CALCIUM 7.2 mg/dL (8.6-10.2); CARBON DIOXIDE 16 mEQ/L (20-30); CHLORIDE 111 mEQ/L (98-107); CREATININE 1.6 mg/dL (0.5-0.9); HEMOLYSIS 28; POTASSIUM 3.8 mEQ/L (3.4-4.9); SODIUM 137 mEQ/L (135-145)
--- NOTE | 2017-01-29 10:45 | Progress Note ---
DATE: 01/27/2017 SUBJECTIVE: The patient has shortness of breath, confusion, and altered mental status. I am continuing treatment with Namenda 10 mg twice a day to prevent any further decline in her cognition. Chart reviewed and discussed with staff. Seen and assessed at the bedside. Cira Dorado M.D. DR: CHAPITO JOB#: [id number] CC:
--- NOTE | 2017-01-29 10:45 | Progress Note ---
DATE: 01/29/2017 SUBJECTIVE: This is an 89-year-old female with shortness of breath, altered mental status, and confusion. PLAN: Plan to treat her with Aricept 5 mg nightly and continue Namenda 10 mg twice a day. Chart reviewed and discussed with staff. Seen and assessed at the bedside. Cira oDrado M.D. DR: JOY JOB#: [id number] CC:
--- NOTE | 2017-01-29 10:45 | Progress Note ---
DATE: 01/28/2017 SUBJECTIVE: The patient has shortness of breath and confusion. PLAN: I am going to continue treatment with Namenda 10 mg twice a day for further decline any cognition. Chart reviewed and discussed with staff. Seen and assessed at the bedside. Cira Dorado M.D. DR: JOY JOB#: [id number] CC:
--- NOTE | 2017-01-29 11:15 | General Progress Note ---
Assessment/Plan Status: stable Status Narrative Cr 1.6 unchanged Assessment/Plan Renal failure- Appears pre renal and dehydration- Cr down 1.6 - UTI (urinary tract infection) - h/o PPD positive - Encephalopathy - Weakness -Dementia -HypoThyroidism -HTN and DM Plan: Hydrate- DC Cortés- Antibiotics- Monitor renal parameters BS and BP Avoid Nephrotoxics ST eval Subjective ROS Limited/Unobtainable: No Constitutional: Reports: malaise Allergies: Coded Allergies: No Known Allergies (Unverified , 08/20/15) Objective Last 24 Hour Vital Signs Date Time Temp Pulse Resp B/P Pulse Ox O2 Delivery O2 Flow Rate FiO2 01/29/17 08:00 97.7 62 146/81 Room Air 01/29/17 07:50 59 16 Room Air 01/29/17 04:00 97.8 81 20 144/72 95 Room Air 01/29/17 03:44 78 16 Room Air 21 01/29/17 00:00 97.7 79 20 137/79 95 Room Air 01/28/17 20:00 97.9 74 20 146/86 94 Room Air 01/28/17 16:13 97.5 87 16 140/71 100 Room Air 01/28/17 11:25 97.3 71 16 135/62 100 Room Air Intake and Output 01/28/17 01/29/17 19:00 07:00 Intake Total 1680 ml 1079.416 ml Output Total 450 ml 550 ml Balance 1230 ml 529.416 ml Intake Oral 800 ml IV Total 880 ml 1079.416 ml Output Urine Total 450 ml 550 ml # Bowel Movements 1 Laboratory Tests 01/29/17 08:30: White Blood Count 10.1, Red Blood Count 3.70L, Hemoglobin 11.6L, Hematocrit 35.6L, Mean Corpuscular Volume 96, Mean Corpuscular Hemoglobin 31.4H, Mean Corpuscular Hemoglobin Concent 32.7, Red Cell Distribution Width 12.6, Platelet Count 229, Mean Platelet Volume 5.7L, Neutrophils (%) (Auto) 66.7, Lymphocytes ( %) (Auto) 22.7, Monocytes (%) (Auto) 7.1, Eosinophils (%) (Auto) 2.7, Basophils (%) (Auto) 0.8, Sodium Level 137, Potassium Level 3.8, Chloride Level 111H, Carbon Dioxide Level 16L, Anion Gap 10, Blood Urea Nitrogen 16, Creatinine 1.6H , Estimat Glomerular Filtration Rate , Glucose Level 99, Uric Acid 5.8, Calcium Level 7.2L, Phosphorus Level 2.2L, Magnesium Level 1.9, Total Bilirubin < 0.2, Direct Bilirubin 0.1, Aspartate Amino Transf (AST/SGOT) 17, Alanine Aminotransferase (ALT/SGPT) 11, Alkaline Phosphatase 56, C-Reactive Protein, Quantitative 9.7H, Pro-B-Type Natriuretic Peptide 4488H, Total Protein 5.5L, Albumin 2.1L Height (Feet): 5 Height (Inches): 4.00 Weight (Pounds): 140 General Appearance: no apparent distress Objective no change in PE KODI CAMARA Jan 29, 2017 11:15
[2017-01-29 12:00] VITALS: BP 151/84
--- NOTE | 2017-01-29 12:45 | Consultation ---
DATE OF CONSULTATION: 01/26/2017 HISTORY OF PRESENT ILLNESS: The patient was admitted secondary to shortness of breath. However, she also has hypoxia, weakness, altered mental status, came in from [facility], but she is confused and disorganized. The cognition has declined below baseline as well there was a consultation requested by this patient. MEDICAL HISTORY: Hypoxia, weakness, and Alzheimer's disease. ALLERGIES: She has had no known drug allergies. SOCIAL HISTORY: The patient is financially supported by [employer] and Medicare . SUBSTANCE ABUSE HISTORY: Denies smoking or alcohol use. FAMILY HISTORY: Denies. PSYCHIATRIC HISTORY: Paranoid schizophrenia, rule out dementia with psychosis, and rule out further dementia. MENTAL STATUS EXAMINATION: This is an 89-year-old female with psychomotor retardation. Mood is depressed. Affect is guarded and restricted. Thought process is disorganized and illogical. suicidal or homicidal thoughts. Insight and judgment is poor. DIAGNOSIS: Major depression with psychotic features, rule out further dementia. PLAN: Plan for this patient, treat her with Namenda 5 mg twice a day and encouraged her to interact appropriately with staff and other patients. Chart reviewed and discussed with staff. Seen and assessed at the bedside. Cira Dorado M.D. DR: CHAPITO JOB#: [id number] CC:
--- NOTE | 2017-01-29 14:24 | Pulmonology Progress Note ---
Assessment/Plan Problems: (1) SOB (shortness of breath) (2) Severe sepsis (3) ATN (acute tubular necrosis) (4) UTI (urinary tract infection) (5) Diabetes mellitus (6) Alzheimer's dementia (7) Dementia Assessment/Plan swallow study done, result reviewee med/surg ramirez culture IV antibiotics iv fluids check electrolytes dvt prophylaxis renal work up in progress Subjective ROS Limited/Unobtainable: No Constitutional: Reports: no symptoms HEENT: Repors: no symptoms Respiratory: Reports: no symptoms Allergies: Coded Allergies: No Known Allergies (Unverified , 08/20/15) Objective Last 24 Hour Vital Signs Date Time Temp Pulse Resp B/P Pulse Ox O2 Delivery O2 Flow Rate FiO2 01/29/17 12:00 96.8 47 20 151/84 93 Room Air 01/29/17 08:00 97.7 62 146/81 Room Air 01/29/17 07:50 59 16 Room Air 01/29/17 04:00 97.8 81 20 144/72 95 Room Air 01/29/17 03:44 78 16 Room Air 21 01/29/17 00:00 97.7 79 20 137/79 95 Room Air 01/28/17 20:00 97.9 74 20 146/86 94 Room Air 01/28/17 16:13 97.5 87 16 140/71 100 Room Air Intake and Output 01/28/17 01/29/17 19:00 07:00 Intake Total 1680 ml 1079.416 ml Output Total 450 ml 550 ml Balance 1230 ml 529.416 ml Intake Oral 800 ml IV Total 880 ml 1079.416 ml Output Urine Total 450 ml 550 ml # Bowel Movements 1 General Appearance: WD/WN, cachetic HEENT: normocephalic, atraumatic Respiratory/Chest: chest wall non-tender, lungs clear Breasts: no masses Cardiovascular: normal peripheral pulses Abdomen: normal bowel sounds, soft, non tender Genitourinary: normal external genitalia Extremities: no cyanosis Skin: no rash Microbiology Date/Time Source Procedure Growth Status 01/26/17 18:30 Nasal Nares MRSA Culture - Final NO METHICILLIN RESISTANT STAPH AUREUS... Complete 01/27/17 08:58 Urine,Clean Catch Urine Culture - Preliminary Gram Negative Bacillus 1 Resulted 01/26/17 18:30 Rectum VRE Culture - Final Enterococcus Faecalis - Vre Complete Laboratory Tests 01/29/17 08:30: White Blood Count 10.1, Red Blood Count 3.70L, Hemoglobin 11.6L, Hematocrit 35.6L, Mean Corpuscular Volume 96, Mean Corpuscular Hemoglobin 31.4H, Mean Corpuscular Hemoglobin Concent 32.7, Red Cell Distribution Width 12.6, Platelet Count 229, Mean Platelet Volume 5.7L, Neutrophils (%) (Auto) 66.7, Lymphocytes ( %) (Auto) 22.7, Monocytes (%) (Auto) 7.1, Eosinophils (%) (Auto) 2.7, Basophils (%) (Auto) 0.8, Sodium Level 137, Potassium Level 3.8, Chloride Level 111H, Carbon Dioxide Level 16L, Anion Gap 10, Blood Urea Nitrogen 16, Creatinine 1.6H , Estimat Glomerular Filtration Rate , Glucose Level 99, Uric Acid 5.8, Calcium Level 7.2L, Phosphorus Level 2.2L, Magnesium Level 1.9, Total Bilirubin < 0.2, Direct Bilirubin 0.1, Aspartate Amino Transf (AST/SGOT) 17, Alanine Aminotransferase (ALT/SGPT) 11, Alkaline Phosphatase 56, C-Reactive Protein, Quantitative 9.7H, Pro-B-Type Natriuretic Peptide 4488H, Total Protein 5.5L, Albumin 2.1L Current Medications Medications (Trade) Dose Ordered Sig/Odalis Route PRN Reason Start Time Stop Time Status Last Admin Dose Admin Acetaminophen (Tylenol) 650 mg Q4H PRN ORAL T>100.5 01/27/17 16:00 02/26/17 15:59 01/27/17 20:16 Albuterol/ Ipratropium (DuoNeb 0.5-3(2.5)mg/3ml) 3 ml Q4H PRN HHN Shortness of Breath 01/27/17 16:00 02/01/17 15:59 Cefepime HCl 0.5 gm/Dextrose 55 ml @ 110 mls/hr Q24H IVPB 01/27/17 18:00 02/03/17 17:59 01/28/17 18:18 Donepezil HCl (Aricept) 5 mg QHS ORAL 01/29/17 21:00 02/28/17 20:59 Heparin Sodium (Porcine) (Heparin 5000 units/ml) 5,000 units EVERY 12 HOURS SUBQ 01/27/17 21:00 02/26/17 20:59 01/29/17 09:13 Levothyroxine Sodium (Synthroid) 100 mcg ACBREAKFAST ORAL 01/28/17 06:30 02/27/17 06:29 01/29/17 06:05 Lorazepam (Ativan 2mg/ml 1ml) 0.5 mg Q6H PRN IV For Anxiety 01/27/17 18:45 02/03/17 18:44 01/27/17 18:56 Memantine (Namenda) 10 mg Q12HR ORAL 01/27/17 21:00 02/26/17 20:59 01/29/17 09:13 Nitroglycerin (Ntg) 0.4 mg Q5M PRN SL Prn Chest Pain 01/27/17 16:00 02/26/17 15:59 Ondansetron HCl (Zofran) 4 mg Q6H PRN IVP Nausea & Vomiting 01/27/17 16:00 02/26/17 15:59 Polyethylene Glycol (Miralax) 17 gm DAILYPRN PRN ORAL Constipation 01/28/17 16:00 02/27/17 15:59 Promethazine HCl/ Codeine (Phenergan with Codeine) 5 ml Q4H PRN ORAL For Cough 01/27/17 16:00 02/26/17 15:59 Sodium Chloride 1,000 ml @ 75 mls/hr [id number] IV 01/27/17 16:00 02/26/17 15:59 01/29/17 09:14 Temazepam (Restoril) 15 mg HSPRN PRN ORAL Insomnia 01/27/17 21:00 02/03/17 20:59 Vancomycin HCl (Vanco rx to dose) 1 ea DAILY PRN MISC Per rx protocol 01/27/17 16:00 02/26/17 15:59 Vancomycin HCl/ Dextrose (Vancomycin/D5W) 275 ml @ 183.708 mls/hr Q24H IVPB 01/27/17 19:00 02/01/17 18:59 01/28/17 19:02 Vitamin A/Vitamin D (A & D Oint) 1 applic EVERY 12 HOURS TOPIC 01/27/17 21:00 02/26/17 20:59 01/29/17 09:14 OCTAVIA GORMAN Jan 29, 2017 14:24
--- NOTE | 2017-01-29 15:17 | General Progress Note ---
Assessment/Plan Problem List: (1) Altered level of consciousness ICD Codes: R40.4 - Transient alteration of awareness SNOMED: 1619469 (2) Weakness ICD Codes: R53.1 - Weakness SNOMED: 18932671 (3) Encephalopathy ICD Codes: G93.40 - Encephalopathy, unspecified SNOMED: 31379695, 629784097 (4) Alzheimer's dementia ICD Codes: G30.9 - Alzheimer's disease, unspecified SNOMED: 25974851 (5) Renal insufficiency ICD Codes: N28.9 - Disorder of kidney and ureter, unspecified; R65.20 - Severe sepsis without septic shock SNOMED: 136952062, 434144493 (6) UTI (urinary tract infection) ICD Codes: N39.0 - Urinary tract infection, site not specified SNOMED: 84725543 Qualifiers: Qualified Codes: N39.0 - Urinary tract infection, site not specified (7) Sepsis ICD Codes: A41.9 - Sepsis, unspecified organism SNOMED: 51941429 (8) Hypoxia ICD Codes: R09.02 - Hypoxemia SNOMED: 57312221, 008301598 Status: stable, progressing, tolerating diet Assessment/Plan ot pt diet abx dc to snf Subjective Constitutional: Reports: weakness Allergies: Coded Allergies: No Known Allergies (Unverified , 08/20/15) All Systems: reviewed and negative except above Subjective confused sl agitated Objective Last 24 Hour Vital Signs Date Time Temp Pulse Resp B/P Pulse Ox O2 Delivery O2 Flow Rate FiO2 01/29/17 12:00 96.8 47 20 151/84 93 Room Air 01/29/17 08:00 97.7 62 146/81 Room Air 01/29/17 07:50 59 16 Room Air 01/29/17 04:00 97.8 81 20 144/72 95 Room Air 01/29/17 03:44 78 16 Room Air 01/29/17 00:00 97.7 79 20 137/79 95 Room Air 01/28/17 20:00 97.9 74 20 146/86 94 Room Air 01/28/17 16:13 97.5 87 16 140/71 100 Room Air Intake and Output 01/28/17 01/29/17 19:00 07:00 Intake Total 1680 ml 1079.416 ml Output Total 450 ml 550 ml Balance 1230 ml 529.416 ml Intake Oral 800 ml IV Total 880 ml 1079.416 ml Output Urine Total 450 ml 550 ml # Bowel Movements 1 Laboratory Tests 01/29/17 08:30: White Blood Count 10.1, Red Blood Count 3.70L, Hemoglobin 11.6L, Hematocrit 35.6L, Mean Corpuscular Volume 96, Mean Corpuscular Hemoglobin 31.4H, Mean Corpuscular Hemoglobin Concent 32.7, Red Cell Distribution Width 12.6, Platelet Count 229, Mean Platelet Volume 5.7L, Neutrophils (%) (Auto) 66.7, Lymphocytes ( %) (Auto) 22.7, Monocytes (%) (Auto) 7.1, Eosinophils (%) (Auto) 2.7, Basophils (%) (Auto) 0.8, Sodium Level 137, Potassium Level 3.8, Chloride Level 111H, Carbon Dioxide Level 16L, Anion Gap 10, Blood Urea Nitrogen 16, Creatinine 1.6H , Estimat Glomerular Filtration Rate , Glucose Level 99, Uric Acid 5.8, Calcium Level 7.2L, Phosphorus Level 2.2L, Magnesium Level 1.9, Total Bilirubin < 0.2, Direct Bilirubin 0.1, Aspartate Amino Transf (AST/SGOT) 17, Alanine Aminotransferase (ALT/SGPT) 11, Alkaline Phosphatase 56, C-Reactive Protein, Quantitative 9.7H, Pro-B-Type Natriuretic Peptide 4488H, Total Protein 5.5L, Albumin 2.1L Height (Feet): 5 Height (Inches): 4.00 Weight (Pounds): 140 General Appearance: lethargic EENT: normal ENT inspection Neck: normal alignment Cardiovascular: normal peripheral pulses, normal rate, regular rhythm Respiratory/Chest: chest wall non-tender, lungs clear, normal breath sounds Abdomen: normal bowel sounds, non tender, soft Extremities: normal inspection Edema: no edema noted Arm (L), no edema noted Arm (R), no edema noted Leg (L), no edema noted Leg (R), no edema noted Pedal (L), no edema noted Pedal (R), no edema noted Generalized Neurologic: motor weakness Skin: normal pigmentation, warm/dry SOURAV WEBB Jan 29, 2017 15:17
--- NOTE | 2017-01-29 15:27 | Infectious Diseases Prog Note ---
Assessment/Plan Problems: (1) Sepsis Assessment & Plan: suspect due to UTI, with proteus morbillous, on ceftriaxon to finish total of 7 days (2) UTI (urinary tract infection) Assessment & Plan: on ceftriaxon to finish total of 7 days (3) SOB (shortness of breath) Assessment & Plan: rule out PE, recommend V/Q scan, and venous doppler (4) Renal insufficiency Assessment & Plan: suspect dehydration, continue IVF, avoid nephrotoxic meds, renal is consulted (5) Hypoxia Assessment & Plan: continue oxygen, recommend CT angio of the lungs (6) Diabetes mellitus Assessment & Plan: recommend tight glycemic control to keep blood glucose between 80-120 Subjective ROS Limited/Unobtainable: Yes Allergies: Coded Allergies: No Known Allergies (Unverified , 08/20/15) Subjective she was up in bed, awake, nonverbal, not in distress Objective Vital Signs Last 24 Hour Vital Signs Date Time Temp Pulse Resp B/P Pulse Ox O2 Delivery O2 Flow Rate FiO2 01/29/17 12:00 96.8 47 20 151/84 93 Room Air 01/29/17 08:00 97.7 62 146/81 Room Air 01/29/17 07:50 59 16 Room Air 21 01/29/17 04:00 97.8 81 20 144/72 95 Room Air 01/29/17 03:44 78 16 Room Air 21 01/29/17 00:00 97.7 79 20 137/79 95 Room Air 01/28/17 20:00 97.9 74 20 146/86 94 Room Air 01/28/17 16:13 97.5 87 16 140/71 100 Room Air Height (Feet): 5 Height (Inches): 4.00 Weight (Pounds): 140 General Appearance: WD/WN, no acute distress HEENT: normocephalic, atraumatic, anicteric, mucous membranes moist, no JVD Respiratory/Chest: chest wall non-tender, lungs clear, normal breath sounds, no respiratory distress, no accessory muscle use Cardiovascular: normal peripheral pulses, normal rate, regular rhythm, no gallop/murmur, no JVD Abdomen: normal bowel sounds, soft, non tender, no organomegaly, non distended , no mass Extremities: no cyanosis, no clubbing Skin: no rash, no lesions Lymphatic: no neck adenopathy, no groin adenopathy Musculoskeletal: normal muscle bulk Microbiology Date/Time Source Procedure Growth Status 01/26/17 18:30 Nasal Nares MRSA Culture - Final NO METHICILLIN RESISTANT STAPH AUREUS... Complete 01/27/17 08:58 Urine,Clean Catch Urine Culture - Preliminary Gram Negative Bacillus 1 Resulted 01/26/17 18:30 Rectum VRE Culture - Final Enterococcus Faecalis - Vre Complete Laboratory Tests Test 01/29/17 08:30 White Blood Count 10.1 K/UL (4.8-10.8) Red Blood Count 3.70 M/UL (4.20-5.40) L Hemoglobin 11.6 G/DL (12.0-16.0) L Hematocrit 35.6 % (37.0-47.0) L Mean Corpuscular Volume 96 FL (80-99) Mean Corpuscular Hemoglobin 31.4 PG (27.0-31.0) H Mean Corpuscular Hemoglobin Concent 32.7 G/DL (32.0-36.0) Red Cell Distribution Width 12.6 % (11.6-14.8) Platelet Count 229 K/UL (150-450) Mean Platelet Volume 5.7 FL (6.5-10.1) L Neutrophils (%) (Auto) 66.7 % (45.0-75.0) Lymphocytes (%) (Auto) 22.7 % (20.0-45.0) Monocytes (%) (Auto) 7.1 % (1.0-10.0) Eosinophils (%) (Auto) 2.7 % (0.0-3.0) Basophils (%) (Auto) 0.8 % (0.0-2.0) Sodium Level 137 mEQ/L (135-145) Potassium Level 3.8 mEQ/L (3.4-4.9) Chloride Level 111 mEQ/L (98-107) H Carbon Dioxide Level 16 mEQ/L (20-30) L Anion Gap 10 (5-15) Blood Urea Nitrogen 16 mg/dL (7-23) Creatinine 1.6 mg/dL (0.5-0.9) H Estimat Glomerular Filtration Rate mL/min (>60) Glucose Level 99 mg/dL (74-106) Uric Acid 5.8 mg/dL (3.0-7.5) Calcium Level 7.2 mg/dL (8.6-10.2) L Phosphorus Level 2.2 mg/dL (2.5-4.8) L Magnesium Level 1.9 mg/dL (1.7-2.5) Total Bilirubin < 0.2 mg/dL (0.0-1.2) Direct Bilirubin 0.1 mg/dL (0.1-0.3) Aspartate Amino Transf (AST/SGOT) 17 U/L (5-40) Alanine Aminotransferase (ALT/SGPT) 11 U/L (3-33) Alkaline Phosphatase 56 U/L (35-104) C-Reactive Protein, Quantitative 9.7 mg/dL (< 0.5) H Pro-B-Type Natriuretic Peptide 4488 pg/mL (0-450) H Total Protein 5.5 g/dL (6.6-8.7) L Albumin 2.1 g/dL (3.5-5.2) L Current Medications Medications (Trade) Dose Ordered Sig/Odalis Route PRN Reason Start Time Stop Time Status Last Admin Dose Admin Acetaminophen (Tylenol) 650 mg Q4H PRN ORAL T>100.5 01/27/17 16:00 02/26/17 15:59 01/27/17 20:16 Albuterol/ Ipratropium (DuoNeb 0.5-3(2.5)mg/3ml) 3 ml Q4H PRN HHN Shortness of Breath 01/27/17 16:00 02/01/17 15:59 Cefepime HCl 0.5 gm/Dextrose 55 ml @ 110 mls/hr Q24H IVPB 01/27/17 18:00 02/03/17 17:59 01/28/17 18:18 Donepezil HCl (Aricept) 5 mg QHS ORAL 01/29/17 21:00 02/28/17 20:59 Heparin Sodium (Porcine) (Heparin 5000 units/ml) 5,000 units EVERY 12 HOURS SUBQ 01/27/17 21:00 02/26/17 20:59 01/29/17 09:13 Levothyroxine Sodium (Synthroid) 100 mcg ACBREAKFAST ORAL 01/28/17 06:30 02/27/17 06:29 01/29/17 06:05 Lorazepam (Ativan 2mg/ml 1ml) 0.5 mg Q6H PRN IV For Anxiety 01/27/17 18:45 02/03/17 18:44 01/27/17 18:56 Memantine (Namenda) 10 mg Q12HR ORAL 01/27/17 21:00 02/26/17 20:59 01/29/17 09:13 Nitroglycerin (Ntg) 0.4 mg Q5M PRN SL Prn Chest Pain 01/27/17 16:00 02/26/17 15:59 Ondansetron HCl (Zofran) 4 mg Q6H PRN IVP Nausea & Vomiting 01/27/17 16:00 02/26/17 15:59 Polyethylene Glycol (Miralax) 17 gm DAILYPRN PRN ORAL Constipation 01/28/17 16:00 02/27/17 15:59 Promethazine HCl/ Codeine (Phenergan with Codeine) 5 ml Q4H PRN ORAL For Cough 01/27/17 16:00 02/26/17 15:59 Sodium Chloride 1,000 ml @ 75 mls/hr [id number] IV 01/27/17 16:00 02/26/17 15:59 01/29/17 09:14 Temazepam (Restoril) 15 mg HSPRN PRN ORAL Insomnia 01/27/17 21:00 02/03/17 20:59 Vancomycin HCl (Vanco rx to dose) 1 ea DAILY PRN MISC Per rx protocol 01/27/17 16:00 02/26/17 15:59 Vancomycin HCl/ Dextrose (Vancomycin/D5W) 275 ml @ 183.708 mls/hr Q24H IVPB 01/27/17 19:00 02/01/17 18:59 01/28/17 19:02 Vitamin A/Vitamin D (A & D Oint) 1 applic EVERY 12 HOURS TOPIC 01/27/17 21:00 02/26/17 20:59 01/29/17 09:14 Chai Monte M.D. Jan 29, 2017 15:27
[2017-01-29 16:00] VITALS: BP 128/65
[2017-01-29] MEDS ORDERED: cefTRIAXone 1 GM in D5W 55 ML IVPB SCH (17:00)
[2017-01-29] MEDS ORDERED: LEVAQUIN250 M1 ORAL (18:50)
[2017-01-29] MEDS: Vancomycin 1 GM in D5W 275 ML IVPB SCH (19:00)
[2017-01-29 19:36] VITALS: BP 155/96
[2017-01-29] MEDS ORDERED: ARICEPT5 MG ORAL (20:17)
[2017-01-29] MEDS ORDERED: ZOFRAN 4 MG4 MG/2 ML IV (20:36)
[2017-01-29] MEDS ORDERED: TEMAZEPAM15 MG ORAL (20:36)
[2017-01-29] MEDS ORDERED: HEPARIN SO5000 UNIT2 SUBQ (20:36)
[2017-01-29] MEDS ORDERED: MIRALAX17 G2 ORAL (20:36)
[2017-01-29] MEDS ORDERED: PROMETHAZINE-C118 M1 ORAL (20:36)
[2017-01-29] MEDS ORDERED: DUONEB 0.5-3(2.53 ML HHN (20:36)
[2017-01-29] MEDS ORDERED: ATIVAN0.5 MG ORAL (20:36)
[2017-01-29] MEDS ORDERED: NITROGLYCERIN0.4 MG SL (20:36)
[2017-01-29] MEDS ORDERED: A & D OINT1 APPLI1 (20:36)
[2017-01-29] MEDS ORDERED: Donepezil 5mg Tab ORAL SCH (21:00)
--- NOTE | 2017-01-30 07:26 | Discharge Summary ---
Discharge Summary Hospital Course Date of Admission Jan 26, 2017 at 16:06 Date of Discharge Jan 29, 2017 at 22:10 Admitting Diagnosis SOB/hypoxia HPI Ayleen Em is a 89 year old female who was admitted on Jan 26, 2017 at 16: 06 for Shortness Of Breath,Hypoxia Hospital Course dc summary#[id number] Discharge Medications Continued Medications: Acetaminophen* (Acetaminophen 325MG Tablet*) 325 Mg Tablet 650 MG ORAL Q4H, TAB Codeine/Promethazine Hcl* (Promethazine-Codeine Syrup*) 118 Ml Syrup 5 ML ORAL Q4H PRN for For Cough, ML 0 Refills Donepezil Hcl* (Aricept*) 5 Mg Tablet 5 MG ORAL HS, TAB Heparin Sod (Porcine) (Heparin Sodium*) 5 000/1 Ml Vial 5000 UNITS SUBQ EVERY 12 HOURS, VIAL Ipratropium/Albuterol Sulfate (DuoNeb 0.5-3(2.5)mg/3ml) 3 Ml Ampul.neb 3 ML HHN EVERY 4 HOURS PRN for Shortness of Breath, EA Levofloxacin* (Levaquin*) 250 Mg Tablet 250 MG ORAL DAILY, #5 TAB Levothyroxine Sodium* (Synthroid*) 100 Mcg Tablet 100 MCG ORAL DAILY, TAB Take in the morning on an empty stomach, at least 30 minutes before food. Lorazepam* (Ativan*) 0.5 Mg Tablet 0.5 MG ORAL EVERY 6 HOURS PRN for Agitation, TAB Memantine Hcl* (Namenda*) 10 Mg Tablet 10 MG ORAL DAILY, TAB Nitroglycerin (Nitroglycerin) 0.4 Mg Tab.subl 0.4 MG SL PRN for Prn Chest Pain, TAB every 5 mins. x3 doses Ondansetron* (Zofran*) 4 Mg/2 Ml Vial 4 MG IV Q6H PRN for Nausea & Vomiting, VIAL Polyethylene Glycol 3350* (Miralax*) 17 Gm Powd.pack 17 GM ORAL DAILY PRN for Constipation, PACKET Temazepam (Temazepam*) 15 Mg Capsule 15 MG ORAL BEDTIME PRN for Insomnia, #30 CAP 0 Refills Vitamin A & D (Vitamin A & D Ointment) 56.7 Gm Oint...g. EVERY 12 HOURS Discharge Condition Upon Discharge: stable Discharge Disposition Patient was discharged to SNF/Subacute Facility(03) Discharge Diagnoses: Discharge Instructions Discharge Instructions Special Instructions I have been assigned to complete a D/C Summary on this account. I was not involved in the patient management Danika Lee NP (Vanchtein) Jan 30, 2017 07:26
--- NOTE | 2017-01-30 15:16 | Discharge Summary 2 SIG ---
DATE OF ADMISSION: 01/26/2017 DATE OF DISCHARGE: 01/29/2017 REASON FOR ADMISSION: 89 years old female with history of diabetes, hypertension, dementia, encephalopathy, was sent to emergency department from the shelter for evaluation of shortness of breath. Oxygen saturation was low at the shelter. The patient had underlying dementia, was unable to provide any information. She denied chest pain. Pulse oximetry in ED was 93% on the room air. Laboratory workup revealed negative troponin. Lactic acid elevated - 4.1. WBC- 10.2. BUN -42 and creatinine -2.2. Urinalysis grossly positive for UTI. ABG showed no hypoxemia. EKG showed sinus tachycardia, but no ischemic changes. Chest x-ray revealed no acute cardiopulmonary disease. The patient started on fluid resuscitation, pancultured, started on empiric antibiotics and admitted for further management. ADMITTING DIAGNOSES: 1. Severe sepsis. 2. Urinary tract infection. 3. Renal failure. 4. Hypoxemia. 5. Dehydration. 6. Hypertension. 7. Diabetes. 8. Dementia. 9. Hypothyroidism. 10. Encephalopathy. 11. Sacral decubitus, stage I present on admission. HOSPITAL STAY: The patient admitted. The patient started on empiric antibiotics. ID consult was requested. Blood culture were negative. Urine culture was positive for Proteus. Repeated urine culture was positive for gram-negative bacilli. Per ID, recommended total seven days of antibiotics to complete course of antibiotic at the prison facility. The patient was hydrated. Director Presales followed. Renal ultrasound revealed mild renal cortical atrophy and bilateral nephrolithiasis. According to tourist information officer, renal failure mostly prerenal secondary to dehydration. With the hydration, creatinine down to 1.6. Supplemental oxygen, pulmonary toilet provided as needed. Rat Breeder closely followed. Chest x-ray revealed no acute cardiopulmonary disease. Psychiatrist followed the patient. According to psychiatrist the patient has chronic underlying dementia, and altered mental status on top of chronic dementia likely due to infection and renal failure. Psychiatric medication regimen was optimized by psychiatrist. Blood sugar was managed with sliding scale of insulin as needed. Blood pressure was managed with current regimen and was stable. Wound care provided as per wound care nurse recommendation. TSH was within normal limits. Current dose of Synthroid was continued. Swallow evaluation was done. The patient found to have moderate dysphagia. Recommended video swallow evaluation, A speech therapist provided recommendation for quality of life diet with strict aspiration precautions and one-to-one feeding. The patient was stable for discharge to the prison facility. DISCHARGE DIAGNOSES: 1. Severe sepsis. 2. Urinary tract infection with Proteus. 3. Acute renal failure, prerenal, secondary to dehydration. 4. Dehydration. 5. Hypoxemia, resolved. 6. Hypertension. 7. Acute toxic metabolic encephalopathy secondary to infection and renal failure and chronic dementia. 8. Dysphagia. 9. Hypothyroidism. 10. Diabetes mellitus. DISCHARGE MEDICATIONS: See medication reconciliation list. DISCHARGE INSTRUCTIONS: The patient discharged to prison facility. FOLLOWUP: Follow up with medical doctor at the facility. Daniel Ponce D.O. I have been assigned to dictate discharge summary on this account and I was not involved in the patient's management. Danika MckeeAmsterdam Memorial HospitalMarlon N.PFreddy DR: YAJAIRA JOB#: [id number] CC: JOSELUIS
--- NOTE | 2017-01-31 16:32 | Cardiology Report ---
APPROVED REPORT EKG Measurement Heart [id number] Sinus tachycardia with premature supraventricular complexes Otherwise normal ECG
== END 2017-01-29 22:10 | DRG 871 ==
LOC: EDBD 12:49 → EMR 13:24 → EDBEDREQ 14:00 → 2E 16:06 → 4E 01-27 15:51
DX: A41.9 Sepsis, unspecified organism (principal); N17.0 Acute kidney failure with tubular necrosis; L89.151 Pressure ulcer of sacral region, stage 1; F32.3 Major depressive disorder, single episode, severe with psychotic features; G92 Toxic encephalopathy; N39.0 Urinary tract infection, site not specified; F20.0 Paranoid schizophrenia; R65.20 Severe sepsis without septic shock; E11.9 Type 2 diabetes mellitus without complications; B96.4 Proteus (mirabilis) (morganii) as the cause of diseases classified elsewhere; G30.9 Alzheimer's disease, unspecified; F02.80 Dementia in other diseases classified elsewhere, unspecified severity, without behavioral disturbance, psychotic disturbance, mood disturbance, and anxiety; R13.10 Dysphagia, unspecified; E03.9 Hypothyroidism, unspecified; I10 Essential (primary) hypertension; R09.02 Hypoxemia
CPT/HCPCS: 36415; 36600; 71010; 76775; 80048; 80053; 80061; 80076; 80202; 81001; 81003; 82533; 82550; 82553; 82803; 82962; 82977; 83036; 83605; 83735; 83880; 84100; 84133; 84300; 84443; 84484; 84550; 85007; 85025; 86140; 87040; 87081; 87086; 87181; 89050; 92610; 93005; 94664; 97803